=== PATIENT | male | born 1955 | race Caucasian/White ===

== ENCOUNTER → 2019-05-28 | Outpatient (CLI) | payer MEDICARE ==
[~2019-05-28] MED LIST: ALPR.5 PO; AMLO10 PO; ASPI325 PO; ATEN100 PO; ATEN25 PO; ATOR40TA PO; Aspirin EC81 MG PO; CARV25 PO; CLON.1 PO; CLOP75 PO; HYDCHL12.5 PO; LISI20 PO; LISI5 PO; LOVA40 PO; META800 PO; NICO21TP TOP; OLME20 PO; OXYC10ER PO; OXYC10TA19 PO; TRAM50 PO; Zofran4 MG PO
== END | disposition home or self-care (01) ==
LOC: LAB 08:30 → LAB SHORT 08:30 → LAB FUT 05-21 11:55
PROVIDERS: Internal Medicine
DX: Z00.01 Encounter for general adult medical examination with abnormal findings (principal)
CPT/HCPCS: 81050

== ENCOUNTER 2020-01-15 22:11 | Observation (INO) | payer MEDICARE ==
[2020-01-15 22:37] LABS: BASOPHILS ABSOLUTE AUTO 0.04 K/mm3 (0.00-0.23); BASOPHILS PERCENT AUTO 1 % (0-2); EOSINOPHILS PERCENT AUTO 3 % (0-6); Hematocrit 48.4 % (37.0-53.0); IMMATURE GRAN ABSOLUTE AUTO 0.03 K/mm3 (0.00-0.10); IMMATURE GRAN PERCENT AUTO 0 % (0-1); LYMPHOCYTES ABSOLUTE AUTO 2.58 K/mm3 (0.84-5.20); LYMPHOCYTES PERCENT AUTO 29 % (21-46); MONOCYTES ABSOLUTE AUTO 0.67 K/mm3 (0.16-1.47); MONOCYTES PERCENT AUTO 8 % (4-13); Mean Corpuscular HGB 32.1 pg (26.0-34.0); Mean Corpuscular HGB Conc 33.1 g/dL (31.5-36.5); Mean Corpuscular Volume 97 fL (80-100); Mean Platelet Volume 9.1 fL (9.1-12.4); NEUTROPHILS ABSOLUTE AUTO 5.21 K/mm3 (1.96-9.15); NEUTROPHILS PERCENT AUTO 59 % (41-73); Platelet Count 213 K/mm3 (150-400); RDW Coefficient Variation 12.3 % (11.7-14.2); Red Blood Cell Count 4.98 M/mm3 (4.30-5.90); White Blood Cell Count 8.83 K/mm3 (4.00-11.30)
[2020-01-15] MEDS ORDERED: ATEN100 PO (23:14)
[2020-01-15 23:19] LABS: Alanine Aminotransfer (ALT/SGP 32 U/L (12-78); Albumin, Blood 3.6 g/dL (3.4-5.0); Albumin/Globulin Ratio 0.9 (0.8-1.8); Alk Phos 52 U/L (50-136); Anion Gap 7 mmol/L (6-16); Aspartate Aminotrans (AST/SGOT 27 U/L (12-37); Bilirubin, Total 0.6 mg/dL (0.1-1.0); Blood Urea Nitrogen 22 mg/dL (8-24); Bun/Creatinine Ratio 12.7 (12.0-20.0); CO2, Blood 25 mmol/L (21-32); Calcium, Blood 9.4 mg/dL (8.5-10.1); Chloride, Blood 104 mmol/L (98-108); Creatinine, Blood 1.73 mg/dL (0.60-1.20); Globulin, Blood 3.8 g/dL (2.2-4.0); Glomerular Filtration Rate 42 (60-); Glucose, Blood 91 mg/dL (70-99); Potassium, Blood 3.8 mmol/L (3.5-5.5); Sodium, Blood 136 mmol/L (136-145); Total Protein, Blood 7.4 g/dL (6.4-8.2); Troponin I <0.015 ng/mL (0.000-0.040)
[2020-01-16 03:09] LABS: Source, Urine Clean Catch
[2020-01-16 03:11] LABS: Appearance, Urine Clear (Clear); Bilirubin, Urine Neg (Neg); Blood, Urine Neg (Neg); Color, Urine Amber (P-Yellow); Glucose Qualitative, Urine Neg (Neg); Ketones, Urine 1+ (Neg); Leukocyte Esterase, Urine Neg (Neg); Nitrite, Urine Neg (Neg); Protein, Urine 2+ (Neg); Urobilinogen, Urine NORM (Normal)
[2020-01-16 03:16] LABS: Red Blood Cells, Urine 0-2 /hpf (0-2); Squamous Epithelial Cells Not Seen /hpf (Few); White Blood Cells, Urine 0-2 /hpf (0-5)
[2020-01-16 03:17] LABS: Bacteria Mod /hpf
[2020-01-16 08:07] LABS: BASOPHILS ABSOLUTE AUTO 0.04 K/mm3 (0.00-0.23); BASOPHILS PERCENT AUTO 1 % (0-2); EOSINOPHILS ABSOLUTE AUTO 0.41 K/mm3 (0.00-0.68); EOSINOPHILS PERCENT AUTO 5 % (0-6); Hematocrit 48.1 % (37.0-53.0); Hemoglobin 16.1 g/dL (13.5-17.5); IMMATURE GRAN ABSOLUTE AUTO 0.03 K/mm3 (0.00-0.10); IMMATURE GRAN PERCENT AUTO 0 % (0-1); LYMPHOCYTES ABSOLUTE AUTO 2.91 K/mm3 (0.84-5.20); LYMPHOCYTES PERCENT AUTO 34 % (21-46); MONOCYTES ABSOLUTE AUTO 0.57 K/mm3 (0.16-1.47); MONOCYTES PERCENT AUTO 7 % (4-13); Mean Corpuscular HGB 32.3 pg (26.0-34.0); Mean Corpuscular HGB Conc 33.5 g/dL (31.5-36.5); Mean Corpuscular Volume 97 fL (80-100); Mean Platelet Volume 9.2 fL (9.1-12.4); NEUTROPHILS ABSOLUTE AUTO 4.49 K/mm3 (1.96-9.15); NEUTROPHILS PERCENT AUTO 53 % (41-73); Platelet Count 176 K/mm3 (150-400); RDW Coefficient Variation 12.2 % (11.7-14.2); RDW Standard Deviation 43.6 fL (35.1-46.3); Red Blood Cell Count 4.98 M/mm3 (4.30-5.90); White Blood Cell Count 8.45 K/mm3 (4.00-11.30)
[2020-01-16 08:22] LABS: Alanine Aminotransfer (ALT/SGP 31 U/L (12-78); Albumin, Blood 3.5 g/dL (3.4-5.0); Albumin/Globulin Ratio 0.9 (0.8-1.8); Alk Phos 53 U/L (50-136); Anion Gap 3 mmol/L (6-16); Aspartate Aminotrans (AST/SGOT 27 U/L (12-37); Bilirubin, Total 0.6 mg/dL (0.1-1.0); Blood Urea Nitrogen 20 mg/dL (8-24); Bun/Creatinine Ratio 17.4 (12.0-20.0); CO2, Blood 27 mmol/L (21-32); CPK Creatine Kinase 159 U/L (39-308); Calcium, Blood 9.2 mg/dL (8.5-10.1); Chloride, Blood 107 mmol/L (98-108); Creatinine, Blood 1.15 mg/dL (0.60-1.20); Globulin, Blood 3.7 g/dL (2.2-4.0); Glomerular Filtration Rate >60 (60-); Glucose, Blood 84 mg/dL (70-99); Potassium, Blood 4.1 mmol/L (3.5-5.5); Sodium, Blood 137 mmol/L (136-145); Total Protein, Blood 7.2 g/dL (6.4-8.2); Troponin I <0.015 ng/mL (0.000-0.040)
[2020-01-16] MEDS ORDERED: CLON.1 PO (11:23)
[2020-01-16] MEDS ORDERED: LOVA40 PO (11:24)
[2020-01-16] MEDS ORDERED: HYDRA25 PO (11:44)
[2020-01-16 14:43] LABS: U Amphetamine Screen DETECTED; U Barbituate Screen Not Detected; U Benzodiazapine Screen Not Detected; U Cannabinoids Screen Not Detected; U Cocaine Screen Not Detected; U Methadone Screen Not Detected; U Methamphetamine Screen DETECTED; U Opiates Screen Not Detected; U Phencyclidine Screen Not Detected
[2020-01-16 14:44] LABS: U Buprenorphine Screen Not Detected; U Oxycodone Screen Not Detected; U Propoxyphene Screen Not Detected
[2020-01-16 15:30] LABS: CPK Creatine Kinase 157 U/L (39-308); Troponin I <0.015 ng/mL (0.000-0.040)
--- NOTE | 2020-01-16 16:50 | NUR ---
Echocardiogram completed.
--- NOTE | 2020-01-16 17:18 | NUR ---
ALERT. ORIENTED. PLEASANT. UNLABORED RESPIRATIONS. DENIES C.PAIN/PRESSURE. HAD FIRST PART OF STRESS TEST AND IS SCHEDULED FOR SECOND PART TOMORROW AT 1430. NO ACUTE CHANGES. TELE ON AND SR. WCTM
--- NOTE | 2020-01-17 11:35 | NUR ---
pt c/o low back pain. no tylenol available in [facility]. called dr garrett she will order tylenol.
--- NOTE | 2020-01-17 19:38 | NUR ---
PT dc home after completing cardiac stress test. He had no complaints of chest pain on room air. Discussed encouraged smoking cessation to promote better cardiac health. 50 plus year hx of tobacco use. Declined call from [place] [facility] but encouraged to use resource to assist with smoking cessation. Ambulated to ER doors where he had ride waiting. Tolerated well.
--- NOTE | 2020-01-17 19:52 | NUR ---
DISCHARGE NOTE- PT WAS GIVEN VERBAL AND WRITTEN DISCHARGE INSTRUCTIONS AND ACKNOWLEDGED UNDERSTANDING OF THEM. CALLED DR GIL AND WAS OK TO TELL THE PT STRESS TEST RESULTS WERE NEGATIVE AND THAT SHE WILL CALL WITH THE RESULTS IN THE NEXT DAY OR TWO. IV AND TELE DC'D PRIOR TO PT DISCHARGE. PT IN THE ROOOM DRESSED AND READY TO GO, AWAITING HIS RIDE. NIGHT STAFF TO ESCORT HIM OUT.
== END 2020-01-17 19:11 | disposition home or self-care (01) ==
LOC: ER 22:11 → ICUW 22:12 → ERHOLD 22:13 → MEDS 01-16 11:21
PROVIDERS: Emergency Medicine; Family Medicine; ADMIT Internal Medicine
DX: R07.89 Other chest pain (principal); I10 Essential (primary) hypertension; J44.9 Chronic obstructive pulmonary disease, unspecified; I25.2 Old myocardial infarction; R55 Syncope and collapse; T46.3X5A Adverse effect of coronary vasodilators, initial encounter; N17.9 Acute kidney failure, unspecified; E78.5 Hyperlipidemia, unspecified; E86.0 Dehydration; F17.210 Nicotine dependence, cigarettes, uncomplicated; F15.90 Other stimulant use, unspecified, uncomplicated; Z86.19 Personal history of other infectious and parasitic diseases; Z71.6 Tobacco abuse counseling; Z82.49 Family history of ischemic heart disease and other diseases of the circulatory system; Z79.02 Long term (current) use of antithrombotics/antiplatelets; Z79.82 Long term (current) use of aspirin; Z79.899 Other long term (current) drug therapy
CPT/HCPCS: 36415; 71046; 78452; 80053; 81001; 82550; 83880; 84484; 85025; 87086; 93005; 93010; 93017; 93306; 96360; 96361; 96372; 99285-25; A9270; A9270-GY; A9500; G0378; J0706; J1650; J2785; J7030

== ENCOUNTER 2020-12-21 18:35 | Inpatient (IN) | payer MEDICARE ==
[~2020-12-21] VITALS: Ht 182.9 cm; Wt 89.9 kg
[~2020-12-21 18:35] MED LIST changes: +HYDRA25 PO
[2020-12-21 19:00] LABS: Chloride (POC) 100 mmol/L (98-108); Creatinine (POC) 1.7 mg/dL (0.8-1.3); Glucose (ISTAT POC) 114 mg/dL (70-99); Potassium (POC) 4.3 mmol/L (3.5-5.5); Sodium (POC) 139 mmol/L (135-148); Total CO2 (POC) 28 mmol/L (21-32)
[2020-12-21 19:16] LABS: BASOPHILS ABSOLUTE AUTO 0.03 K/mm3 (0.00-0.23); BASOPHILS PERCENT AUTO 0 % (0-2); EOSINOPHILS ABSOLUTE AUTO 0.25 K/mm3 (0.00-0.68); EOSINOPHILS PERCENT AUTO 2 % (0-6); Hematocrit 50.6 % (37.0-53.0); Hemoglobin 16.9 g/dL (13.5-17.5); IMMATURE GRAN ABSOLUTE AUTO 0.03 K/mm3 (0.00-0.10); IMMATURE GRAN PERCENT AUTO 0 % (0-1); LYMPHOCYTES ABSOLUTE AUTO 1.75 K/mm3 (0.84-5.20); LYMPHOCYTES PERCENT AUTO 16 % (21-46); MONOCYTES ABSOLUTE AUTO 0.53 K/mm3 (0.16-1.47); MONOCYTES PERCENT AUTO 5 % (4-13); Mean Corpuscular HGB 31.9 pg (26.0-34.0); Mean Corpuscular HGB Conc 33.4 g/dL (31.5-36.5); Mean Corpuscular Volume 96 fL (80-100); Mean Platelet Volume 9.6 fL (9.1-12.4); NEUTROPHILS ABSOLUTE AUTO 8.21 K/mm3 (1.96-9.15); NEUTROPHILS PERCENT AUTO 76 % (41-73); Platelet Count 215 K/mm3 (150-400); RDW Coefficient Variation 13.7 % (11.7-14.2); RDW Standard Deviation 48.2 fL (35.1-46.3)
[2020-12-21 19:36] LABS: Albumin, Blood 3.7 g/dL (3.4-5.0); Albumin/Globulin Ratio 0.9 (0.8-1.8); Bilirubin, Total 0.4 mg/dL (0.1-1.0); Bun/Creatinine Ratio 11.3 (12.0-20.0); Calcium, Blood 9.3 mg/dL (8.5-10.1); Creatinine, Blood 1.59 mg/dL (0.60-1.20); Globulin, Blood 4.3 g/dL (2.2-4.0); Potassium, Blood 4.3 mmol/L (3.5-5.5); Troponin I 0.201 ng/mL (0.000-0.040)
[2020-12-21] MEDS ORDERED: ASPI81CH PO (21:35)
--- NOTE | 2020-12-21 23:23 | NUR ---
ASSUMED PT CARE FROM ADULT BASIC EDUCATION MANAGER STAFF AT 2110 PT LYING IN BED ALERT AND ORIENTED AND ABLE TO COMMUNICATE NEEDS. PER REPORT TWO STENTS PLACED TO RCA; HOWEVER, PT WILL NEED OPEN HEART SURGERY IN 6 MONTHS SECONDARY TO OTHER CORONARY ARTERY BLOCKAGES. NO C/O CHEST PAIN OR TIGHTNESS. DENIED N/V. BEAD OF SWEAT NOTED TO FOREHEAD. PT NOTED TO BE NSR WITH HR 60-70'S; NO ST ELEVATION NOTED AT TIME CARE WAS ASSUMED. PT HYPERTENSIVE WITH SBP 160-200'S. MEDICATED WITH PRN HYDRALAZINE PER ORDERS. PT NOTED TO BECOME SOB WITH MINIMAL EXERTION. MINIMAL SWELLING TO ANKLES/FEET. PT EDUCATED REGARDING ECHO RESULTS FROM A YEAR AGO COMPARED TO BEDSIDE ECHO PERFORMED BY DR. VASQUEZ IN ER. PT ADMITTED TO USE OF AMPHETAMINES D/T BACK PAIN AND THE LACK OF DESIRE TO GET ANYTHING DONE AROUND THE HOME. PROVIDED EXTENSIVE ASSIST WITH DRUG ABUSE IN RELATION TO CARDIAC DISEASE; PT DEMONSTRATED VERBAL UNDERSTANDING. PT ALSO STATED HE DRINKS "SCREW DRIVERS", 1-2 DRINKS DAILY. INFORMED OF THE POSSIBILITY OF WITHDRAWALING FROM ALCOHOL DURING THIS ADMIT; PT STATED HE HAS BEEN THROUGH WITHDRAWALS IN THE PAST. AGGRASTAT WAS TURNED OFF AT 2200. EKG OBTAINED 1 HOUR POST PROCEDURE WITH NO ELEVATION OR DEPRESSION NOTED. OBTAINED ORDERS FROM DR. VASQUEZ FOR PRN NORCO SECONDARY TO PT'S CHRONIC BACK PAIN IN WHICH AT HOME HE UTILIZES MARIJUANA FOR. ALSO OBTAINED DIET ORDERS AND FENTANYL ORDERS FOR CHEST PAIN. INFORMED DR. VASQUEZ OF PT'S BP, WHICH WAS SBP 160'S DSP 111 WITH NEW ORDERS FOR NORVASC 5MG NOW AND DAILY. NS INFUSING AT 100MLS/HR VIA 18G TO LEFT AC. TR BAND TO RIGHT RADIAL SITE THAT HAS BEEN STABLE WITH NO OOZING OR HEMATOMA NOTED. STARTED RELEASING AIR AROUND 2320. CALL LIGHT IS WITHIN REACH AND PT IS ABLE TO MAKE NEEDS KNOWN. PT'S FAMILY WAS AT BEDSIDE RIGHT AFTER PROCEDURE, BUT HAVE LEFT FOR THE NIGHT.
--- NOTE | 2020-12-22 05:33 | NUR ---
END OF SHIFT SUMMARY NO SIGNIFICANT CHANGES SINCE LAST ENTRY. RIGHT RADIAL SITE REMAINS STABLE; NO OOZING OR HEMATOMA NOTED. PT'S BIGGEST COMPLAINT HAS BEEN HIS BACK PAIN, WHICH IS CHRONIC FOR HIM; PT REALISTIC ABOUT GOALS OF PAIN MANAGEMENT. STATES GOAL FOR HIM WOULD BE A 4/10 WITH PAIN MOST OF NIGHT BEING 8/10. DENIES CHEST PAIN. HE IS DIAPHORETIC WITH A BEAD OF SWEAT ACROSS FOREHEAD; PT DAILY DRINKER AT HOME; HIGH RISK OF WITHDRAWALING DURING THIS HOSPITAL STAY. VSS, SEE FLOWSHEET. PT REMAINED NSR WITH HR 60-70'S; HE DID HAVE A 3 BEAT RUN OF NON-SUSTAINED VTACH. AFEBRILE AT THIS TIME. UTILIZING URINAL TO VOID. WILL CONTINUE TO MONITOR UNTIL REPORT IS HANDED OFF TO ONCOMING RN.
[2020-12-22 06:06] LABS: BASOPHILS ABSOLUTE AUTO 0.03 K/mm3 (0.00-0.23); BASOPHILS PERCENT AUTO 0 % (0-2); EOSINOPHILS ABSOLUTE AUTO 0.34 K/mm3 (0.00-0.68); EOSINOPHILS PERCENT AUTO 4 % (0-6); Hematocrit 46.4 % (37.0-53.0); Hemoglobin 15.8 g/dL (13.5-17.5); IMMATURE GRAN ABSOLUTE AUTO 0.02 K/mm3 (0.00-0.10); IMMATURE GRAN PERCENT AUTO 0 % (0-1); LYMPHOCYTES PERCENT AUTO 28 % (21-46); MONOCYTES ABSOLUTE AUTO 0.51 K/mm3 (0.16-1.47); MONOCYTES PERCENT AUTO 6 % (4-13); Mean Corpuscular HGB 31.7 pg (26.0-34.0); Mean Corpuscular HGB Conc 34.1 g/dL (31.5-36.5); Mean Corpuscular Volume 93 fL (80-100); Mean Platelet Volume 9.6 fL (9.1-12.4); NEUTROPHILS ABSOLUTE AUTO 5.47 K/mm3 (1.96-9.15); NEUTROPHILS PERCENT AUTO 62 % (41-73); Platelet Count 107 K/mm3 (150-400); RDW Coefficient Variation 13.8 % (11.7-14.2); RDW Standard Deviation 47.1 fL (35.1-46.3); Red Blood Cell Count 4.99 M/mm3 (4.30-5.90); White Blood Cell Count 8.87 K/mm3 (4.00-11.30)
[2020-12-22 06:29] LABS: Alanine Aminotransfer (ALT/SGP 48 U/L (12-78); Albumin, Blood 3.2 g/dL (3.4-5.0); Albumin/Globulin Ratio 0.8 (0.8-1.8); Alk Phos 89 U/L (50-136); Anion Gap 6 mmol/L (6-16); Aspartate Aminotrans (AST/SGOT 192 U/L (12-37); Bilirubin, Direct 0.1 mg/dL (0.0-0.3); Bilirubin, Indirect 0.2 mg/dL (0.1-0.7); Bilirubin, Total 0.3 mg/dL (0.1-1.0); Blood Urea Nitrogen 18 mg/dL (8-24); Bun/Creatinine Ratio 14.8 (12.0-20.0); CHOL/HDL RATIO 2.7; CO2, Blood 24 mmol/L (21-32); Calcium, Blood 8.8 mg/dL (8.5-10.1); Chloride, Blood 108 mmol/L (98-108); Cholesterol 153 mg/dL (50-200); Creatinine, Blood 1.22 mg/dL (0.60-1.20); Globulin, Blood 3.9 g/dL (2.2-4.0); Glomerular Filtration Rate >60 (60-); Glucose, Blood 103 mg/dL (70-99); HDL Cholesterol 56 mg/dL (>39); LDL/HDL RATIO 0.9; Low Density Lipoprotein Chol 53 mg/dL (0-110); Potassium, Blood 3.8 mmol/L (3.5-5.5); Sodium, Blood 138 mmol/L (136-145); Total Protein, Blood 7.1 g/dL (6.4-8.2); Triglycerides 221 mg/dL (30-160); Very Low Density Lipoprot Chol 44 mg/dL (6-32)
--- NOTE | 2020-12-22 07:30 | NUR ---
Received report from Elsy AYALA. Patient sitting on side of bed leaning on bedside table. He ia alert and oriented and is able to communicate his needs. He is on 2L O2 via NC and sats 97%.He biggest complaint, unmanaged back pain. MAEW. VSS, but hypertensive, r/t back pain and possible withdrawls. Possible transfer for CABG. Patient calls appropriately.
--- NOTE | 2020-12-22 07:34 | NUR ---
TR band site WNL's and cover with clear op site, no oozing or hematoma.
--- NOTE | 2020-12-22 09:30 | NUR ---
Patient up to chair independent and SBA with lines and tubes, systolic 150's and other VSS. Tolerated breakfast well. Dr Whitney consulted and in room assessing patient. NS at 100 ended. Remains on 2L O2 via NC sats >90%. 18ga IV to LAC and 20 ga to RAC both WNL's.
--- NOTE | 2020-12-22 11:30 | NUR ---
No significant changes with patient, he has been resting and just started eating lunch. States changes to pain meds worked better. VSS See EMR.
--- NOTE | 2020-12-22 14:24 | NUR ---
No changes with patient, denies any chest pain . Will medicate for back pain. He is independent in room and call appropriately when needing something. Dr Yi was by earlier for consent for cath tomorrow.
--- NOTE | 2020-12-22 18:19 | NUR ---
Patient remains independent in room from chair to bed to cammode. He calls appropriately when needing to get up. He tolerates meals withourt assist. He remains on 2l o2 and sats >90%. VSS, See EMR. Back hurts and medicate per MAR and keeps pain tolerable 5/10. Anxious at times and gets better after rest. He is PCU status since 1100, no rooms available.
--- NOTE | 2020-12-22 20:10 | NUR ---
ASSESSMENT/ASSUMED CARE PT AWAKE SITTING UP IN BED USING PHONE AND WATCHING TV. C/O BACK PAIN STATES,"I ALWAYS HAVE BACK PAIN NO MATTER WHAT I DO". PT MED WITH FENTANYL 25 MCQ. PT RESTING QUIETLY AFTER PAIN MED. LUNGS CLEAR ON 2 LITER VIA NC. PT DENIES SOB OR COUGH. PT STATES,"I HAD SOB WHEN I FIRTS CAME INTO THE HOSPITAL BUT IT HAS RESOLVED NOW". HEART RATE REGULAR. DENIES CHEST PAIN OR PRESSURE. BP ELEVATED PT GIVEN HS MEDS WITH HYDRALAZONE AND LOPRESSOR. BT+ ABD SOFT AND NONTENDER, DENIES N/V. RIGHT WRIST TR SITE CLEAR WITH OPSITE DRSG INTACT. IV 20G TO RIGHT AC SALINE LOCKED. SITE CLEAR AND FLUSHED WITHOUT DIFFICULTY. IV 18G TO LEFT AC SALINE LOCKED. SITE CLEAR AND FLUSHED WITHOUT DIFFICULTY. PT MOVING AND TURNING SELF IN BED. REFUSED HS CARE AT THIS TIME. STATES,"I'M GOING GOOD RIGHT NOW JUST GOING TO TRY AND SLEEP". PT WITH CALL LIGHT IN HAND.
--- NOTE | 2020-12-22 22:57 | NUR ---
PAIN PT UP TO CHAIR AND BED LINEN FIXED. THAN PT BACK TO BED. C/O BACK PAIN 01/10, MED WITH NORCO.
--- NOTE | 2020-12-23 00:14 | NUR ---
REASESSMENT PT SLEEPING. CELL PHONE IN BED WITH PT. VSS. RIGHT WRIST STABLE. RESP EVEN AND NONLABORED. SNORING NOTED AT TIMES. O2 AT 2 LITERS VIA NC.PT MOVING SELF IN BED.
[2020-12-23 02:04] LABS: BASOPHILS ABSOLUTE AUTO 0.05 K/mm3 (0.00-0.23); BASOPHILS PERCENT AUTO 1 % (0-2); EOSINOPHILS ABSOLUTE AUTO 0.47 K/mm3 (0.00-0.68); EOSINOPHILS PERCENT AUTO 5 % (0-6); Hematocrit 44.2 % (37.0-53.0); Hemoglobin 14.9 g/dL (13.5-17.5); IMMATURE GRAN ABSOLUTE AUTO 0.03 K/mm3 (0.00-0.10); IMMATURE GRAN PERCENT AUTO 0 % (0-1); LYMPHOCYTES ABSOLUTE AUTO 2.54 K/mm3 (0.84-5.20); LYMPHOCYTES PERCENT AUTO 26 % (21-46); MONOCYTES ABSOLUTE AUTO 0.58 K/mm3 (0.16-1.47); MONOCYTES PERCENT AUTO 6 % (4-13); Mean Corpuscular HGB 31.7 pg (26.0-34.0); Mean Corpuscular HGB Conc 33.7 g/dL (31.5-36.5); Mean Corpuscular Volume 94 fL (80-100); Mean Platelet Volume 9.9 fL (9.1-12.4); NEUTROPHILS ABSOLUTE AUTO 5.98 K/mm3 (1.96-9.15); NEUTROPHILS PERCENT AUTO 62 % (41-73); Platelet Count 116 K/mm3 (150-400); RDW Standard Deviation 48.5 fL (35.1-46.3); White Blood Cell Count 9.65 K/mm3 (4.00-11.30)
[2020-12-23 02:28] LABS: Alanine Aminotransfer (ALT/SGP 40 U/L (12-78); Albumin, Blood 3.1 g/dL (3.4-5.0); Albumin/Globulin Ratio 0.9 (0.8-1.8); Alk Phos 66 U/L (50-136); Anion Gap 6 mmol/L (6-16); Aspartate Aminotrans (AST/SGOT 102 U/L (12-37); Bilirubin, Total 0.5 mg/dL (0.1-1.0); Blood Urea Nitrogen 20 mg/dL (8-24); Bun/Creatinine Ratio 18.2 (12.0-20.0); CO2, Blood 27 mmol/L (21-32); Calcium, Blood 8.8 mg/dL (8.5-10.1); Chloride, Blood 103 mmol/L (98-108); Globulin, Blood 3.3 g/dL (2.2-4.0); Glomerular Filtration Rate >60 (60-); Glucose, Blood 96 mg/dL (70-99); Sodium, Blood 136 mmol/L (136-145); Total Protein, Blood 6.4 g/dL (6.4-8.2)
--- NOTE | 2020-12-23 03:59 | NUR ---
PT SITTING ON EDGE OF THE BED USING HIS PHONE. ASKED PT IF HE WANTED THE RECLINER PT STATED,"NO IT FEELS GOOD TO JUST SIT HERE AND MOVE MY BACK AROUND". VSS
--- NOTE | 2020-12-23 04:21 | NUR ---
HTN PT BP 183/91 HEART RATE 63, MED WITH 10 MG HYDRALAZINE AND BP CAME DOWN TO 127/68 HEART RATE 60.
--- NOTE | 2020-12-23 06:12 | NUR ---
SHIFT SUMMARY PT SITTING UP IN BED TALKING ON THE PHONE. DAUGHTER CALLED AND UPDATE GIVEN. PT MED WITH FENTANYL 25 MCQ AND NORCO DURING THE NIGHT FOR C/O BACK PAIN WITH GOOD RESULTS. VSS. PT UP TO SIDE OF THE BED AD [place] TO VOID. MOVING AND TURNING SELF IN BED. TROPONIN LEVELS DECREASING. NO CHEST PAIN OR PRESSURE REPORTED. PT MED WITH PRN HYDRALAZINE TWICE DURING THE NIGHT FOR HTN. REPORT TO ON COMING NURSE
--- NOTE | 2020-12-23 07:15 | NUR ---
Patient resting when getting report and awakens easily when entering room and falls back to sleep. He remains on 2L O2 via NC and sats >90%. He is alert and oriented and is able to communicate his needs. He shows mild tremors and staes mild anxiousness when awake. He has 18ga LAC and 20ga RAC bothe Flushed and SL'd. He is independent in bed and in room and calls when getting out of bed for lines. MAEW. [place]upe TR Band site C/D/I and has clear op site over area and no signs of hematoma or oozing. He will be going vback to quality assurance lab technician today before noon.
--- NOTE | 2020-12-23 09:50 | NUR ---
patient was taken to [facility] for 2nd cath. Call daughter at 0845 and advised so she could come to see him as she requested at her visit resterday. He is NPO and all am meds given with sips of water and tolerated well, medicated for back pain as well prior to them getting him.
--- NOTE | 2020-12-23 11:04 | NUR ---
Patient arrived back from bottle label inspector on monitor and has right TR Band access with 13 ml of air. Very small hematoma proximal of TR band and will continue to monitor. First set of VS are stable and WNL's. Patient is awake and oriented and able to communicate his needs and tolerating liquids well. 400 ml urine out
--- NOTE | 2020-12-23 13:30 | NUR ---
Patient has been with family at bedside. No significant changes. Right TR band site WNL's. VSS, See EMR. NS at 100ml/hr.
--- NOTE | 2020-12-23 15:30 | NUR ---
Let 3 ml air from TR band and no bleeding or oozing. VSS, See EMR. Patient independent in bed. NS continues at 100 ml/hr. He has been finally sleeping post pain medication.
--- NOTE | 2020-12-23 18:00 | NUR ---
All air out of Tr Band and placed bandaid over site. Site C/D/I and WNL's. he remains independent in room. VSS See EMR. Stands at bedside to urinate/ NS continues at 100ml/hr until bag is done.
--- NOTE | 2020-12-23 23:59 | NUR ---
CHECKED IN ON PATIENT, PATIENT APPEARS TO BE SLEEPING.
--- NOTE | 2020-12-24 04:05 | NUR ---
PT HAS BEEN SLEEPING, HE CALLS OUT IN HIS SLEEP. AWAKENS TO VOICE AND LIGHT TOUCH, DENIES ANY NEEDS. CONTINUES TO USE URINAL AND POSITION SELF PRN.
--- NOTE | 2020-12-24 06:51 | NUR ---
PT AWAKENS AND STATES HE WOULD LIKE SOME PAIN MEDICATION FOR HIS BACK, IF IT IS TIME. HE DENIES ANY OTHER COMPLAINTS AT THIS TIME, ASKED IF WAS HOLLERING OUT IN HIS SLEEP AND HE APOLOGIZED. HE CONTINUES TO BE WITHOUT ANY NEEDS.
[2020-12-24 07:21] LABS: BASOPHILS ABSOLUTE AUTO 0.04 K/mm3 (0.00-0.23); BASOPHILS PERCENT AUTO 0 % (0-2); EOSINOPHILS ABSOLUTE AUTO 0.62 K/mm3 (0.00-0.68); EOSINOPHILS PERCENT AUTO 7 % (0-6); Hematocrit 45.8 % (37.0-53.0); Hemoglobin 15.3 g/dL (13.5-17.5); IMMATURE GRAN ABSOLUTE AUTO 0.03 K/mm3 (0.00-0.10); IMMATURE GRAN PERCENT AUTO 0 % (0-1); LYMPHOCYTES ABSOLUTE AUTO 2.36 K/mm3 (0.84-5.20); LYMPHOCYTES PERCENT AUTO 25 % (21-46); MONOCYTES ABSOLUTE AUTO 0.63 K/mm3 (0.16-1.47); MONOCYTES PERCENT AUTO 7 % (4-13); Mean Corpuscular HGB 31.2 pg (26.0-34.0); Mean Corpuscular HGB Conc 33.4 g/dL (31.5-36.5); Mean Corpuscular Volume 93 fL (80-100); Mean Platelet Volume 9.7 fL (9.1-12.4); NEUTROPHILS ABSOLUTE AUTO 5.87 K/mm3 (1.96-9.15); NEUTROPHILS PERCENT AUTO 62 % (41-73); Platelet Count 139 K/mm3 (150-400); RDW Coefficient Variation 13.9 % (11.7-14.2); RDW Standard Deviation 47.7 fL (35.1-46.3); Red Blood Cell Count 4.91 M/mm3 (4.30-5.90); White Blood Cell Count 9.55 K/mm3 (4.00-11.30)
[2020-12-24 07:36] LABS: Anion Gap 5 mmol/L (6-16); Blood Urea Nitrogen 15 mg/dL (8-24); Bun/Creatinine Ratio 15.1 (12.0-20.0); CO2, Blood 27 mmol/L (21-32); Calcium, Blood 9.3 mg/dL (8.5-10.1); Chloride, Blood 102 mmol/L (98-108); Glomerular Filtration Rate >60 (60-); Glucose, Blood 92 mg/dL (70-99); Potassium, Blood 3.9 mmol/L (3.5-5.5); Sodium, Blood 134 mmol/L (136-145)
[2020-12-24] MEDS ORDERED: ATOR80 PO (10:38)
[2020-12-24] MEDS ORDERED: METO25ER PO (10:38)
[2020-12-24] MEDS ORDERED: BRILINTA90 M1 PO (10:39)
[2020-12-24] MEDS ORDERED: FURO20 PO (10:39)
[2020-12-24] MEDS ORDERED: Isosorbide Mono30 MG PO (10:40)
[2020-12-24] MEDS ORDERED: NICO2 PO (10:41)
[2020-12-24] MEDS ORDERED: NICOTINE GUM2 M1 PO (10:42)
--- NOTE | 2020-12-24 13:05 | NUR ---
SHIFT SUMMARY PT A&Ox4; CALM AND COOPERATIVE WITH CARE. PT APPEARS TO BE SLEEPING INTERMITTENLY T/O SHIFT. PT RESTING IN BED, UP WITH 1 PERSON ASSIST TO BATHROOM. PT DENIES CHEST PAIN, NAUSEA, DIZZINESS AND NUMB/TING. PT REPORTS BACK PAIN, MEDICATED PER EMAR. RIGHT RADIAL SIDE C/D/I. VSS. NO OTHER ACUTE CHANGES NOTED DURING SHIFT. PT AND DAUGHTER EDUCATED ON DISCHARGE INSTRUCTIONS, FOLLOW UP APPOINTMENT AND MEDICATIONS. PRESCRIPTIONS FAXED TO [facility] IN [facility] PER PT REQUEST. ATTEMPTED TO CALL AND MAKE FOLLOW UP APPOINTMENT FOR DR JACKSON, OFFICE CALLED BACK STATING THEY WOULD NOT SEE PATIENT UNTIL AFTER CARDIOLOGY FOLLOW UP. NOTIFIED PTSYED PLANS TO CALL AND SPEAK TO OFFICE. PT LEFT ROOM VIA WHEELCHAIR AT 1252.
== END 2020-12-24 12:52 | disposition home or self-care (01) | DRG 247 ==
LOC: ER 18:35 → ICUW 19:20
PROVIDERS: Family Medicine; Internal Medicine; Physician Assistant; ADMIT Internal Medicine Cardiovascular Disease
PROC: 027035Z Dilation of Coronary Artery, One Artery with Two Drug-eluting Intraluminal Devices, Percutaneous Approach (ICD-10-PCS; principal; 2020-12-21)
PROC: 4A023N7 Measurement of Cardiac Sampling and Pressure, Left Heart, Percutaneous Approach (ICD-10-PCS; 2020-12-21)
PROC: B2111ZZ Fluoroscopy of Multiple Coronary Arteries using Low Osmolar Contrast (ICD-10-PCS; 2020-12-22)
PROC: 027034Z Dilation of Coronary Artery, One Artery with Drug-eluting Intraluminal Device, Percutaneous Approach (ICD-10-PCS; 2020-12-23)
PROC: 4A023N7 Measurement of Cardiac Sampling and Pressure, Left Heart, Percutaneous Approach (ICD-10-PCS; 2020-12-23)
PROC: B2111ZZ Fluoroscopy of Multiple Coronary Arteries using Low Osmolar Contrast (ICD-10-PCS; 2020-12-23)
DX: I21.19 ST elevation (STEMI) myocardial infarction involving other coronary artery of inferior wall (principal); N17.9 Acute kidney failure, unspecified; N18.30 Chronic kidney disease, stage 3 unspecified; F10.20 Alcohol dependence, uncomplicated; M54.9 Dorsalgia, unspecified; G89.29 Other chronic pain; J44.9 Chronic obstructive pulmonary disease, unspecified; I25.10 Atherosclerotic heart disease of native coronary artery without angina pectoris; E11.22 Type 2 diabetes mellitus with diabetic chronic kidney disease; E78.5 Hyperlipidemia, unspecified; I12.9 Hypertensive chronic kidney disease with stage 1 through stage 4 chronic kidney disease, or unspecified chronic kidney disease; F15.10 Other stimulant abuse, uncomplicated; F17.210 Nicotine dependence, cigarettes, uncomplicated; Z71.51 Drug abuse counseling and surveillance of drug abuser; Z71.6 Tobacco abuse counseling; I25.2 Old myocardial infarction; Z79.899 Other long term (current) drug therapy; Z79.82 Long term (current) use of aspirin; Z98.890 Other specified postprocedural states; Z71.41 Alcohol abuse counseling and surveillance of alcoholic
CPT/HCPCS: 36415; 76937; 80047; 80048; 80053; 80061; 80076; 83036; 83880; 84484; 85014; 85025; 85347; 93005; 93010; 93306; 93458; 94640; 96374-59; 96375-59; 99152; 99153; 99285-25; A9270; C1725; C1769; C1874; C1887; C1894; C9600; C9606; J0360; J0461; J1644; J2250; J2270; J2370; J3010; J3246; J7030; J7040; J7050; Q9967

== ENCOUNTER 2020-12-28 04:04 | Inpatient (IN) | payer MEDICARE ==
[~2020-12-28] VITALS: Ht 182.9 cm; Wt 91.2 kg
[~2020-12-28 04:04] MED LIST changes: +ASPI81CH PO; +ATOR80 PO; +BRILINTA90 M1 PO; +FURO20 PO; +Isosorbide Mono30 MG PO; +METO25ER PO; +NICO2 PO; +NICOTINE GUM2 M1 PO
[2020-12-28 04:20] LABS: Calcium, Ionized (POC) 1.17 mmol/L (1.10-1.46); Chloride (POC) 102 mmol/L (98-108); Creatinine (POC) 1.4 mg/dL (0.8-1.3); Glucose (ISTAT POC) 165 mg/dL (70-99); Potassium (POC) 3.8 mmol/L (3.5-5.5); Sodium (POC) 141 mmol/L (135-148); Total CO2 (POC) 24 mmol/L (21-32)
[2020-12-28 04:23] LABS: Hematocrit 46.6 % (37.0-53.0); Hemoglobin 15.7 g/dL (13.5-17.5); Mean Corpuscular HGB 32.2 pg (26.0-34.0); Mean Corpuscular HGB Conc 33.7 g/dL (31.5-36.5); Mean Corpuscular Volume 96 fL (80-100); Mean Platelet Volume 9.1 fL (9.1-12.4); Platelet Count 228 K/mm3 (150-400); RDW Standard Deviation 49.2 fL (35.1-46.3); Red Blood Cell Count 4.87 M/mm3 (4.30-5.90); White Blood Cell Count 12.95 K/mm3 (4.00-11.30)
[2020-12-28 04:55] LABS: Alanine Aminotransfer (ALT/SGP 50 U/L (12-78); Albumin, Blood 3.4 g/dL (3.4-5.0); Albumin/Globulin Ratio 0.8 (0.8-1.8); Alk Phos 110 U/L (50-136); Anion Gap 6 mmol/L (6-16); Aspartate Aminotrans (AST/SGOT 36 U/L (12-37); Bilirubin, Total 0.3 mg/dL (0.1-1.0); Blood Urea Nitrogen 20 mg/dL (8-24); Bun/Creatinine Ratio 16.1 (12.0-20.0); CO2, Blood 27 mmol/L (21-32); Calcium, Blood 9.1 mg/dL (8.5-10.1); Chloride, Blood 106 mmol/L (98-108); Creatinine, Blood 1.24 mg/dL (0.60-1.20); Glomerular Filtration Rate >60 (60-); Glucose, Blood 164 mg/dL (70-99); Magnesium, Blood 2.1 mg/dL (1.6-2.4); Potassium, Blood 3.7 mmol/L (3.5-5.5); Sodium, Blood 139 mmol/L (136-145); Total Protein, Blood 7.4 g/dL (6.4-8.2)
[2020-12-28 05:57] LABS: Troponin I 0.518 ng/mL (0.000-0.040)
[2020-12-28 06:56] LABS: BASOPHILS ABSOLUTE AUTO 0.04 K/mm3 (0.00-0.23); BASOPHILS PERCENT AUTO 0 % (0-2); EOSINOPHILS ABSOLUTE AUTO 0.18 K/mm3 (0.00-0.68); EOSINOPHILS PERCENT AUTO 2 % (0-6); Hematocrit 49.2 % (37.0-53.0); Hemoglobin 16.2 g/dL (13.5-17.5); IMMATURE GRAN PERCENT AUTO 1 % (0-1); LYMPHOCYTES ABSOLUTE AUTO 0.72 K/mm3 (0.84-5.20); LYMPHOCYTES PERCENT AUTO 7 % (21-46); MONOCYTES ABSOLUTE AUTO 0.12 K/mm3 (0.16-1.47); MONOCYTES PERCENT AUTO 1 % (4-13); Mean Corpuscular HGB 31.7 pg (26.0-34.0); Mean Corpuscular HGB Conc 32.9 g/dL (31.5-36.5); Mean Corpuscular Volume 96 fL (80-100); NEUTROPHILS ABSOLUTE AUTO 9.28 K/mm3 (1.96-9.15); NEUTROPHILS PERCENT AUTO 89 % (41-73); RDW Coefficient Variation 13.8 % (11.7-14.2); RDW Standard Deviation 49.1 fL (35.1-46.3); Red Blood Cell Count 5.11 M/mm3 (4.30-5.90); White Blood Cell Count 10.44 K/mm3 (4.00-11.30)
--- NOTE | 2020-12-28 07:11 | NUR ---
ASSUMPTION OF CARE RECEIVED REPORT FROM FER IN FILE KEEPER. PATIENT ARRIVED TO ROOM VIA BED AT 0606. A/O, STATING 7/10 BACK PAIN FROM LAYING FLAT. REPOSITIONED PATIENT WITH SLIGHT RELIEF. WATER PROVIDED. VITALS STABLE. DR. MOYER TO BEDSIDE AND REVIEWED AGGROSTAT INFUSING, GAVE EKG ORDERS, AND SPOKE WITH ROLLER LEVELER OPERATOR REGARDING PO MEDICATIONS TO ORDER. AGGROSTAT WILL CONTINUE AT CURRENT RATE UNTIL BAG IS COMPLETE. FAMILY ARRIVED TO UNIT AND ARE CURRENLTY SITTING AT BEDSIDE. REPORT WAS GIVEN TO ERIC AYALA.
--- NOTE | 2020-12-28 07:24 | NUR ---
Assumed care of this patient. He is A/o x 4 and resting in bed. His daughter and son are at the bedside and have been notified of regular visiting hours. Pt reports he has chronic back pain but currently has not been taking any pain meds at home. The TR band is in place to right wrist with no abnormal bruising or bleeding noted. Pt is able to make his needs known.
[2020-12-28 07:54] LABS: Platelet Count 34 K/mm3 (150-400)
--- NOTE | 2020-12-28 10:00 | NUR ---
AT 1000 2 ML REMOVED FROM TR BAND BALOON TO RIGHT WRIST WITH NO BLEEDING OBSERVED.
--- NOTE | 2020-12-28 10:00 | NUR ---
AT 0900 1 ML REMOVED FROM THE BALOON ON THE TR BAND TO RIGHT WRIST. NO BLEEDING OBSERVED.
--- NOTE | 2020-12-28 10:07 | NUR ---
lab reported critcal values on Trops and platelets this morning and they were called to the charge nurse and Dr Morales. Dr Morales gave orders to stop the Aggrastat, which was done and to hold this morning's dose of the Brilinta since he had it in the ER early this morning. Pt was able to take all other ordered PO meds with no issue. He does complain of chronic back pain and tylenol was given as ordered. Pt has a heat pad on and has been repositioned in bed. He is currently resting with his eyes closed. He has been using the urinal at the bedside and has been calling appropriately.
--- NOTE | 2020-12-28 10:34 | NUR ---
2 ml of air removed from TR band at 1030. No bleeding noted.
--- NOTE | 2020-12-28 10:48 | NUR ---
2 ml air removed from TR band at 1045 with no bleeding noted.
--- NOTE | 2020-12-28 11:17 | NUR ---
3 ml air out of the TR band at 11:15 with no bleeding observed.
--- NOTE | 2020-12-28 11:47 | NUR ---
3 ML OF AIR REMOVED FROM TR Band with no bleeding observed. Pt is sitting up in bed eating lunch.
--- NOTE | 2020-12-28 12:59 | NUR ---
TR band removed as ordered with no bleeding observed. Transparent dressing applied. Pt is resting in bed with eyes closed and has his call light in reach.
--- NOTE | 2020-12-28 16:53 | NUR ---
Shift Summary Pt has been a/o x 4 all day with no c/o chest pain or discomfort. He does report chronic back pain and tylenol has been given as ordered. He was offered to get out of bed and sit in the recliner but declined and has been using the heating pad on and off throughout the day. Dr Morales ordered a hospitlaist to assist with pain mangement and Dr Morrison has just seen the pt at the bedside. Pt remains on room air. Right wrist access site has a clear window dressing in place with no bleeding. Dr Morales rounded on the pt this afternoon. Pt son came back to visit this afternoon but left after a short stay since the pt was sleeping. The pt is able to make his needs known. And has his call light in reach.
[2020-12-29 04:18] LABS: BASOPHILS ABSOLUTE AUTO 0.04 K/mm3 (0.00-0.23); BASOPHILS PERCENT AUTO 0 % (0-2); EOSINOPHILS ABSOLUTE AUTO 0.44 K/mm3 (0.00-0.68); EOSINOPHILS PERCENT AUTO 4 % (0-6); Hematocrit 43.7 % (37.0-53.0); Hemoglobin 14.4 g/dL (13.5-17.5); IMMATURE GRAN ABSOLUTE AUTO 0.04 K/mm3 (0.00-0.10); IMMATURE GRAN PERCENT AUTO 0 % (0-1); LYMPHOCYTES ABSOLUTE AUTO 2.71 K/mm3 (0.84-5.20); LYMPHOCYTES PERCENT AUTO 27 % (21-46); MONOCYTES ABSOLUTE AUTO 0.81 K/mm3 (0.16-1.47); MONOCYTES PERCENT AUTO 8 % (4-13); Mean Corpuscular HGB 31.4 pg (26.0-34.0); Mean Corpuscular Volume 95 fL (80-100); Mean Platelet Volume 12.3 fL (9.1-12.4); NEUTROPHILS ABSOLUTE AUTO 5.93 K/mm3 (1.96-9.15); NEUTROPHILS PERCENT AUTO 60 % (41-73); RDW Coefficient Variation 13.9 % (11.7-14.2); RDW Standard Deviation 48.9 fL (35.1-46.3); Red Blood Cell Count 4.58 M/mm3 (4.30-5.90); White Blood Cell Count 9.97 K/mm3 (4.00-11.30)
[2020-12-29 04:21] LABS: Platelet Count 24 K/mm3 (150-400)
[2020-12-29 04:35] LABS: Anion Gap 3 mmol/L (6-16); Blood Urea Nitrogen 17 mg/dL (8-24); Bun/Creatinine Ratio 16.7 (12.0-20.0); CO2, Blood 28 mmol/L (21-32); Chloride, Blood 105 mmol/L (98-108); Creatinine, Blood 1.02 mg/dL (0.60-1.20); Glomerular Filtration Rate >60 (60-); Glucose, Blood 98 mg/dL (70-99); Potassium, Blood 3.9 mmol/L (3.5-5.5); Sodium, Blood 136 mmol/L (136-145)
--- NOTE | 2020-12-29 04:56 | NUR ---
PT UPDATE LAB CALLED WITH CRITICAL VALUE OF PLATELETS: 24. CALL PLACED TO MD GIL. MD GIL WITH NO ORDERS AT THIS TIME.
--- NOTE | 2020-12-29 04:59 | NUR ---
SHIFT SUMMARY PT A&OX4. SP02>90% ON RA. TELEMETRY READS SR, HR 60'S-70'S. PT HAS R RADIAL SITE, NO BLEEDING, BRUISING, HEMATOMA. PT DENIES CP. PT DID C/O OF BACK PAIN THIS SHIFT, NORCO GIVEN PER EMAR X1. PT USED URINAL TO VOID. PT SLEPT MOST OF SHIFT. WILL GIVE REPORT TO ONCOMING NURSE.
--- NOTE | 2020-12-29 05:20 | NUR ---
ASSUMED CARE RECEIVED BEDSIDE REPORT FROM DARNELL AYALA AND ASSUMED CARE. PT IS RESTING IN BED, RADIAL SITE WNL WITH NO COMPLICATIONS, DENIES CHEST PAIN, C/O CHRONIC BACK PAIN WHICH HAS BEEN STABLE AND MEDICATED PER EMAR. NO ACUTE CONCERNS, WILL REPORT OFF TO DAY SHIFT RN.
[2020-12-29 11:35] LABS: BASOPHILS ABSOLUTE AUTO 0.03 K/mm3 (0.00-0.23); BASOPHILS PERCENT AUTO 0 % (0-2); EOSINOPHILS PERCENT AUTO 5 % (0-6); IMMATURE GRAN ABSOLUTE AUTO 0.03 K/mm3 (0.00-0.10); IMMATURE GRAN PERCENT AUTO 0 % (0-1); LYMPHOCYTES PERCENT AUTO 23 % (21-46); MONOCYTES PERCENT AUTO 7 % (4-13); Mean Corpuscular HGB 31.8 pg (26.0-34.0); Mean Corpuscular HGB Conc 33.4 g/dL (31.5-36.5); Mean Corpuscular Volume 95 fL (80-100); Mean Platelet Volume 11.2 fL (9.1-12.4); NEUTROPHILS PERCENT AUTO 64 % (41-73); RDW Coefficient Variation 13.7 % (11.7-14.2); RDW Standard Deviation 48.3 fL (35.1-46.3)
[2020-12-29 12:43] LABS: Platelet Count 28 K/mm3 (150-400)
[2020-12-29 12:51] LABS: Red Blood Cell Count 4.77 M/mm3 (4.30-5.90)
[2020-12-29 12:52] LABS: MONOCYTES ABSOLUTE AUTO 0.69 K/mm3 (0.16-1.47); NEUTROPHILS ABSOLUTE AUTO 6.05 K/mm3 (1.96-9.15)
[2020-12-29 12:53] LABS: EOSINOPHILS ABSOLUTE AUTO 0.47 K/mm3 (0.00-0.68)
[2020-12-29 12:55] LABS: Hematocrit 45.3 % (37.0-53.0)
--- NOTE | 2020-12-29 15:22 | NUR ---
Echocardiogram completed.
--- NOTE | 2020-12-29 18:29 | NUR ---
SHIFT SUMMARY PT A&Ox4, CALM AND COOPERATIVE WITH CARE. PT RESTING IN BED DURING SHIFT. UP WITH 1 PERSON ASSIST. PT REPORTS BACK PAIN, MEDICATED PER EMAR. PT DENIES CHEST PAIN/PRESSURE, SOB, NAUSEA AND DIZZINESS T/O SHIFT. CALLED DR MOYER TO [facility] ORDERS FOR BRILINTA AND CURRENT PLATLET COUNT, CONTINUE WITH SCHEDULE MEDICATION AND ENSURE PT DOES NOT RECEIIVE HEPARIN OR LOVENOX. ELEVATED BP NOTED, MEDICATED PER EMAR. OTHER VSS. NO OTHER ACUTE CHANGES DURING SHIFT. REPORT GIVEN TO ONCOMING RN.
--- NOTE | 2020-12-30 03:33 | NUR ---
TELE EVENT CHERRY SORTER REPORTED SINUS KAIR FOLLOWED BY A 2.8 SECOND PAUSE, PT WAS SLEEPING AT THE TIME, THIS RN WAS IN THE ROOM, PT WOKE UP WITH NO PROBLEMS, DENIES ANY CHEST PAIN/PRESSURE OR SYMPTOMS, VSS, RESP UNLABORED, ON RA. WCTM, CALL LIGHT IN REACH. COMPUTER VIDEO GAME DESIGNER NOTIFIED.
[2020-12-30 04:21] LABS: BASOPHILS ABSOLUTE AUTO 0.04 K/mm3 (0.00-0.23); BASOPHILS PERCENT AUTO 0 % (0-2); EOSINOPHILS ABSOLUTE AUTO 0.51 K/mm3 (0.00-0.68); EOSINOPHILS PERCENT AUTO 5 % (0-6); Hemoglobin 14.8 g/dL (13.5-17.5); IMMATURE GRAN ABSOLUTE AUTO 0.07 K/mm3 (0.00-0.10); IMMATURE GRAN PERCENT AUTO 1 % (0-1); LYMPHOCYTES ABSOLUTE AUTO 2.77 K/mm3 (0.84-5.20); LYMPHOCYTES PERCENT AUTO 27 % (21-46); MONOCYTES ABSOLUTE AUTO 0.88 K/mm3 (0.16-1.47); MONOCYTES PERCENT AUTO 8 % (4-13); Mean Corpuscular HGB 31.5 pg (26.0-34.0); Mean Corpuscular HGB Conc 33.6 g/dL (31.5-36.5); Mean Corpuscular Volume 94 fL (80-100); Mean Platelet Volume 10.6 fL (9.1-12.4); NEUTROPHILS ABSOLUTE AUTO 6.18 K/mm3 (1.96-9.15); NEUTROPHILS PERCENT AUTO 59 % (41-73); Platelet Count 65 K/mm3 (150-400); RDW Coefficient Variation 13.3 % (11.7-14.2); RDW Standard Deviation 45.8 fL (35.1-46.3); White Blood Cell Count 10.45 K/mm3 (4.00-11.30)
[2020-12-30 04:33] LABS: Anion Gap 5 mmol/L (6-16); Blood Urea Nitrogen 18 mg/dL (8-24); Bun/Creatinine Ratio 16.4 (12.0-20.0); CO2, Blood 27 mmol/L (21-32); Calcium, Blood 8.9 mg/dL (8.5-10.1); Chloride, Blood 105 mmol/L (98-108); Glomerular Filtration Rate >60 (60-); Glucose, Blood 84 mg/dL (70-99); Potassium, Blood 3.9 mmol/L (3.5-5.5); Sodium, Blood 137 mmol/L (136-145)
[2020-12-30 05:01] LABS: TOTAL CELLS COUNTED 2
--- NOTE | 2020-12-30 06:25 | NUR ---
SUMMARY PT REMAINS A&O X4, VSS, ON RA. HE CONTINUES TO DENY CP/PRESSURE. RIGHT RADIAL SITE WNL. PO NORCO GIVEN FOR BACK PAIN, PT IS TOLERATING PO INTAKE, VOIDING WNL, PT HAD A 2.8 SECOND PAUSE REPORTED BY TELE THROUGH THE NIGHT, ASYMPTOMATIC, HOSPITALIST & ELEVATOR OPERATOR SERVICE NOTIFIED, NO NEW ORDERS.CALL LIGHT IN REACH
[2020-12-30] MEDS ORDERED: AMLO10 PO (15:02)
[2020-12-30] MEDS ORDERED: LISI20 PO (15:03)
[2020-12-30] MEDS ORDERED: FURO20 PO (15:03)
[2020-12-30] MEDS ORDERED: NITR.4SL SL (15:05)
[2020-12-30] MEDS ORDERED: Ventolin/Prove6.7 GM INH (15:09)
[2020-12-30] MEDS ORDERED: LOSA50 PO (16:08)
--- NOTE | 2020-12-30 16:44 | NUR ---
DISCHARGE SUMMARY PT A&Ox4; FORGETFUL AT TIMES. PT RESTING IN BED DUIRNG SHIFT. UP TO SHOWER WITH SBA. PT REPORTS CHRONIC BACK PAIN, MEDICATED PER EMAR. PT DENIES SOB, CHEST PAIN/PRESSURE, NAUSEA AND DIZZINESS. DR MOYER NOTIFIED HTIS AM OF 12.8 SECOND PAUSE DURING CURATOR HORTICULTURAL MUSEUM, DR TO PLACE NEW ORDERS. NO FURTHER EVENTS PER TELE. VS. NO OTHER ACUTE CHANGES NOTED DURING SHIFT. PT AND DAUGHTER EDUCATED ON DISCHARGE INSTRUCTIONS, FOLLOW UP APPOINTMENTS AND MEDICATIONS. PRESCRIPTIONS CALLED/FAXED TO [facility] PER PT REQUEST, PT RECIEVIED BRILLINTA SAMPLES FROM CARDIOLOGY OFFICE AND COUPON SENT HOME. PT LEFT ROOM VIA [employer] AT 1643.
[2020-12-31 12:10] LABS: HEPARIN INDUCED PLATELET AB 0.102 OD (0.000-0.400)
== END 2020-12-30 16:43 | disposition home or self-care (01) | DRG 250 ==
LOC: ER 04:04 → ICUW 04:23 → PCU 18:14
PROVIDERS: Student in an Organized Health Care Education/Training Program; ADMIT Internal Medicine Cardiovascular Disease
PROC: 02713ZZ Dilation of Coronary Artery, Two Arteries, Percutaneous Approach (ICD-10-PCS; principal; 2020-12-28)
PROC: B24BZZ3 Ultrasonography of Heart with Aorta, Intravascular (ICD-10-PCS; 2020-12-28)
DX: I97.190 Other postprocedural cardiac functional disturbances following cardiac surgery (principal); I21.A9 Other myocardial infarction type; T82.867A Thrombosis due to cardiac prosthetic devices, implants and grafts, initial encounter; I47.2 Ventricular tachycardia; B19.20 Unspecified viral hepatitis C without hepatic coma; E78.5 Hyperlipidemia, unspecified; G89.29 Other chronic pain; F17.210 Nicotine dependence, cigarettes, uncomplicated; F10.20 Alcohol dependence, uncomplicated; N18.30 Chronic kidney disease, stage 3 unspecified; I12.9 Hypertensive chronic kidney disease with stage 1 through stage 4 chronic kidney disease, or unspecified chronic kidney disease; F15.10 Other stimulant abuse, uncomplicated; I25.10 Atherosclerotic heart disease of native coronary artery without angina pectoris; J44.9 Chronic obstructive pulmonary disease, unspecified; D69.6 Thrombocytopenia, unspecified; Z95.5 Presence of coronary angioplasty implant and graft; Z79.02 Long term (current) use of antithrombotics/antiplatelets; Z79.82 Long term (current) use of aspirin; Z79.899 Other long term (current) drug therapy; Y83.1 Surgical operation with implant of artificial internal device as the cause of abnormal reaction of the patient, or of later complication, without mention of misadventure at the time of the procedure
CPT/HCPCS: 36415; 71045; 80047; 80048; 80053; 83735; 84484; 85014; 85025; 85027; 85347; 86022; 86850; 86900; 86901; 92920; 92921; 92941; 92978; 93005; 93010; 93308; 93321; 93454; 94640; 94760; 94762; 96374-59; 99152; 99153; 99285-25; A9270; C1725; C1753; C1769; C1887; C1894; J1644; J2250; J2370; J3010; J3246; J7030; J7040; J7050; Q9967

== ENCOUNTER 2021-01-02 00:08 | Inpatient (IN) | payer MEDICARE ==
[~2021-01-02] VITALS: Ht 182.9 cm; Wt 90.7 kg
[~2021-01-02 00:08] MED LIST changes: +LOSA50 PO; +NITR.4SL SL; +Ventolin/Prove6.7 GM INH
[2021-01-02 00:59] LABS: BASOPHILS ABSOLUTE AUTO 0.06 K/mm3 (0.00-0.23); BASOPHILS PERCENT AUTO 0 % (0-2); EOSINOPHILS ABSOLUTE AUTO 0.33 K/mm3 (0.00-0.68); EOSINOPHILS PERCENT AUTO 2 % (0-6); Hematocrit 44.7 % (37.0-53.0); Hemoglobin 14.8 g/dL (13.5-17.5); IMMATURE GRAN ABSOLUTE AUTO 0.08 K/mm3 (0.00-0.10); IMMATURE GRAN PERCENT AUTO 1 % (0-1); LYMPHOCYTES ABSOLUTE AUTO 2.92 K/mm3 (0.84-5.20); LYMPHOCYTES PERCENT AUTO 21 % (21-46); MONOCYTES PERCENT AUTO 5 % (4-13); Mean Corpuscular HGB 31.7 pg (26.0-34.0); Mean Corpuscular HGB Conc 33.1 g/dL (31.5-36.5); Mean Corpuscular Volume 96 fL (80-100); Mean Platelet Volume 9.5 fL (9.1-12.4); NEUTROPHILS ABSOLUTE AUTO 9.57 K/mm3 (1.96-9.15); NEUTROPHILS PERCENT AUTO 70 % (41-73); Platelet Count 206 K/mm3 (150-400); RDW Coefficient Variation 13.7 % (11.7-14.2); RDW Standard Deviation 48.3 fL (35.1-46.3); Red Blood Cell Count 4.67 M/mm3 (4.30-5.90); White Blood Cell Count 13.66 K/mm3 (4.00-11.30)
[2021-01-02 01:25] LABS: Alanine Aminotransfer (ALT/SGP 46 U/L (12-78); Albumin, Blood 3.4 g/dL (3.4-5.0); Albumin/Globulin Ratio 0.8 (0.8-1.8); Alk Phos 98 U/L (50-136); Anion Gap 5 mmol/L (6-16); Aspartate Aminotrans (AST/SGOT 39 U/L (12-37); Bilirubin, Total 0.5 mg/dL (0.1-1.0); Blood Urea Nitrogen 28 mg/dL (8-24); Bun/Creatinine Ratio 22.8 (12.0-20.0); CO2, Blood 27 mmol/L (21-32); Chloride, Blood 103 mmol/L (98-108); Creatinine, Blood 1.23 mg/dL (0.60-1.20); Globulin, Blood 4.2 g/dL (2.2-4.0); Glomerular Filtration Rate >60 (60-); Glucose, Blood 114 mg/dL (70-99); Potassium, Blood 4.5 mmol/L (3.5-5.5); Sodium, Blood 135 mmol/L (136-145); Total Protein, Blood 7.6 g/dL (6.4-8.2)
[2021-01-02 05:44] LABS: BASOPHILS ABSOLUTE AUTO 0.04 K/mm3 (0.00-0.23); BASOPHILS PERCENT AUTO 0 % (0-2); EOSINOPHILS ABSOLUTE AUTO 0.31 K/mm3 (0.00-0.68); EOSINOPHILS PERCENT AUTO 2 % (0-6); Hematocrit 42.2 % (37.0-53.0); Hemoglobin 14.2 g/dL (13.5-17.5); IMMATURE GRAN ABSOLUTE AUTO 0.08 K/mm3 (0.00-0.10); IMMATURE GRAN PERCENT AUTO 1 % (0-1); LYMPHOCYTES ABSOLUTE AUTO 2.62 K/mm3 (0.84-5.20); LYMPHOCYTES PERCENT AUTO 21 % (21-46); MONOCYTES ABSOLUTE AUTO 0.42 K/mm3 (0.16-1.47); MONOCYTES PERCENT AUTO 3 % (4-13); Mean Corpuscular HGB Conc 33.6 g/dL (31.5-36.5); Mean Corpuscular Volume 95 fL (80-100); Mean Platelet Volume 9.2 fL (9.1-12.4); NEUTROPHILS ABSOLUTE AUTO 9.27 K/mm3 (1.96-9.15); NEUTROPHILS PERCENT AUTO 73 % (41-73); Platelet Count 177 K/mm3 (150-400); RDW Coefficient Variation 13.5 % (11.7-14.2); RDW Standard Deviation 47.2 fL (35.1-46.3); Red Blood Cell Count 4.44 M/mm3 (4.30-5.90); White Blood Cell Count 12.74 K/mm3 (4.00-11.30)
--- NOTE | 2021-01-02 06:04 | NUR ---
SHIFT SUMMARY PT ADMITTED FROM DIESEL PLANT OPERATOR - TR BAND R RADIAL SITE. CAME WITH 9CC INFLATED, BEGAN DEFLATION AT 0530 01/02/21. MINIMAL SWELLING, BUT STILL SOFT. VSS. ALERT AND ORIENTED, COOPERATIVE WITH PLAN OF CARE. ABLE TO MAKE NEEDS KNOWN. SATS >90% ON ROOM AIR. TELE NSR. NO C/O CHEST PAIN, BUT DOES C/O CHRONIC BACK PAIN - SEE EMAR. VOIDING TO URINAL, ADEQUATE UOP. NO BM. BEDREST FOR NOW. CALL LIGHT WITHIN REACH, BED IN LOWEST POSITION. WILL CONTINUE TO MONITOR.
[2021-01-02 06:23] LABS: CHOL/HDL RATIO 1.9; Cholesterol 89 mg/dL (50-200); HDL Cholesterol 46 mg/dL (>39); LDL/HDL RATIO 0.7; Low Density Lipoprotein Chol 32 mg/dL (0-110); Triglycerides 56 mg/dL (30-160); Very Low Density Lipoprot Chol 11 mg/dL (6-32)
--- NOTE | 2021-01-02 09:42 | NUR ---
PATIENT ALERT AND ORIENTED X4. ON ROOM AIR SATING MID 90'S. TELE SHOWING SINUS WITH HR 70'S. ONE EPISODE OF CHEST "PRESSURE" THIS AM. PT STATES IT IS NOT PAINFUL BUT UNCOMFORTABLE. MORNING MEDS GIVEN AND MEDICATED PER EMAR AND PRESSURE/PAIN DECREASING. PT STATES HE THINKS THE PAIN IS MORE FROM INDEGESTION. DR. MOYER AWARE AND NEW ORDERS FOR PRILOSEC. TR BAND IN PLACE THIS AM, WITH 5ML OF AIR LEFT. AIR DEFLEATED NOW AND TR BAND REMAINS IN PLACE. WILL REMOVE ONE HOUR POST AIR DEFLATION. GOLF BALL SIZED BRUISING PROXIMAL TO TR BAND. SOFT AND NON TENDER. SCANT AMOUNT OF DRAINAGE REMAINS UNCHANGED. RADIAL PULSES STRONG. ARM BOARD IN PLACE AND POST OP EDUCATION REVIEWED. BRUISING SCATTERED THROUGHOUT. BOWEL TONES HEARD. PT EATING BREAKFAST AND DRINKING FLUIDS. CALL LIGHT IN REACH. WILL CONTINUE TO MONITOR.
--- NOTE | 2021-01-02 10:08 | NUR ---
TR BAND REMOVED. NO DRAINAGE. ARM BOARD IN PLACE. WILL CONTINUE TO MONITOR SITE.
[2021-01-02 10:31] LABS: SARS-Cov-2 (COVID-19) PCR, MMC NEGATIVE (NEGATIVE)
--- NOTE | 2021-01-02 11:09 | NUR ---
Echocardiogram completed.
--- NOTE | 2021-01-02 12:02 | NUR ---
PLAN FOR DISCHARGE LATER THIS AFTERNOON. PT AGREEABLE. DR. MOYER IN TO DISCUSS FUTURE OPTIONS WITH PATIENT AND TREATMENT PLANS. CALL PLACED TO DAUGHTER FOR UPDATE. PT EATING LUNCH. COMPLAINS OF SOME PRESSURE IN CHEST RELATED TO PERICARDITIS. NO CHANGES IN TELE. DR. MOYER AWARE AND TORDAL GIVEN. WILL CONTINUE TO MONITOR.
[2021-01-02] MEDS ORDERED: Nicoderm Cq1 EAC1 TOP (14:48)
[2021-01-02] MEDS ORDERED: COLCRYS0.6 M1 PO (14:50)
[2021-01-02] MEDS ORDERED: IBUP600 PO (14:53)
[2021-01-02] MEDS ORDERED: OMEP20ER PO (14:54)
--- NOTE | 2021-01-02 15:39 | NUR ---
DISCHARGE: NO ACUTE CHANGES, NO NEW EPISODES OF CHEST PAIN. VITAL SIGNS STABLE. PT COMPLAINS OF BACK PAIN, MEDICATED PER EMAR. IV'S TAKEN OUT PER PROTOCOL. DISCHARGE INSTRUCTIONS REVIEWED AND QUESTIONS ANSWERED. DAUGHTER IN TO PICK PATIENT UP. RIGHT RADIAL SIGHT WNL, NO SIGNS OF BLEEDING. REMAINS SOFT AND NON TENDER. NO DRAINAGE UNDER TEGADERM, ARM BOARD IN PLACE. POST RADIAL SIGHT INSTRUCTIONS REVIEWED. PT LEFT UNIT VIA WHEELCHAIR WITH ALL PERSONAL BELONGINGS.
== END 2021-01-02 15:38 | disposition home or self-care (01) | DRG 282 ==
LOC: ER 00:08 → ICUW 01:26
PROVIDERS: Emergency Medicine; ADMIT Internal Medicine Cardiovascular Disease
PROC: 4A023N7 Measurement of Cardiac Sampling and Pressure, Left Heart, Percutaneous Approach (ICD-10-PCS; principal; 2021-01-02)
PROC: B2111ZZ Fluoroscopy of Multiple Coronary Arteries using Low Osmolar Contrast (ICD-10-PCS; 2021-01-02)
PROC: B2151ZZ Fluoroscopy of Left Heart using Low Osmolar Contrast (ICD-10-PCS; 2021-01-02)
DX: I24.1 Dressler's syndrome (principal); I21.19 ST elevation (STEMI) myocardial infarction involving other coronary artery of inferior wall; I95.9 Hypotension, unspecified; Z20.822 Contact with and (suspected) exposure to COVID-19; I25.10 Atherosclerotic heart disease of native coronary artery without angina pectoris; I12.9 Hypertensive chronic kidney disease with stage 1 through stage 4 chronic kidney disease, or unspecified chronic kidney disease; E78.5 Hyperlipidemia, unspecified; N18.30 Chronic kidney disease, stage 3 unspecified; F15.10 Other stimulant abuse, uncomplicated; F10.20 Alcohol dependence, uncomplicated; J44.9 Chronic obstructive pulmonary disease, unspecified; F17.210 Nicotine dependence, cigarettes, uncomplicated; Z71.51 Drug abuse counseling and surveillance of drug abuser; Z71.6 Tobacco abuse counseling; Z79.82 Long term (current) use of aspirin; Z79.899 Other long term (current) drug therapy; Z98.890 Other specified postprocedural states; Z95.5 Presence of coronary angioplasty implant and graft
CPT/HCPCS: 36415; 71045; 76937; 80053; 80061; 83880; 84484; 85025; 85347; 93005; 93010; 93308; 93321; 93458; 93571; 93572; 96374; 96375; 99152; 99153; 99285-25; A9270; C1769; C1887; C1894; J1644; J1885; J2250; J2405; J3010; J7030; J7050; Q9967; U0004

== ENCOUNTER 2021-02-10 00:43 | Emergency (ER) | payer MEDICARE ==
[~2021-02-10] VITALS: Ht 180.3 cm; Wt 97.5 kg
[~2021-02-10 00:43] MED LIST changes: +COLCRYS0.6 M1 PO; +IBUP600 PO; +Nicoderm Cq1 EAC1 TOP; +OMEP20ER PO
[2021-02-10 01:06] LABS: BASOPHILS ABSOLUTE AUTO 0.04 K/mm3 (0.00-0.23); BASOPHILS PERCENT AUTO 0 % (0-2); EOSINOPHILS ABSOLUTE AUTO 0.19 K/mm3 (0.00-0.68); EOSINOPHILS PERCENT AUTO 2 % (0-6); Hematocrit 45.2 % (37.0-53.0); Hemoglobin 15.3 g/dL (13.5-17.5); IMMATURE GRAN ABSOLUTE AUTO 0.03 K/mm3 (0.00-0.10); IMMATURE GRAN PERCENT AUTO 0 % (0-1); LYMPHOCYTES ABSOLUTE AUTO 2.78 K/mm3 (0.84-5.20); LYMPHOCYTES PERCENT AUTO 24 % (21-46); MONOCYTES ABSOLUTE AUTO 0.68 K/mm3 (0.16-1.47); MONOCYTES PERCENT AUTO 6 % (4-13); Mean Corpuscular HGB 32.6 pg (26.0-34.0); Mean Corpuscular HGB Conc 33.8 g/dL (31.5-36.5); Mean Corpuscular Volume 96 fL (80-100); Mean Platelet Volume 8.6 fL (9.1-12.4); NEUTROPHILS ABSOLUTE AUTO 7.88 K/mm3 (1.96-9.15); NEUTROPHILS PERCENT AUTO 68 % (41-73); Platelet Count 212 K/mm3 (150-400); RDW Standard Deviation 50.3 fL (35.1-46.3); Red Blood Cell Count 4.69 M/mm3 (4.30-5.90)
[2021-02-10 01:27] LABS: Albumin, Blood 3.9 g/dL (3.4-5.0); Bilirubin, Total 0.6 mg/dL (0.1-1.0); Bun/Creatinine Ratio 16.9 (12.0-20.0); Creatinine, Blood 1.24 mg/dL (0.60-1.20); Globulin, Blood 3.8 g/dL (2.2-4.0); Total Protein, Blood 7.7 g/dL (6.4-8.2); Troponin I 0.024 ng/mL (0.000-0.040)
== END 2021-02-10 04:55 | disposition home or self-care (01) ==
LOC: ER 00:43
PROVIDERS: Emergency Medicine
DX: R07.89 Other chest pain (principal); R06.02 Shortness of breath; I10 Essential (primary) hypertension; F17.210 Nicotine dependence, cigarettes, uncomplicated; I25.2 Old myocardial infarction; Z79.02 Long term (current) use of antithrombotics/antiplatelets; Z79.899 Other long term (current) drug therapy
CPT/HCPCS: 71045; 80053; 83880; 84484; 85025; 93005; 93010; 99285-25

== ENCOUNTER 2021-10-26 23:20 | Inpatient (IN) | payer MEDICARE ==
[~2021-10-26] VITALS: Ht 180.3 cm; Wt 89.1 kg
[2021-10-27 00:10] LABS: BASOPHILS ABSOLUTE AUTO 0.06 K/mm3 (0.00-0.23); BASOPHILS PERCENT AUTO 1 % (0-2); EOSINOPHILS ABSOLUTE AUTO 0.13 K/mm3 (0.00-0.68); EOSINOPHILS PERCENT AUTO 2 % (0-6); Hematocrit 41.3 % (37.0-53.0); Hemoglobin 14.3 g/dL (13.5-17.5); IMMATURE GRAN ABSOLUTE AUTO 0.02 K/mm3 (0.00-0.10); IMMATURE GRAN PERCENT AUTO 0 % (0-1); LYMPHOCYTES ABSOLUTE AUTO 0.97 K/mm3 (0.84-5.20); LYMPHOCYTES PERCENT AUTO 13 % (21-46); MONOCYTES ABSOLUTE AUTO 0.56 K/mm3 (0.16-1.47); MONOCYTES PERCENT AUTO 7 % (4-13); Mean Corpuscular HGB 33.1 pg (26.0-34.0); Mean Corpuscular HGB Conc 34.6 g/dL (31.5-36.5); Mean Corpuscular Volume 96 fL (80-100); Mean Platelet Volume 9.1 fL (9.1-12.4); NEUTROPHILS ABSOLUTE AUTO 5.82 K/mm3 (1.96-9.15); NEUTROPHILS PERCENT AUTO 77 % (41-73); Platelet Count 133 K/mm3 (150-400); RDW Coefficient Variation 14.3 % (11.7-14.2); Red Blood Cell Count 4.32 M/mm3 (4.30-5.90); White Blood Cell Count 7.56 K/mm3 (4.00-11.30)
[2021-10-27 00:24] LABS: Alanine Aminotransfer (ALT/SGP 181 U/L (12-78); Albumin/Globulin Ratio 1.1 (0.8-1.8); Alk Phos 83 U/L (50-136); Anion Gap 11 mmol/L (6-16); Aspartate Aminotrans (AST/SGOT 189 U/L (12-37); Bilirubin, Total 0.5 mg/dL (0.1-1.0); Blood Urea Nitrogen 21 mg/dL (8-24); Bun/Creatinine Ratio 19.1 (12.0-20.0); CO2, Blood 26 mmol/L (21-32); Calcium, Blood 9.1 mg/dL (8.5-10.1); Chloride, Blood 96 mmol/L (98-108); Globulin, Blood 3.8 g/dL (2.2-4.0); Glomerular Filtration Rate >60 (60-); Glucose, Blood 103 mg/dL (70-99); Potassium, Blood 3.3 mmol/L (3.5-5.5); Sodium, Blood 133 mmol/L (136-145); Total Protein, Blood 7.8 g/dL (6.4-8.2)
[2021-10-27] MEDS ORDERED: ATEN25 (02:25)
[2021-10-27] MEDS ORDERED: Clotrimazole-Be15 GM (02:25)
[2021-10-27] MEDS ORDERED: FUROSEMIDE20 MG PO (02:25)
[2021-10-27] MEDS ORDERED: POTASSIUM CITR10 ME2 PO (02:25)
[2021-10-27] MEDS ORDERED: ISOSORBIDE MONO30 MG PO (02:25)
[2021-10-27] MEDS ORDERED: BRILINTA90 M7 PO (02:25)
[2021-10-27] MEDS ORDERED: OMEP20ER PO ×2 (02:25→05:05)
[2021-10-27] MEDS ORDERED: ASPI81CH PO (05:04)
[2021-10-27] MEDS ORDERED: FURO20 PO (05:04)
[2021-10-27] MEDS ORDERED: POTA10T PO (05:04)
[2021-10-27] MEDS ORDERED: TICA90TA PO (05:04)
[2021-10-27] MEDS ORDERED: Isosorbide Mono30 MG PO (05:05)
[2021-10-27] MEDS ORDERED: ATEN50 PO (05:05)
--- NOTE | 2021-10-27 11:57 | NUR ---
CARE ASSUMPTION/ARRIVAL TO PCU PATIENT ARRIVED TO PCU FROM THE ED VIA GURNEY. PATIENT TRANSFERED TO PCU BED VIA SLIDER SHEET. PATIENT IS LETHARGIC AND ALERT TO SELF UPON ARRIVAL. PERSARY. PATIENT DID NOT KNOW THE YEAR, OR WHY HE WAS HERE AT THE HOSPITAL. THIS RN PROVIDED EDUCATION TO THE PATIENT. VSS. TELE SR. PATIENT LUNG SOUNDS EXPIRATORY WHEEZE UPPER AND LOWER LOBES. SPO2 >90% ON 2L NC. PATIENT ABD SOFT NONTENDER. PATIENT HAS BRUSING ON THE LEFT SIDE BOTTOM, AND LEFT ABD PHOTO IN THE CHART. PATIENT HAS REDDNESS TO BOTTOM, PICTURES IN CHART. REPOSITIONING EVERY TWO HOURS TO PREVENT SKIN BREAKDOWN. SEE SHIFT ASSESSMENT FOR FULL DETAILS. PATIENT CIWA SCORE WAS 8 UPON ARRIVAL. MOST RECENT CIWA SCORE WAS 9. PATIENT REPORTED OF BACK PAIN AND RECEIVED PAIN MED PER EMAR. COMPLETED ADMIT INFO WITH PATIENTS DAUGHTER SINCE PATIENT UNABLE TO PRPVIDE RESPONSES. PATIENT HAS A NICOTINE PATCH PLACED TO RIGHT SHOULDER. BED ALARM ON AND BED IN LOWEST POSITION. WILL CONTINUE TO MONITOR AND PROVIDE CARE.
--- NOTE | 2021-10-27 17:42 | NUR ---
SHIFT SUMMARY PATIENT IS LETHARGIC TO ALERT AT TIMES. AND ORIENTED TO SELF, PLACE, AND SURROUDINGS. PATIENT HAS MOMENTS OF CONFUSION AND FORGETFULNESS AMD WILL TRY TO GET OUT OF BED. BED ALARM IS ON. PATIENT HAS URGENCY WITH URINATION AND THAT IS WHEN PATIENT WILL TRY TO GET OUT OF BED. THIS RN PROVIDED EDUCATION TO THE PATIENT SHIFT SUPERINTENDENT LIGHT AND NOT GETTING OUT OF BED WITHOUT ASSISTANCE. PATIENT CIWA SCORES RANGE FROM 8-11. PATIENT IS TREMULOUS. PATIENT HAS GOOD FAMILY SUPPORT SYSTEM, SPOKE WITH BOTH DAUGHTER AND SON. PATIENT HAS FAMILY AT BEDSIDE CURRENTLY. NO ACUTE CHANGES. CALL LIGHT WITHIN REACH AND BED IN LOWEST POSITION WITH BED ALARM ON. WILL CONTINUE TO MONITOR AND PROVIDE CARE UTNIL HAND OFF WITH NEXT SHIFT.
--- NOTE | 2021-10-27 21:17 | NUR ---
CARE ASSUMPTION: PATIENT IN BED RECEIVING BREATHING TREATMENT. AUDIBLE WHEEZING NOTED. PATIENT ORIENTED TO SELF AND PLACE. VISIBLE TREMORS AND MILD SWEATING. CIWA 11. BED LOW AND ALARM ON.
--- NOTE | 2021-10-27 22:25 | NUR ---
UPDATE: PATIENT'S TREMORS AND CONFUSION INCREASED. MEDICATED PER EMAR. PATIENT'S DAUGHTER CALLED AT 2210 AND WAS UPDATED ON CURRENT STATUS AND TREATMENT PLAN.
[2021-10-28 05:27] LABS: BASOPHILS ABSOLUTE AUTO 0.03 K/mm3 (0.00-0.23); BASOPHILS PERCENT AUTO 1 % (0-2); EOSINOPHILS ABSOLUTE AUTO 0.18 K/mm3 (0.00-0.68); EOSINOPHILS PERCENT AUTO 4 % (0-6); Hematocrit 40.7 % (37.0-53.0); Hemoglobin 13.7 g/dL (13.5-17.5); IMMATURE GRAN ABSOLUTE AUTO 0.01 K/mm3 (0.00-0.10); IMMATURE GRAN PERCENT AUTO 0 % (0-1); LYMPHOCYTES ABSOLUTE AUTO 1.21 K/mm3 (0.84-5.20); LYMPHOCYTES PERCENT AUTO 25 % (21-46); MONOCYTES ABSOLUTE AUTO 0.38 K/mm3 (0.16-1.47); MONOCYTES PERCENT AUTO 8 % (4-13); Mean Corpuscular HGB 33.4 pg (26.0-34.0); Mean Corpuscular HGB Conc 33.7 g/dL (31.5-36.5); Mean Corpuscular Volume 99 fL (80-100); NEUTROPHILS ABSOLUTE AUTO 3.08 K/mm3 (1.96-9.15); NEUTROPHILS PERCENT AUTO 63 % (41-73); Platelet Count 95 K/mm3 (150-400); RDW Coefficient Variation 14.8 % (11.7-14.2); RDW Standard Deviation 53.8 fL (35.1-46.3); White Blood Cell Count 4.89 K/mm3 (4.00-11.30)
--- NOTE | 2021-10-28 05:50 | NUR ---
SHIFT SUMMARY: PATIENT'S CIWAS HAVE BEEN 11-16. MEDICATED PER EMAR. PATIENT A&O X2 (SELF AND PLACE). PATIENT VERY PAINFUL FROM CHRONIC BACK PAIN - MEDICATED PER EMAR. ATIVAN HAS HELPED PATIENT REST. PATIENT WAS IN RECLINER FOR A COUPLE HOURS WHICH ALIEVED SOME BACK PAIN. HE WAS A 1 PERSON ASSIST WITH GAIT BELT TO RECLINER, BUT REQUIRED TWO PEOPLE WITH GAIT BELT TO RETURN TO BED HIS TREMORS INCREASED. PATIENT ON CAMERA HE DOES TRY TO GET OOB - BED ALARM IS ALSO SET. PATIENT KEEPS LOOKING FOR/ASKING ABOUT HIS PHONE. PER DAUGHTER HIS PHONE IS WITH HIS COUSIN AND THE FAMILY WILL BRING IT IN TODAY. WILL CONTINUE TO MONITOR AND REPORT TO ONCOMING RN.
[2021-10-28 05:59] LABS: Alanine Aminotransfer (ALT/SGP 122 U/L (12-78); Albumin, Blood 3.4 g/dL (3.4-5.0); Albumin/Globulin Ratio 0.9 (0.8-1.8); Alk Phos 56 U/L (50-136); Anion Gap 7 mmol/L (6-16); Aspartate Aminotrans (AST/SGOT 104 U/L (12-37); Bilirubin, Total 0.7 mg/dL (0.1-1.0); Blood Urea Nitrogen 14 mg/dL (8-24); Bun/Creatinine Ratio 17.1 (12.0-20.0); CO2, Blood 28 mmol/L (21-32); Chloride, Blood 102 mmol/L (98-108); Creatinine, Blood 0.82 mg/dL (0.60-1.20); Globulin, Blood 3.6 g/dL (2.2-4.0); Glomerular Filtration Rate >60 (60-); Glucose, Blood 88 mg/dL (70-99); Potassium, Blood 3.5 mmol/L (3.5-5.5); Sodium, Blood 137 mmol/L (136-145)
--- NOTE | 2021-10-28 17:55 | NUR ---
ASSUMED CARE OF PT AT 0700 TODAY. PT CONFUSED AND AGITATED T/O THE SHIFT TODAY WITH CIWA SCORE OF 20 ON ASSESSMENT. MEDICATED PER EMAR, DR MARIE MADE AWARE OF PT'S CIWA SCORE AND USE OF ATIVAN/LIBRIUM PER MD ORDERS. PT PLACED IN GLO VEST FOR SAFETY D/T TO PT ATTEMPTING TO CLIMB OUT OF BED, PULLING OFF LINES AND TUBES. SEE DOCUMENTED CIWA SCORES AND RESTRAINT REASSESSMENT DOCUMENTATION. PT'S SON AND DTR CAME TO BEDSIDE TO VISIT THIS AFTERNOON. BY THE END OF THE SHIFT, PT HAS MAXED OUT ON ATIVAN AND IS NEARLY MAXED OUT ON LIBRIUM. MD NOTIFIED, ICU CHARGE NURSE NOTIFIED OF LIKELY NEED FOR TRANSFER.
--- NOTE | 2021-10-28 20:06 | NUR ---
TRANSFER TO ICU 15 1899 RECEIVED REPORT FROM MARCELA AYALA. ORDERS TO TRANSFER TO ICU ON PRECEDEX GTT FOR INCREASED ETOH W/DRAWAL AND ATIVAN MAXIMUM DOSING. NO BED AVAILABLE IN ICU AT THAT TIME. THIS RN, STARTED PRECEDEX GTT AY 0.3MCG DUE TO PATIENTS INCREASINGLY UNSAFE STATE WITH AGITATION AND IMPULSIVENESS DESPITE BEING IN GLO VEST AND ON CAMERA. HR 110'S, UNCHANGED. PT HYPERTENSIVE, LOWERED TO NORMOTENSIVE READINGS POST PRECEDEX INITIATION. PT MUCH LESS AGITATED NOW. RESTING QUIETELY IN BED. 2008 REPORT GIVEN TO [facility] FORESTRY EXTENSION SPECIALIST. PT TRANSFERRING TO ICU 15. VSS. PRECEDEX INFUSING STILL AT 0.3MCG. CALM AND QUIET CURRENTLY.
--- NOTE | 2021-10-28 20:15 | NUR ---
PT REPORT RECEIVED. PT MOVED TO ICU BED. ASSUMED PT CARE. PT IS VERY DROWSY, IS AROUSABLE TO VOICE AND IS DISSORIENTED X4. PT MOVES ALL EXTREMETIES AND IS IMPULSIVE.
--- NOTE | 2021-10-29 06:33 | NUR ---
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 PT HAS RECEIVED TOTAL OF 10 MG IV ATIVAN. PT NOT ABLE TO CONSISTANTLY TAKE PO MEDICATIONS BUT SEEMS TO TOLLERATED WELL WHEN VERY AWAKE. PO THIAMINE AND FOLIC ACID WERE CHANGED TO IV. PT REMAINS IN THE GLO WAIST RESTRAINT DUE TO HIS CONTINUED IMPULSIVE BEHAVIOUR. PT WAS ABLE TO TAKE 50 MG OF LIBRIUM AND IS TOLLERATING 0.5 MCG/KG/HR.
--- NOTE | 2021-10-29 08:45 | NUR ---
PT IS RESTLESS/AGITATED. MUMBLES. UNABLE TO STATE YEAR OR MONTH. UNABLE TO STATE NAME. CONSTANTLY TRYING TO GET OOB AND NOT ABLE TO REDIRECT. ATIVAN GIVEN. SEE CIWA. PT IS ON PRECEDEX GTT SEE FLOWSHEET.
--- NOTE | 2021-10-29 17:53 | NUR ---
SUMMARY PT RESTING IN BED. SEDATED WITH PRECEDEX. ATIVAN GIVEN PER CIWA T/O THE DAY. PT MUMBLES WHEN ASKED QUESTIONS. NO CLEAR CONVERSATION. WILL WAKE TREMULOUS AND AGITATED. PT IS NOT REDIRECTABLE AND IS CLIMBING OVER THE BED RAIL. STARTED ON TPN TODAY DUE TO INABILITY TO TAKE PO. INCONT IN ATTENDS, UNABLE TO GET PT TO USE URINAL. NO OTHER CHANGES.
--- NOTE | 2021-10-29 19:13 | NUR ---
1900- PT ATTEMPTING TO EXIT BED AND IS ONLY ORIENTED TO SELF. CIWA 23 WITH PRECEDEX RUNNING AT 0.5. ATIVAN 4 MG GIVEN. SAFETY CHECK COMPLETED, ASSUMED PT CARE.
[2021-10-30 03:24] LABS: BASOPHILS ABSOLUTE AUTO 0.03 K/mm3 (0.00-0.23); BASOPHILS PERCENT AUTO 1 % (0-2); EOSINOPHILS ABSOLUTE AUTO 0.14 K/mm3 (0.00-0.68); EOSINOPHILS PERCENT AUTO 3 % (0-6); Hematocrit 41.1 % (37.0-53.0); IMMATURE GRAN ABSOLUTE AUTO 0.02 K/mm3 (0.00-0.10); IMMATURE GRAN PERCENT AUTO 0 % (0-1); LYMPHOCYTES ABSOLUTE AUTO 0.75 K/mm3 (0.84-5.20); LYMPHOCYTES PERCENT AUTO 14 % (21-46); MONOCYTES ABSOLUTE AUTO 0.32 K/mm3 (0.16-1.47); MONOCYTES PERCENT AUTO 6 % (4-13); Mean Corpuscular HGB 33.7 pg (26.0-34.0); Mean Corpuscular HGB Conc 34.1 g/dL (31.5-36.5); Mean Corpuscular Volume 99 fL (80-100); Mean Platelet Volume 9.3 fL (9.1-12.4); NEUTROPHILS PERCENT AUTO 76 % (41-73); Platelet Count 87 K/mm3 (150-400); RDW Coefficient Variation 14.1 % (11.7-14.2); RDW Standard Deviation 51.8 fL (35.1-46.3); Red Blood Cell Count 4.16 M/mm3 (4.30-5.90); White Blood Cell Count 5.36 K/mm3 (4.00-11.30)
[2021-10-30 03:39] LABS: Albumin, Blood 3.1 g/dL (3.4-5.0); Anion Gap 7 mmol/L (6-16); Blood Urea Nitrogen 12 mg/dL (8-24); Bun/Creatinine Ratio 18.3 (12.0-20.0); CO2, Blood 28 mmol/L (21-32); Calcium, Blood 9.5 mg/dL (8.5-10.1); Chloride, Blood 103 mmol/L (98-108); Creatinine, Blood 0.66 mg/dL (0.60-1.20); Glomerular Filtration Rate >60 (60-); Glucose, Blood 151 mg/dL (70-99); Magnesium, Blood 1.8 mg/dL (1.6-2.4); Phosphorus, Blood 2.2 mg/dL (2.5-4.9); Potassium, Blood 3.6 mmol/L (3.5-5.5); Sodium, Blood 138 mmol/L (136-145); Triglycerides 148 mg/dL (30-160)
--- NOTE | 2021-10-30 05:40 | NUR ---
PT INITIALLY ORIENTED TO SELF ONLY THEN BECAME MORE AGITATED AND CONFUSED. PT GIVEN ATIVAN 4 MG X3 FOR CIWA'S OF 18-25, THEN THE HOSPITALIST WAS CONSULTED FOR FURTHUUR DIRECTION. OK RECEIVED FROM DR. FLORES TO TITRATE PRECEDEX TO 1.4 AND TO GIVE PHENOBARBATOL 130 MG IF NOT EFFECTIVE. PT DID REQUIRE MAX DOSE OF PRECEDEX AND WAS STILL AGITATED AND REP[EATEDLY TRYING TO EXIT THE BED SO PHENOBARBATOL 130MG WAS GIVEN. PT BCAME MUCH MORE CALM AFTER THIS AND THE PRECEDEX WAS TITRATED DOWN TO 0.8 MCG/KG/HR. PT IS COMPLETELY DISSORIENTED AT THIS TIME BUT IS MUCH MORE CALM. A CONDOM CATH WAS PLACED AT THE START OF SHIFT AND THE PT VOIDED MORE THAN 18OO ML.
--- NOTE | 2021-10-30 08:15 | NUR ---
Dr Morrison in to see patient. Discussed pt's ativan and precedex requirements, including that pt got 24 mg ativan during overnight caregiver. Discussed that pt got one dose of phenobarbital last night. Discussed pt's BP trend. Provider plans to write for additional phenobarbital if needed.
--- NOTE | 2021-10-30 08:18 | NUR ---
Escalated restraints to vest and SWB because patient removing breathing tx and pulling at IV lines repeatedly despite education and redirection.
--- NOTE | 2021-10-30 08:25 | NUR ---
AM NOTE: ASSUMED CARE OF PT AT 0700. PT ASLEEP AMD RESTING IN BED WHEN I ENTERED THE FLOOR. RT AT BEDSIDE AT 0730 TO ADMINISTER A BREATHING TREATMENT; AT THIS TIME PT BECAME AGGITATED AND ATTEMPTED TO PULL AT MASK, LINES AND TUBES. SWR WERE APPLIED TO PREVENT LINES OR TUBES FROM BEING PULLED. VITAL SIGNS ARE STABLE WITH HR 86, SBP 130-140, TEMP AT 99.3 AND SLIGHTLY TACHYPNENIC WITH RR AT 22. PT REMAINS CONFUSED WITH SLURRED SPEECH; PT WAS ABLE TO OPEN EYES WHEN ASKED; EYES PERRLA. PT RESPONDS TO VERBAL AND PAIN STIMULI DURING PT CARE. BED BATH CONDUCTED THIS AM DUE TO CONDOM CATHETER BECOMING DE-ATTACHED; FULL BED CHANGED COMPLETED. WARM BLANKETS WERE APPLIED AND CALL LIGHT IN REACH. CIWA SCORES REEVALUATED THIS AM AND PT IS SCORING AT 7. WILL CONTINUE TO MONITOR THROUGHOUT THE DAY.
--- NOTE | 2021-10-30 09:55 | NUR ---
18 GA IV removed from L forearm due to leaking. 18 GA IV inserted to L antecubital. Dressed with tegaderm. 20 GA IV inserted to R hand. Dressed with tegaderm. Existing 20 GA IV to R forearm assessment WNL, infusing thiamine at this time.
--- NOTE | 2021-10-30 10:11 | NUR ---
Patient has been calm and has not required any IV push medications. Precedex paused to assess neuro status. Pt became more agitated, but was not able to answer questions or follow commands. Precedex restarted. Currently at 0.8 mcg/kg/hr.
--- NOTE | 2021-10-30 12:25 | NUR ---
Pt's daughter, Mckenna, called unit for update. Pt's son Jack in to see patient. Inquired about pt's alcohol intake with both family members and they both stated that pt drinks 1/2 gallon of vodka per day. Jack details "he was starting to cut back on his drinking, he didn't even quit cold turkey, and here we are".
--- NOTE | 2021-10-30 15:38 | NUR ---
AFTERNOON UPDATE: PT HAS BEEN MOSTLY COMFORTABLE THIS AFTERNOON. PTS AGGITATION WORSENED FROM THIS MORNING, SO PRECEDEX WAS TITRATED UP TO 1.4 MCG/KG/HR WITH ADJUCT DOSES OF ATIVAN ADMINISTERED PER EMAR. PT HAS TOLERATED REPOSITIONING AND PT CARE THIS SHIFT. PT HR HAS BEEN IN THE 80'S, O2 94< ON RA, AND RR AT 22; IN THE 1500 HOUR, SBP REACHED THE 180'S AND PT MEDICATED PER EMAR. PT IS NOW RECIEVING A BREATHING TREATMENT BY RT AND IS TOLERATING IT WELL COMPARED TO THIS AM WHEN HE FOUGHT AGAINST IT. AT THE 1400 HOUR, PT WAS ABLE TO TELL ME HIS NAME BUT WAS NOT ABLE TO GIVE ANY OTHER CREDIBLE INFORMATION. WILL CONTINUE TO MONITOR.
--- NOTE | 2021-10-30 18:00 | NUR ---
SHIFT SUMMARY: PT CONTINUES TO BE CONFUSED AND DISORIENTED THROUGHOUT THE SHIFT. PT HAD AN INSTANCE WHERE HE WAS ABLE TO FOLLOW COMMANDS AND RELAY HIS NAME TO THIS RN BUT WAS NOT ABLE TO RECALL OTHER CREDIBLE INFORMATION. PT BECAME INCREASINGLY AGGITATED THE MORNING PROGRESSED AND PRECEDEX TITRATED UP TO 1.4 MCG/KG/HR TO KEEP PT COMFORTABLE. PRN ATIVAN 2 MG ADMINISTERED TO PT TWO TIMES THIS SHIFT. LACTATED RINGERS DISCONTINUED THIS SHIFT. NEW BAG OF PPN HUNG AT 1734. CURRENTLY THERE IS A CONDOM CATHETER IN PLACE THAT IS PATENT AND DRAINING TO GRAVITY; 1775 URINE OUTPUT THIS SHIFT. PT TEMPERATURES FLUCTUATING FROM 98-99. CIWA SCORES REMAINED BETWEEN 7-10 DEPENDING ON OCCURANCE OF REPOSITIONING OR PT CARE; THESE ACTIONS SEEMED TO INCREASE THE AGGITATION LEVEL OF THE PT. PT'S SON VISITED EARLIER IN THE AFTERNOON IN THE 1100 HOUR AND WAS UPDATED; DAUGHTER CALLED THIS SHIFT AND UPDATED WELL. VITALS SIGNS STABLE AT THIS TIME WITH HR IN THE 80'S, 02 94<, SBP 130'S AND TEMP AT 98.3. WILL CONTINUE TO MONITOR UNTIL SHIFT REPORT GIVEN TO ONCOMING PEWTER CASTER RN.
--- NOTE | 2021-10-30 20:00 | NUR ---
ASSUMED CARE OF PT AT 1915. REPORT RECEIVED. PT PRESENTS IN BED. SOFT WRIST RESTRAINTS AND GLO VEST IN PLACE. PT DOES MUMBLE WHICH IS NON-UNDERSTANDABLE. PT CONTINUES ON ROOM AIR WITH SATURATIONS 90-92. OCCASSIONAL COUGH. EXPIRATORY WHEEZES AUDIBLE. PRECEDEX DRIP AT 1.4 MCG'S. PT DOES RESPOND TO HIS NAME BEING SAID, THOUGH IS NOT ABLE TO ANSWER ANY QUESTIONS OR FOLLOW DIRECTIONS. WILL REVIEW CHART AND PLAN OF CARE FOR THIS PT.
--- NOTE | 2021-10-31 02:26 | NUR ---
HAVE MEDICATED PT WITH 2 MG ATIVAN SEVERAL TIMES FOR INCREASING AGITATION AND RESTLESSNESS. NOT ABLE TO FOLLOW COMMANDS. AGAIN ONLY MUMBLES AND GRUNTS. HIS LEGS HAVE BEEN VERY ACTIVE IN BED. HAVE PLACED PILLOWS IN POSITION TO PROTECT HIS LEGS FROM HITTING AGAINST RAILINGS. PRECEDEX REMAINS AT 1.4 MCG'S HAVE NOT BEEN ABLE TO REDUCE RATE AT THIS TIME. WILL CONTINUE TO MONITOR PT.
--- NOTE | 2021-10-31 08:41 | NUR ---
DR MARIE ROUNDED, RESTRAINT ORDER IN, POTASSIUM INFUSING, FOR SEDATION AND TO TITRATE OFF THE PRECEDEX, DR MARIE WANTS TO TRY THE PHENOBARBATOL, PATIENT REPNDS TO VOICE, DOES NOT FOLLOW DIRECTION, MOAN AND GARBLED SPEECH, RESTLESS MOVEMENTS AT TIMES, RESTING CALMLY NOW, WCTM
--- NOTE | 2021-10-31 12:05 | NUR ---
second pg placed on left upper arm, patient tolerated with ease, repositioned and oral care
--- NOTE | 2021-10-31 15:48 | NUR ---
DR MARIE ROUNDED, REPORTED PRECEDEX GTT AT 06 MCG, MEDICATED WITH PHENOBARBITAL AND USING ATIVAN MORE TO TITRATE PATIENT OFF THE PRECEDEX GTT
--- NOTE | 2021-10-31 18:07 | NUR ---
PATIENT UNABLE TO MAKE NEEDS KNOWN, MUMMBLES INCOHERENTLY, RAISES EYES TO VOICE, NOT ANSWERING YES OR NO QUESTION, TITRATING PRECEDEX OFF NOW AT 0.2 MCG, PER DR MARIE USE THE ATIVAN AND PHENOBARBITAL. NOT IMPULSIVE, NOT PULLING AGAINST RESTRAINTS. SATS 95% ON RA, INCREASED COUGH, LOOSENING, PULLS AWAY FROM ORAL CARE. LS DIMISHED WHEEZES ON THE LEFT LOBE, RIGHT LOBE DIMINISHED. HEART RATE 80-100, SR OR ST. NPO, PPN INFUSING, BAG AND TUBING CHANGED TODAY. CONDOM CATH IN PLACE, OUT PUT 900+ CLEAR YELLOW URINE. BED BATH AND SHEETS CHANGED TODAY, LEFT HIP BRUISE PURPLE, BACK AND COCCYX SKIN INTACT. POOR PULSES ON LEFT FOOT, EXTREMITIES ELEVATED ON PILLOW, DAUGHTER AND SON CHECKED IN ON PATIENT TODAY, WILL RELAY TO PM RN, ISAIAS
--- NOTE | 2021-10-31 20:00 | NUR ---
ASSUMED CARE OF PT AT 1915. REPORT RECEIVED AT BEDSIDE. PT PRESENTS IN BED. DOES OPEN EYES TO HIS NAME BEING SAID, AND WITH TACTILE STIMULI. PT MUMBLES INCORHERENT SPEECH. PT IN NO APPARENT DISTRESS AT THIS TIME. PRECEDEX DRIP CONTINUES AT 0.2 MCG'S. WILL REVIEW CHART AND PLAN OF CARE FOR THIS PT.
--- NOTE | 2021-10-31 22:45 | NUR ---
CONDOM CATHETER COMES OFF. NEW MEDIUM CONDOM CATHETER PLACED. PENILE SKIN REMAINS INTACT WITHOUT ISSUES. PT VOIDS YELLOW URINE, Q.S. PT MEDICATED WITH PHENOBARBITOL FOR INCREASING S/S WITHDRAWLS. WILL CONTINUE TO MONITOR.
--- NOTE | 2021-11-01 01:45 | NUR ---
HAVE MEDICATED PT WITH ATIVAN PRN FOR WITHDRAWALS. GOOD RESULTS NOTED. HAVE TURNED PT EXCEPT FOR WHEN HE HAS REPOSITIONED HIMSELF. WILL ASSIST NEEDED. NO S/S DISTRESS NOTED. HAS HAD SOMEWHAT ELEVATED HEART RATE IN 120'S WITH THE PRECEDEX BEING LOWER. HAS MOIST NONPRODUCTIVE COUGH. HAVE DONE GOOD ORAL CARE FOR PT. DOES AVOID ORAL CARE WHEN BEING DONE WITH MOVING HEAD ABOUT. WILL CONTINUE TO MONITOR PT. SOFT WRIST RESTRAINTS REMAIN IN USE WELL GLO VEST FOR PT'S SAFETY.
[2021-11-01 04:12] LABS: Hematocrit 42.3 % (37.0-53.0); Mean Corpuscular HGB 33.1 pg (26.0-34.0); Mean Corpuscular HGB Conc 33.1 g/dL (31.5-36.5); Mean Corpuscular Volume 100 fL (80-100); Mean Platelet Volume 9.5 fL (9.1-12.4); Platelet Count 149 K/mm3 (150-400); RDW Coefficient Variation 14.6 % (11.7-14.2); Red Blood Cell Count 4.23 M/mm3 (4.30-5.90); White Blood Cell Count 6.97 K/mm3 (4.00-11.30)
[2021-11-01 04:26] LABS: Anion Gap 7 mmol/L (6-16); Blood Urea Nitrogen 19 mg/dL (8-24); Bun/Creatinine Ratio 24.6 (12.0-20.0); CO2, Blood 26 mmol/L (21-32); Calcium, Blood 9.5 mg/dL (8.5-10.1); Chloride, Blood 104 mmol/L (98-108); Creatinine, Blood 0.77 mg/dL (0.60-1.20); Glomerular Filtration Rate >60 (60-); Glucose, Blood 109 mg/dL (70-99); Phosphorus, Blood 2.9 mg/dL (2.5-4.9); Potassium, Blood 3.8 mmol/L (3.5-5.5); Sodium, Blood 137 mmol/L (136-145)
--- NOTE | 2021-11-01 06:30 | NUR ---
PT HAS BEEN INCONTINENT TO STOOL THIS NIGHT. HAVE BEEN ABLE TO PLACE PRECEDEX TO STANDBY. HAVE REMOVED GLO VEST AT THIS TIME. PT CONTINUES TO MUMBLE THOUGH HAS BEEN ABLE TO STATE IT WAS OCTOBER, AND THAT HE WAS AT [facility]. HAVE MEDICATED PT WITH LORAZEPAM FOR INCREASE CIWA SCORING. WILL CONTINUE TO MONITOR PT, AND WILL REPORT TO ONCOMING RN.
--- NOTE | 2021-11-01 07:05 | NUR ---
ASSUMPTION OF CARE RECEIVED REPORT FROM KASH AYALA. ASSUMED CARE OF PATIENT. PATIENT IN BED, RESPONDED TO VERBAL STIMULI. GARBLED SPEECH BUT ATTEMPTING TO ANSWER QUESTIONS. WEAKLY SHIFTING SELF IN BED, CALM AT THIS TIME. PPN INFUSING. CONDOM CATH IN PLACE. WILL REVIEW ORDERS AND TREAT PRESCRIBED.
--- NOTE | 2021-11-01 08:07 | NUR ---
PHYSICIAN COMMUNICATION DR. MARIE ROUNDED. COMMUNICATED PATIENTS HEART RATE, BLOOD PRESSURE, LUNG SOUNDS, PRODUCTIVE COUGH AND TEMPERATURE. RT TO ROOM GIVING BREATHING TREATMENT. WILL AWAIT FURTHER ORDERS AND TREATMENTS.
--- NOTE | 2021-11-01 12:29 | NUR ---
HEART RATE REPORTED HEART RATE 130-140'S TO DR. MARIE. RECEIVED NEW ORDERS, WILL TREAT PRESCRIBED.
--- NOTE | 2021-11-01 18:44 | NUR ---
SHIFT SUMMARY PATIENT ALERT, ORIENTED TO PLACE WITH INTERMITTENT CONFUSION. RESTRAINTS REMOVED CHARTED. PRECEDEX OFF THROUGH SHIFT. TACHYCARDIA AND HYPERTENSION NOTED. MEDICATIONS CHANGED AND ADMINISTERED. ATIVAN GIVEN FOR CIWA SCORES. IV TO LEFT FA REMOVED AFTER REDDNESS NOTED. POWER GLIDE PLACED TO RUE AFTER PIV IN LFA REMOVED. PPN CONTINUES. PRECEDEX RESTARTED AT 1845 AT 0.2MCG/KG. WILL REPORT TO ONCOMING RN.
--- NOTE | 2021-11-01 20:00 | NUR ---
AASSUMED CARE RECEIVED REPORT FROM LUCY DUBON AT 1900. PT RESPONDS TO VOICE AND STATES HE IS IN THE [place]OSP[place], DOES NOT FOLLOW COMMANDS TO HELP WITH TURNS, BUT WILL ATTEMPT TO OPEN EYES WHEN ASKED. CIWA DONE WITH SCORE OF 14, MEDICATED WITH PRN ATIVAN. PRECEDEX INCREASED TO 0.4 MCG/KG/HR TO HELP WITH AGITATION. TEMP OF 99.2. 2L NC PLACED TO IMPROVE SPO2 FROM 92 TO 96%, LUNGS ARE COARSE IN UPPER LOBES WITH EXPIRATORY WHEEZE THROUGHOUT, RR IN 20'S. RT ADMINISTERED NEB TREATMENT. HR IS ST WITH RATE IN 100'S, BP HYPERTENSIVE DESPITE ADMIN OF CLONIDINE, LABETALOL, AND HYDRALAZINE, SBP IN 140'S. UNABLE TO GIVE PO MEDS DUE TO INABILITY TO STAY ALERT AND FOLLOW DIRECTIONS. ATTENDS CHANGED FOR INCONTINENT URINE, PARTIAL BED BATH GIVEN. PG TO RIGHT AND LEFT UPPER ARMS, PPN INFUSING AT 105ML/HR. HE HAS EXTENSIVE BRUISING, MAINLY ON LEFT SIDE OF BODY, FROM FALL AT HOME. ORDERS REVIEWED, WILL TREAT PRESCRIBED.
[2021-11-02 03:53] LABS: Hemoglobin 14.3 g/dL (13.5-17.5); Mean Corpuscular HGB 33.3 pg (26.0-34.0); Mean Corpuscular HGB Conc 33.3 g/dL (31.5-36.5); Mean Corpuscular Volume 100 fL (80-100); Mean Platelet Volume 9.1 fL (9.1-12.4); Platelet Count 174 K/mm3 (150-400); RDW Coefficient Variation 14.2 % (11.7-14.2); RDW Standard Deviation 51.8 fL (35.1-46.3); White Blood Cell Count 6.96 K/mm3 (4.00-11.30)
[2021-11-02 04:13] LABS: Anion Gap 2 mmol/L (6-16); Blood Urea Nitrogen 22 mg/dL (8-24); Bun/Creatinine Ratio 30.8 (12.0-20.0); CO2, Blood 29 mmol/L (21-32); Calcium, Blood 9.5 mg/dL (8.5-10.1); Chloride, Blood 102 mmol/L (98-108); Creatinine, Blood 0.71 mg/dL (0.60-1.20); Glomerular Filtration Rate >60 (60-); Glucose, Blood 161 mg/dL (70-99); Magnesium, Blood 2.4 mg/dL (1.6-2.4); Phosphorus, Blood 3.5 mg/dL (2.5-4.9); Potassium, Blood 4.8 mmol/L (3.5-5.5); Sodium, Blood 133 mmol/L (136-145)
--- NOTE | 2021-11-02 06:10 | NUR ---
PT REMAINED ABLE TO RESPOND TO VERBAL STIMULI THROUGHOUT SHIFT. DOES NOT FOLLOW COMMANDS WELL, SPEECH STILL DIFFICULT TO UNDERSTAND. PRECEDEX AT 0.6MCG/KG/HR HE WAS ATTEMPTING TO GET UP OUT OF BED AND BECOMING MORE AGITATED. CIWA'S REMAIN 14-15, ATIVAN GIVEN X2, PHENOBARBITOL GIVEN X1 PER EMAR. AFEBRILE CURRENTLY, TMAX OF 99.2. HR IS SR TO ST, RATE 90-100'S, BP WITH SBP IN 130-140'S. 2L O2 REMAINS ON, AUDIBLE EXPIRATORY WHEEZE CONTINUES, SPO2 >95%. CONDOM CATH REMAINS INTACT WITH [employer], 250ML OUT SINCE PLACEMENT. PPN INFUSING AT 105ML/HR. WILL REPORT TO ONCOMING SHIFT WHEN AVAILABLE.
--- NOTE | 2021-11-02 09:00 | NUR ---
Call placed to Dr Kang to ask for pain medications because patient is tense and crying. According to family, pt struggles with back pain and they think that is a motivation for his alcohol consumption.
--- NOTE | 2021-11-02 09:33 | NUR ---
Assumed care of pt at 0700. Report received from Kia AYALA. Precedex at 0.6 mcg/kg/hr. SpO2 90% or greater with 2 LPM NC. SR per monitor.
--- NOTE | 2021-11-02 17:00 | NUR ---
Call placed to Dr Kang to notify that pt passed bedside swallow eval and has been off precedex for several hours. Provider states that pt may be PCU status and may have full liquid diet.
--- NOTE | 2021-11-02 18:33 | NUR ---
SUMMARY Pt is now PCU status. Neuro: A&O x 2. Answers questions, slow to respond. Speech is often garbled and difficult to understand, however is becoming more clear and coherent as time goes on. Follows commands. Verbalizes needs. Pt passed bedside swallow eval. Strong cough and strong gag. Precedex has been off for several hours. Received 4 mg ativan today. This evening, able to take librium with capsules opened and mixed with pudding. Medicated for pain when he displayed grimace, rigid extremities, and crying. Responded well to 25-50 mg of fentanyl. Musculoskeletal: Moves all extremities with equal strength and range of motion. Sat up in recliner for 4 hours today. Mobilized with lift. Pt is profoundly weak and struggles to lift cup to his mouth to drink. Respriatory: Strong cough, productive but pt swallows the sputum. Does not correlate with PO intake. Occasional expiratory wheeze noted but lungs overall more clear as shift progressed. Currently 2 LPM NC for SpO2 90% or greater. Cardiac: SR per monitor. Has not received any BP meds. Clonidine patch remains in place to L shoulder. GI: Tolerating PO intake well. Smear BM this shift. : Condom catheter reapplied for management of urine incontinence. Skin: This RN shaved pt's face and left his mustache. Shaving revealed rash to right face. Pt received bed bath today and chair combed. No additonal changes since shift assessment. Psychosocial: Often tearful, but cooperative with care. Visited with his son and daughter today.
[2021-11-03 03:52] LABS: Magnesium, Blood 2.4 mg/dL (1.6-2.4); Phosphorus, Blood 2.8 mg/dL (2.5-4.9); Potassium, Blood 4.8 mmol/L (3.5-5.5)
--- NOTE | 2021-11-03 05:53 | NUR ---
SHIFT SUMMARY: NEURO - PT WAS AO TO PERSON AND PLACE, FORGETFUL OF SITUATION AND TIME. CAN ANSWER QUESTIONS BUT STILL VERY CONFUSED, MUMBLING WORDS AND SLURRING. PT WAS MEDICATED PER CIWA PROTOCOL. DID NOT SLEEP OVERNIGHT, AND TRYING TO GET OUT OF BED. STILL VERY WEAK ON ALL EXT. BED ALARM ON. RESP - ON ROOM AIR, TOLERATING. PRODUCTIVE MODERATE COUGH, NO SECRETIONS SUCTIONED. WHEEZING STARTED THIS MORNING, GETTING BREATHING TX TO HELP. CARDIAC - HYPERTENSIVE OVERNIGHT. GAVE LABETOLOL AND HYDRALIZINE PRN. AFEBRILE. HR REMAINED IN LOW 100's TO 110's. GI/ - CONDOM CATH REMAINS PATENT AND DRAINING GRAVITIY. NO BM. UO ADEQUATE. NPO WITH SOME SIPS OF WATER WITH MEDICATIONS. INTEG - BRUISING IS GETTING BETTER, OTHERWISE SKIN IS INTACT. Q2H TURNS WITH CEILING LIFT.
--- NOTE | 2021-11-03 07:41 | NUR ---
PT AWAKE. ORIENTED TO SELF, STATES DATE February, STATES HE IS AT [email or web address] [facility] AT [facility]. OTHER SPEECH IS RANDOM CONVERSATION THAT DOES NOT MAKE SENSE. SPEECH IS SLIGHTLY SLURRED. FOLLOWS COMMANDS TO COMIC ARTIST HANDS, HOLD ARMS OUT STRAIGHT, AND HOLD LEGS UP OFF BED. PT IS PROFOUNDLY WEAK AND NEEDS HELP GETTING EXTREMITIES OFF OF BED BUT CAN HOLD THEM THERE FOR A FEW SECONDS. NOT STRONG ENOUGH TO BRUSH OWN TEETH OR WASH FACE YET.
--- NOTE | 2021-11-03 18:18 | NUR ---
SUMMARY PT IS ORIENTED PER SELF, FAMILY, AND FOLLOWS COMMANDS. WAS UP IN RECLINER CHAIR MOST OF THE DAY. HE IS TIRED TONIGHT. ABLE TO VISIT WITH FAMILY TONIGHT AND WAS ABLE TO TELL THEM SOMEONE GAVE HIM MILK THAT WAS NOT WHOLE MILK FOR LUNCH, WHICH IS ACCURATE. BACK TO BED USING LIFT. PT IS PROFOUNDLY WEAK T/O. PHYSICAL THERAPY AND OT ADDED TODAY AND PT WAS ABLE TO PARTICIPATE BUT LIMITED DUE TO WEAKNESS. PT ONLY GOT ONE DOSE OF LIBRIUM THIS AM AND HAS NOT SHOWN SIGNS OF SIGNIFICANT WITHDRAWL SINCE. ABLE TO TAKE PILLS WITH APPLESAUCE WITHOUT DIFFICULTY. STILL DOES NOT HAVE MUCH OF AN APPETITE BUT WILL HAVE A FEW BITES OF FOOD AT MEAL TIME. PT HAD TAKEN CONDOM CATH OFF THIS AM BUT REQUESTED IT BE PUT BACK ON BEFORE HE GOT TO RECLINER BECAUSE IT IS HARD FOR HIM TO USE URINAL AND HE DOES NOT WANT TO URINATE ON HIMSELF.
--- NOTE | 2021-11-03 20:51 | NUR ---
ASSUMED CARE OF PT, AGREE WITH PREVIOUS NOC SHIFT ASSESSMENT.
--- NOTE | 2021-11-04 04:11 | NUR ---
AGITATION PT CONTINUES TO ATTEMPT TO GET UP OOB IND, WITH ASSIST HE WAS UNABLE TO MAINTAIN SITTING POSITION ON EDGE OF BED. PT INSISTS THAT HE IS ABLE TO STAND AND WANTS TO GET UP OOB. DISCUSSED PREVIOUS ATTEMPT TO ASSIST PT UP OOB AT 0200 AND PT CONTINUES TO STATE THAT HE CAN STAND AT THIS TIME. HE IS NOTED TO PUT LEGS OVER BEDRAILS AND PULL HIMSELF TO EDGE OF BED, HE STATES "YOU BETTER PUT A PILLOW DOWN THERE BECAUSE I'M GOING TO ROLL OUT ON MY KNEES AND CRAWL OVER TO THERE" POINTS TO FLOOR AND EDGE OF ROOM. MEDS ADMIN FOR INCREASED CIWA SCORE WELL COMPLAINTS OF PAIN TO BACK. HE ALSO INSTRUCTS THIS RN THAT "IF YOU TAKE THE VACUUM POWER PRESS SUPERVISOR APART, YOU WILL FIND 2 PILLS IN IT" AND REQUESTS THOSE PILLS BE ADMINISTERED. VEST RESTRAINT APPLIED FOR RISK OF FALL FROM BED.
--- NOTE | 2021-11-04 06:31 | NUR ---
PT SLEPT THIS SHIFT UNTIL NEAR 0200 THIS AM AT WHICH TIME HE STATED THAT HE WANTED TO GET UP OOB FOR BOWEL MOVEMENT. PT WAS ASSISTED TO SITTING ON EDGE OF BED WITH 2 RN ASSIST, HE WAS UNABLE TO MAINTAIN SITTING POSITION AND WOULD HEAVILY LEAN OVER TO ALL SIDES. THE DECISION WAS MADE THAT IT WOULD BE UNSAFE TO TRANSFER PT TO [facility] [place], ASSISTED BACK TO BED AND BEDPAN PROVIDED. PT STATED THAT HE WAS NOT GOING TO USE BEDPAN "YOU'RE NOT GOING TO WIPE MY ASS" PT WAS ALLOWED TO REMAIN ON BEDPAN X 5 MINUTES DURING WHICH TIME HE CONTINUED TO ATTEMPT TO SCOOT DOWN BED STATING THAT HE COULD STAND IF HE COULD SLIDE OUT THE END OF THE BED. ATIVAN 2 MG IV WAS ADMINISTERED X 2 WELL FENTANYL 50 MCG IV X 1 WITHOUT SIGNIFICANT REDUCTION IN AGITATION OR REPORTS OF BACK PAIN. PT WAS ALSO NOTED TO ATTEMPT TO ROLL UP OVER BED RAILS AND STATED THAT HE PLANNED TO FALL ON THE FLOOR AND CRAWL. GLO VEST RESTRAINT WAS INITIATED FOR CONCERN OF FALL. HE CONTINUES ABLE TO STATE THAT HE IS IN THE HOSPITAL BUT ALSO STATES THAT HE WAS ADMITTED FOR A STROKE.
--- NOTE | 2021-11-04 07:55 | NUR ---
patient awake, understandble words, oriented to self and place, lungs sounds tight expiratory wheeze, notified rt, patient having a treatment now, breakfast tray at bedside, will assist with feeding, rani vest on
[2021-11-04 10:40] LABS: Anion Gap 5 mmol/L (6-16); Blood Urea Nitrogen 33 mg/dL (8-24); Bun/Creatinine Ratio 42.6 (12.0-20.0); CO2, Blood 28 mmol/L (21-32); Calcium, Blood 9.7 mg/dL (8.5-10.1); Chloride, Blood 102 mmol/L (98-108); Creatinine, Blood 0.77 mg/dL (0.60-1.20); Glomerular Filtration Rate >60 (60-); Glucose, Blood 86 mg/dL (70-99); Magnesium, Blood 2.2 mg/dL (1.6-2.4); Phosphorus, Blood 3.4 mg/dL (2.5-4.9); Potassium, Blood 3.6 mmol/L (3.5-5.5); Sodium, Blood 135 mmol/L (136-145)
--- NOTE | 2021-11-04 12:04 | NUR ---
SON BLANCA AT BEDSIDE VISTING PATIENT, CHAIR ALARM ON, PATIENT CONTINUES TO TRY TO GET OOB AND OUT OF CHAIR, FORGETFUL OF HIS OWN STRENGTH, PT TO COME AND WORK WITH PATIENT, WCJOSE
--- NOTE | 2021-11-04 14:26 | NUR ---
patient has had visitors today, not oriented to self strength, rani vest on, medicated for pain, wctm
--- NOTE | 2021-11-04 15:56 | NUR ---
TRANSFER OF CARE TO PCU, REPORT GIVEN TO MARIELOS ISRAEL, TRANSPORTED VIA BED, CONDOM CATH CAME OFF, ATTENDS CHANGED BEFORE TRANSFER. TRANSFERRED TO PCU 9
--- NOTE | 2021-11-04 16:51 | NUR ---
PT ARRIVES FROM ICU, DROWSY, MOANS TO ANY STIMULI DOES NOT SPEAK. CONDOM CATH REPLACED, LINENS AND ATTENDS CHANGED. FMAILY ARRIVES IMMEDIATELY AFTER PT ARRIVES TO PCU, ATTEMPTS ARE MADE TO ANSWER QUESTIONS AND HELP WITH THEIR UNDERSTANDING OF PT'S CONDITION. PT PLACED ON 2L O2 VIA NC UPON ARRIVAL SPO2 WAS NOTED IN TO BE LOW 80s, SPO2 NOW 91% WITH O2 IN PLACE. PT AWAKENS TO PAINFUL STIMULI, OPENS EYES AND GROANS. OTHERWISE VSS. EVEN CHEST RISE AND FALL NOTED. SKIN WARM TO TOUCH, BUT AFEBRILE. PT REMAINS IN GLO VEST.
--- NOTE | 2021-11-05 02:02 | NUR ---
PATIENT AWOKE AT 0120 AND WAS CONCERNED HE WAS GOING TO WET THE BED. RE-ORIENTED, CHANGED ATTENDS, EMPTIED CATHETER BAG PER PATIENT REQUEST, AND PROVIDED THERAPEUTIC LISTENING. PATIENT IS VERY WEEPY AND INCOHERENT IN SPEECH. CIWA=8 AND MEDICATED PER EMAR.
--- NOTE | 2021-11-05 06:39 | NUR ---
SHIFT SUMMARY: PATIENT WOKE UP AND BEGAN INTERACTING WITH STAFF SHORTLY AFTER 0100. A&O TO SELF AND PLACE. PATIENT IS TEARFUL, COOPERATIVE WITH CARE, AND ATTEMPTED TO EAT HIS DINNER. MEDICATED PER EMAR. CIWA <=8. CONDOM CATH DRAINING TO GRAVITY. GLO VEST IN PLACE TO KEEP PATIENT FROM FALLING OUT OF BED - HE LEANS TO THE LEFT. PATIENT HAS CHRONIC BACK PAIN AND STATES MORPHINE NAD FENTANYL DON'T WORK. NO ADVERSE EVENTS THIS SHIFT. WILL REPORT TO ONCOMING RN.
[2021-11-05 09:42] LABS: Anion Gap 5 mmol/L (6-16); Blood Urea Nitrogen 34 mg/dL (8-24); Bun/Creatinine Ratio 46.6 (12.0-20.0); CO2, Blood 30 mmol/L (21-32); Calcium, Blood 9.7 mg/dL (8.5-10.1); Chloride, Blood 99 mmol/L (98-108); Creatinine, Blood 0.73 mg/dL (0.60-1.20); Glomerular Filtration Rate >60 (60-); Glucose, Blood 151 mg/dL (70-99); Magnesium, Blood 2.5 mg/dL (1.6-2.4); Phosphorus, Blood 2.8 mg/dL (2.5-4.9); Potassium, Blood 4.3 mmol/L (3.5-5.5); Sodium, Blood 134 mmol/L (136-145)
--- NOTE | 2021-11-05 17:20 | NUR ---
SHIFT SUMMARY: PT. ALERT BUT NOT ORIENTED (ONLY TO SELF, AND FOLLOWING DIRECTIONS). THE GOAL WAS TO GET THE PT. OUT OF THE GLO VEST TODAY, BUT HE CONTINOUSLY WAS PULLING ON LINES, AND TUBING. PT WAS WORKED UP AT TIMES AND UNDID HIS GLO RESTRAINTS TWICE. PT. HAS BEEN HYPERTENSTION AND HAS BEEN RUNNING SYST IN THE 170'SM MEDICATED W/ HYDRALAZINE, AND BP WAS UNTOUCHED. RESTARTED TWO HOME MEDS FOR HYPERTENSION (ATENOLOL AND IMDUR). PT. HAD SPEECH THERAPY AND GOT ADVANCED TO A [facility] SOFT DIET, AND PPN WAS D/C'D. PT. HAD ONE EPISODE OF ANGINA IN AM AND IT WENT AWAY WITHIN 10 MINS OF START. NO REOCCURING CHEST PAIN FOR THE REST OF THE SHIFT. ORDERED EKG, AND TROP LABS. THIS AFTER NOON HE WAS STATUS CHANGED TO MED NO TELE. PT. WAS TRANSFERED TO RECLINER W/ 2-3 P ASSIST W/ FWW AND GAIT BELT. CIWA SCORES OF 12 OR LESS. PT WAS MEDICATED ONCE W/ LIBRIUM.
[2021-11-06 04:34] LABS: Triglycerides 67 mg/dL (30-160)
[2021-11-06 04:38] LABS: Anion Gap 5 mmol/L (6-16); Blood Urea Nitrogen 38 mg/dL (8-24); Bun/Creatinine Ratio 41.4 (12.0-20.0); CO2, Blood 29 mmol/L (21-32); Calcium, Blood 9.6 mg/dL (8.5-10.1); Chloride, Blood 102 mmol/L (98-108); Creatinine, Blood 0.92 mg/dL (0.60-1.20); Glomerular Filtration Rate >60 (60-); Glucose, Blood 124 mg/dL (70-99); Magnesium, Blood 2.4 mg/dL (1.6-2.4); Potassium, Blood 4.4 mmol/L (3.5-5.5); Sodium, Blood 136 mmol/L (136-145)
--- NOTE | 2021-11-06 06:45 | NUR ---
PT CONTINUES TO REQUIRED GLO VEST RESTRAINT WHILE IN BED AND UP TO CHAIR TO REDUCE THE RISK OF PATIENT FALLING DUE TO IMPULSIVITY AND FAILURE TO RECOGNIZE HIS LIMITATIONS DUE TO WEAKNESS, DECONDITIONING AND AN UNSTEADY GAIT. PT MADE REPEATED ATTEMPTS THROUGHOUT THE NIGHT TO GET OUT OF BED, ATTEMPTING TO REMOVE THE GLO VEST, PUTTING HIS LEGS OVER THE SIDE OF THE BED, AND THEN BEING UNABLE TO RETURN TO AN APPROPIATE AND SAFER POSITION IN THE BED. PT WAS TEARFUL AND ANXIOUS DURING THE FIRST HALF OF THE SHIFT AND WAS DIFFICULT TO REDIRECT AT TIMES. ORIENTATION TO HIS SURROUNDINGS WAXED AND WANED. CIWA PROTOCOL IN PLACE. PATIENT DID RECEIVE ONE DOSE OF LIBRIUM, BUT THEN EXPERIENCED NAUSEA WITHIN THE HOUR FOLLOWING TAKING THE MEDICATION. IV ATIVAN ADMINISTERED PER CIMD PROTOCOL FOLLOWING A DOSE OF ONDANSETRON. PATIENT CONTINUED TO MAKE REPEATED ATTEMPTS TO EXIT HIS BED UNTIL APPROXIMATELY 03:00, WHEN HE WAS OBSERVED TO BE RESTING COMFORTABLY IN BED WITH HIS EYES CLOSED. INITIALLY, DOCUMENTATION OF RESTRAINT MONITORING WAS COMPLETED BY ME EVERY TWO HOURS NOTING THE EXACT TIME THAT I ENTERED THE PATIENT'S ROOM. NEAR THE END OF MY SHIFT I WAS ADVISED THAT THE HOSPITAL PREFERENCE IS FOR RESTRAINT DOCUMENTATON TO BE COMPLETED ON THE HOUR EVERY TWO HOURS ON THE EVEN HOUR, THEREBY PROVIDING MORE CONSISTENCY IN TIMING OF SAID CHARTING FORM SHIFT TO SHIFT.
--- NOTE | 2021-11-06 13:01 | NUR ---
PT SEEN BY PHYSICAL THERAPY. PT SAT AT EDGE OF BED WITH MAX ASSIST OF GETTING HIM THERE. PT EMOTIONS WERE VERY LABILE AT TIME OF THERAPY. AFTER PHYSICAL THERAPY WAS FINISHED, PT WANTED HIS BREAKFAST TRAY. PT WAS ABLE TO TAKE 0900 PO MEDS WITH APPLE SAUCE AT THIS TIME, TOLERATED WELL.
--- NOTE | 2021-11-06 16:26 | NUR ---
UPDATE PT PULLED OFF CONDOM CATH. COLLECTION BAG EMPTIED AND NEW CONDOM CATH APPLIED.
--- NOTE | 2021-11-06 18:25 | NUR ---
SHIFT SUMMARY PT LETHARGIC FOR MOST OF SHIFT, HAD BRIEF PEROID AT LUNCH TIME WHERE PT WAS AWAKE AND ABLE TO ANSWER QUESTIONS AFTER PHYSICAL THERAPY SAT HIM UP AT EDGE OF BED. PT WAS ABLE TO GIVE NAME, , WHAT HOSPITAL, TOWN, AND THE REASON HE WAS ADMITTED. PT SPEECH WAS SLOW AND HARD TO HEAR AT TIMES. PT HAD DIFFICULTIES FEEDING SELF, FEEDER IN ROOM FOR ASSISTANCE. PT BP ELEVATED IN MORNING, BP STABLE AFTER RECIEVING MORNING MEDS. OTHER VSS THROUGHOUT SHIFT. PT REMAINED IN GLO VEST PER ORDERS DUE RANDOM IMPULSES OF TRYING TO CLIMB OUT OF BED. PT PULLED OFF CONDOM CATH, CONDOM CATH REPLACED AND PATENT.
--- NOTE | 2021-11-07 12:29 | NUR ---
UPDATE AT ROUGHLY 1200, PT REPORTED CHEST PAIN THAT RADIATED TO LEFT ARM AND THEN TO JAW 02/10. EKG DONE AND IN CHART, DR NOTIFIED. NITRO TAB GIVEN Q5 MIN FOR A TOTAL OF 2 TABS. PT REPORTED THAT CHEST PAIN WAS SUBSIDING 11/10. Q5 MIN VSS, SBP DOWN TO 90'S THEN RETURNED TO 110'S AFTER 20 MINUTES. PT CURRENTLY IN BED, CALL LIGHT WITHIN REACH.
--- NOTE | 2021-11-07 17:42 | NUR ---
SHIFT SUMMARY PT A/O X4 AND COOPERATIVE OF CARE. PT REPORTED CHEST PAIN AROUND NOON, SEE PREVIOUS NOTES. SBP'S DIPPED DOWN TO 90'S AFTER RECIEVING NITRO TABS DURING CHEST PAIN EVENT, BP STABLIZED. NO REPORT OF SOB THROUGHOUT SHIFT. PT MENETATION IMROVED FROM YESTERDAY, FINE MOTOR SKILLS IMPROVED WELL. NO REPORT OF SOB/DYSPNEA, SATS OCCASSIONALLY DOWN TO HIGH 80'S WHILE ON 2L NC. O2 INCREASED TO 4L NC, SATS IN THE 90'S. OTHER VSS THROUGHOUT SHIFT. BED ALARM IN PLACE. PT MOVED TO PCU STATUS AFTER CHEST PAIN EVENT. TELEMTRY ORDERED AND IN PLACE. PT ABLE TO LET NEEDS KNOWN, CONTINUOUSLY ASKING WHEN HE CAN RECIEVE HIS PAIN MEDS.
[2021-11-08] MEDS ORDERED: OXYC10TA19 PO (00:42)
--- NOTE | 2021-11-08 00:46 | NUR ---
CALL TO HOSPITALIST - DR. RAMIRES PATIENT COMPLAINING OF 9/10 PAIN AND IS IN TEARS BECAUSE THE PAIN IS SO BAD. HE STATES THAT OUTPATIENT HE WAS TAKING 10 MG OXYCODONE EVERY 6 HOURS PRN UP UNTIL A COUPLE WEEKS BEFORE HE CAME INTO THE HOSPITAL. HE STATES THAT PAIN IS THE REASON THAT HE CAME TO THE HOSPITAL. HE SAID THAT HIS PAIN HAD BECOME SO SEVERE THAT HE WAS QUESTIONING IF HE COULD CONTINUE TO LIVE WITH THAT DEGREE OF PAIN. THIS IS MY THIRD NIGHT MR. FLEMING'S NURSE, AND EACH NIGHT HE HAS COMPLAINED OF HIS CHRONIC LOWER BACK PAIN. PER MY DISCUSSION WITH HIS DAUGHTER ABRAHAN ON THE EVENING OF November, SHE CONFIRMED THAT MR. FLEMING HAS SEVERE CHRONIC BACK PAIN AND HAS BEEN TAKING OXYCODONE FOR YEARS. SHE WASN'T CERTAIN OF THE DOSE AT THE TIME. MR. FLEMING'S MENTATION HAS IMPROVED SIGNIFICANTLY IN THE PAST THREE NIGHTS. HE IS LESS IMPULSIVE AND NO LONGER REQUIRING A GLO VEST FOR SAFETY. HE IS ALERT & ORIENTED EXCEPT TO THE SPECIFIC DATE, BUT KNOWS THAT IT IS 2021. DR. RAMIRES HAS BEEN ADVISED OF THE ABOVE. NEW ORDER RECEIVED.
[2021-11-08 03:18] LABS: Hematocrit 37.2 % (37.0-53.0); Hemoglobin 12.3 g/dL (13.5-17.5); Mean Corpuscular HGB 33.7 pg (26.0-34.0); Mean Corpuscular HGB Conc 33.1 g/dL (31.5-36.5); Mean Corpuscular Volume 102 fL (80-100); Mean Platelet Volume 9.4 fL (9.1-12.4); Platelet Count 246 K/mm3 (150-400); RDW Coefficient Variation 13.7 % (11.7-14.2); Red Blood Cell Count 3.65 M/mm3 (4.30-5.90)
[2021-11-08 03:37] LABS: Bun/Creatinine Ratio 37.3 (12.0-20.0); Calcium, Blood 8.7 mg/dL (8.5-10.1); Creatinine, Blood 1.26 mg/dL (0.60-1.20); Magnesium, Blood 2.1 mg/dL (1.6-2.4); Phosphorus, Blood 4.1 mg/dL (2.5-4.9); Potassium, Blood 4.2 mmol/L (3.5-5.5)
--- NOTE | 2021-11-08 08:41 | NUR ---
AM NOTE: PATIENT VERY SLEEPY AND LETHARGIC THIS AM. ALERT AND ORIENTED X3. MENTATION SEEMS TO BE IMPROVING PER CAR CHECKER REPORT. OVERALL VERY WEAK. HARD TO UNDERSTAND SPEECH AT TIMES. PERRLA. BEDREST AT THIS TIME. BED ALARM IN PLACE. TELE THIS AM SHOWING SINUS RHYTHM WITH HR 60-70'S. BP STABLE. MEDICAL STATUS WITH NO TELE. DENIES CHEST PAIN/PRESSURE. ON 4L NASAL CANNULA SATING MID 90'S. WILL TITRATE ABLE. BREATHING TREATMENTS PER RESP. EXPIRATORY WHEEZE HEARD THIS AM. OCCASIOANL HARSH/HACKING COUGH. SPEECH THERAPY ORDERS IN PLACE. TOLERATING PO DIET/NECTAR THICK LIQUID. CONDOM CATH IN PLACE DRAINING CLEAR/MARIELOS URINE. PATIENT COMPLAINS OF CHRONIC LOWER BACK PAIN, SEE EMAR FOR PAIN MEDS. OVERALL SKIN FRAGILE AND ECCHYMOTIC. EXTENSIVE BRUISING TO LEFT FLANK/SIDE. ASSISTING PATIENT WITH MEALS. CALL LIGHT IN REACH. WILL CONTINUE TO MONITOR.
--- NOTE | 2021-11-08 17:46 | NUR ---
SHIFT SUMMARY: NO CHANGES IN NEURO. PATIENT REMAINS LETHERGIC AND SLEEPY THROUGHOUT SHIFT. TITRATED DOWN TO 1L NASAL CANNULA SATING MID 90'S. OCCASIONAL COUGH. NO TELE. BP REMAINS STABLE. DENIES CHEST PAIN/PRESSURE. SPEECH THERAPY ORDERS IN PLACE. ASSISTING PATIENT WITH MEALS. NECTAR THICK LIQUIDS. PATIENT FINE MOTOR SKILLS IMPROVING AND FEEDING SELF. FAMILY IN TO VISIT. VITAL SIGNS REMAINS STABLE. EATING DINNER AT THIS TIME WITH THIS RN SUPERVISION. MEDICATED THROUGHOUT SHIFT FOR PAIN, SEE EMAR. CALL LIGHT IN REACH. DENIES NEEDS AT THIS TIME. WILL CONTINUE TO MONITOR AND REPORT OFF TO ONCOMING RN.
--- NOTE | 2021-11-08 21:52 | NUR ---
WHILE REPOSITIONING PT IN BED PT DROPPED 2 PILLS. PT STATED THAT THEY WERE TYLENOL AND HIS NIECE GAVE THEM TO HIM. HE STATES THAT HE WAS GOING TO TAKE THEM TO "TAKE OFF THE EDGE." PILL WERE IDENTIFIED HYDROCODONE ([id number]). WHEN PILLS WERE TAKEN AND PT WAS EDUCATED ON TAKING ADDITIONAL MEDICATION. PT THEN ATTEMPTED TO GET OUT OF BED AND SAID "IT'S TIME TO GET OUT OF HERE." PT VERY UPSET THROWING THINGS. HE WAS TALKED BACK INTO BED AND GIVEN MEDICATION FOR AGITATION. CALL LIGHT IS WITHIN REACH. BED ALARM IS ACTIVE.
--- NOTE | 2021-11-08 22:15 | NUR ---
CALLED DR FLORES REGARDING PT WANTING ADDITIONAL PAIN MEDICATION. NO NEW ORDERS GIVEN.
[2021-11-09 04:27] LABS: Anion Gap 3 mmol/L (6-16); Blood Urea Nitrogen 31 mg/dL (8-24); Bun/Creatinine Ratio 28.7 (12.0-20.0); CO2, Blood 32 mmol/L (21-32); Calcium, Blood 9.2 mg/dL (8.5-10.1); Chloride, Blood 104 mmol/L (98-108); Creatinine, Blood 1.08 mg/dL (0.60-1.20); Glomerular Filtration Rate >60 (60-); Glucose, Blood 97 mg/dL (70-99); Sodium, Blood 139 mmol/L (136-145)
--- NOTE | 2021-11-09 06:10 | NUR ---
SHIFT SUMMARY PT IS ALERT AND ORIENTED. VITALS HAVE BEEN STABLE AND IS ON 1L NC WITH SATS ABOVE 90%. PT DENIES CHEST PAIN OR SOB. PT HAS BEEN AWAKE ALL NIGHT WATING SNACKS. LAST NIGHT TWO PILLS WERE DROPPED OUT OF PT'S HAND WHEN REPOSITIONING. PT STATED THEY WERE TYLENOL THAT WERE GIVEN BY MICHELLE. WHEN IDENTIFIED THEY WERE NORCO. PHARM WAS CONTACTED AND PILLS WERE TAKEN TO PHARM. PT WAS VERY ANGRY AND WAS ATTEMPTING TO GET OUT OF BED AND LEAVE. CALL LIGHT IS WITHIN REACH AND BED ALARM IS ACTIVE.
--- NOTE | 2021-11-09 16:40 | NUR ---
SHIFT SUMMARY PT REMAINS ALERT AND ORIENTED. VS STABLE. O2 SATS REMAIN ABOVE 90% ON 2L NC. PT COMPLAINS OF PAIN IN HIS BACK THROUGHOUT SHIFT AND MEDICATED PER EMAR. PT TOLERATING PO INTAKE AND WAS ADVANCED PER SPEECH THERAPY. PT REPOSITIONING HIMSELF IN BED AND ASSISTED Q2H. CONDOM CATH IN PLACE WITH CLEAR YELLOW URINE. WILL CONTINUE TO MONITOR AND REPORT TO ONCOMING RN
--- NOTE | 2021-11-10 06:12 | NUR ---
SHIFT SUMMARY PT IS ALERT AND ORIENTED. PT HAS BEEN IRRITABLE AT TIMES BECAUSE HE WANT PAIN MEDS EARLY AND WILL STATE THE HE IS GOING TO LEAVE AND GET MEDS ON THE STREET. PT ALSO STATED THAT HE WANTS TO GO OUTSIDE AND SMOKE AND ATTEMPTED TO GET OUT OF BED SEVERAL TIMES. VITALS HAVE BEEN STABLE AND IS ON ROOM AIR TO 2L NC WITH SATS ABOVE 90%. PT DENIES CHEST PAIN OR SOB. CONDOM CATH FLOWING, PT HAS HAD A BIG APPETITE T/O THE NIGHT AND HAS HAD LITTLE SLEEP. CALL LIGHT IS WITHIN REACH.
--- NOTE | 2021-11-10 15:51 | NUR ---
UPDATE PT REMAINS ALERT AND ORIENTED. VS STABLE. O2 SATS REMAIN ABOVE 90% ON RA MOST OF SHIFT, BUT DESATS TO HIGH 80'S WHILE SLEEPING. BP STABLE. PT COMPLAINS OF CHRONIC BACK PAIN AT TIMES AND MEDICATED PER EMAR. PT ABLE TO STAND AND TRANSFER WITH 2 ASSIST AND GB WALKER SHORT DISTANCES. REPORT GIVEN TO MEDICAL FLOOR RN. PT TAKEN UP BY JUSTINO
--- NOTE | 2021-11-10 17:58 | NUR ---
AOX4 CAN MAKE NEEDS KNOWN. CURRENTLY COOPERATING WITH CARE. CURRENTLY STATING TOLERABLE PAIN LEVEL. NO ACUTE CHANGES. CALL LIGHT IN REACH.
--- NOTE | 2021-11-11 04:46 | NUR ---
SHIFT SUMMARY A/O2-3, FORGETFUL AT TIMES. C/O MODERATE LOWER BACK PAIN, MEDICATED PER EMAR. DENIES SOB/CP. CONT/INCONT, ATTENDS IN PLACE. VSS, NO ACUTE CHANGES AT THIS TIME. BED IN LOWEST POSITION WITH CALL LIGHT IN PLACE. WILL CONTINUE TO MONITOR AND REPORT TO ONCOMING RN.
--- NOTE | 2021-11-11 14:37 | NUR ---
Spoke with Primary RN Lara prior to Pt visit and discussed case. Pt for the most part is A&O but does experience intermittent confusion. Pt sitting on edge of bed upon arrival. Pt on 2 LO2 via NC. Pt reports at baseline he does not use oxygen. Pt is A&OX4 at time of visit. Engaged in therapeutic listening as Pt reports having children and grandchildren. He reports having a good relationship with them. Listened as Pt discusses his passing away 10 years ago. They were for 40 years. Reviewed plan of care including D/C plan for SNF. Pt does express concerns that facilities are not accepting hime due to his alcohol use. Continued therapeutic listening. Discussed considering completing an advanced directive and the importance of appointing a healthcare petroleum products sales representative. Pt agreeable for this RN to leave AD at his bedside but is requesting visit at a later time due to needing to use the restroom. Assisted Pt to bathroom and ended visit. Reported to Primary RN of Pt using bathroom. Palliative Care will F/U for education on AD.
--- NOTE | 2021-11-11 17:00 | NUR ---
AOX4. CAN MAKE NEEDS KNOWN. COOPERATING WITH CARE. STATES PAIN LEVEL OF 8/10, PRN PAIN MEDS GIVEN. NO ACUTE CHANGES. CALL LIGHT IN REACH.
--- NOTE | 2021-11-12 00:15 | NUR ---
DR. GIL HOSPITALIST WAS NOTIFIED OF PT FALL IN ROOM. PT DENEIS DISCOMFORT OR INJURY.
--- NOTE | 2021-11-12 08:20 | NUR ---
SHIFT SUMMARY PT ADMITTED FOR ALCOHOL WITHDRAWAL, APPEARS NO WITHDRAWAL SX T/O SHIFT. PT FELL LAST NIGHT. CHARGE NURSE NOTIFIED DR. GIL. PT DENIES HEAD INJURY, DENIES LOC, DENIES PAIN, DENIES DIZZINESS AND H/A. BED ALARM IN PLACED FOR SAFETY. PT CAN MOVE INDEPENDENTLY BUT NEED ASSISTANCE AT TIMES BECAUSE HE WALKS UNSTEADY. HX FREQUENT FALLS, HAS L LATERAL THIGH/HIP AND BACK BRUISING FROM PREVIOUS FALL PRIOR TO ADMISSION. PT REPORTS CHRONIC BACK PAIN WITH OXYCODONE, Q6. BUCK PO INTAKE. DENIES N/V. VOIDS ADEQUATELY. CALL LIGHT WITHIN REACH. REPORT GIVEN TO DAY NURSE.
--- NOTE | 2021-11-12 18:34 | NUR ---
SHIFT SUMMARY: PATIENT ALERT AND ORIENTED X4. PATIENT FELL DURING THE SHIFT. NO INJURIES WERE SUSTAINED. CHARGE NURSE AND DOCTOR AWARE. PATIENT HAS BEEN IN CONSTANT PAIN ALL DAY. HE WAS MEDICATED WITH BOTH OXYCODONE AND TYLENOL DURING THE DAY. PAIN IN HIS BACK DOES NOT SEEM TO BE GETTIG BETTER. PATIENT IS CONTINENT AND FREQUENTLY USES A URINAL. BED ALARM IS ON AND BED IN THE LOWEST POSITION. CALL LIGHT IN REACH. WILL CONTINUE TO MONITOR.
--- NOTE | 2021-11-13 04:23 | NUR ---
PT REQUESTING PAIN MEDICATION THROUGHOUT SHIFT. PT RESTLESS, UP IN WHEELCHAIR AROUND DEPARTMENT WITH STAFF. PT AGGITATED REGARDING BEDALARM AND LACK OF AUTONOMY. PT GIVEN PRN OLANZAPINE TO HELP WITH AGGITATION. PT REPORTS SLEEPING FOR AN HOUR THROUGHOUT THE NIGHT. PT UNABLE TO HAVE BM, GIVEN PRUNE JUICE AND EDUCATION.
[2021-11-13 08:28] LABS: Source, Urine Clean Catch
[2021-11-13 08:48] LABS: Appearance, Urine Clear (Clear); Bilirubin, Urine Neg (Neg); Blood, Urine Neg (Neg); Color, Urine Yellow (P-Yellow); Glucose Qualitative, Urine Neg (Neg); Ketones, Urine Neg (Neg); Leukocyte Esterase, Urine Neg (Neg); Nitrite, Urine Neg (Neg); Protein, Urine Neg (Neg); Specific Gravity, Urine 1.015 (1.003-1.022); Urobilinogen, Urine NORM (Normal)
[2021-11-13 08:50] LABS: Hematocrit 36.9 % (37.0-53.0); Hemoglobin 11.9 g/dL (13.5-17.5); Mean Corpuscular HGB 33.5 pg (26.0-34.0); Mean Corpuscular HGB Conc 32.2 g/dL (31.5-36.5); Mean Corpuscular Volume 104 fL (80-100); Mean Platelet Volume 9.3 fL (9.1-12.4); Platelet Count 265 K/mm3 (150-400); RDW Coefficient Variation 14.3 % (11.7-14.2); RDW Standard Deviation 55.2 fL (35.1-46.3); Red Blood Cell Count 3.55 M/mm3 (4.30-5.90); White Blood Cell Count 16.21 K/mm3 (4.00-11.30)
[2021-11-13 09:07] LABS: Albumin/Globulin Ratio 0.9 (0.8-1.8); Bilirubin, Total 0.3 mg/dL (0.1-1.0); Bun/Creatinine Ratio 24.3 (12.0-20.0); Calcium, Blood 9.4 mg/dL (8.5-10.1); Creatinine, Blood 0.99 mg/dL (0.60-1.20); Globulin, Blood 3.3 g/dL (2.2-4.0); Potassium, Blood 4.3 mmol/L (3.5-5.5); Total Protein, Blood 6.3 g/dL (6.4-8.2)
--- NOTE | 2021-11-13 16:19 | NUR ---
SHIFT SUMMARY- PT A/OX2, PERSON AND PLACE. PT DROWSY AT TIMES BUT AWAKES TO VERBAL STIMULI BUT QUICKLY FALLS BACK TO SLEEP. PT REPORTS HE HASNT BEEN SLEEPING WELL. PT NOTED TO HAVE FEVER THIS AM, TYLENOL GIVEN. FEVER RESOLVED BY THIS AFTERNOON. STARTED ON IV ABX. CHEST XRAY AND MRI OF BACK COMPLETED. PT REPORTS CHRONIC LOWER BACK PAIN, STARTED ON OXYCONTIN TODAY. PT UP WITH 1-2 ASSIST. LS WITH INSP/EXP WHEEZES THIS AM, BREATHING TX GIVEN AND PLACED BACK ON 2L N/C. 2+ BLE EDEMA. PT DIURESING WELL TODAY. USES URINAL INDEP WITH MILD INCONT AT TIMES. NO OTHER ACUTE CHANGES THIS SHIFT.
[2021-11-14 08:23] LABS: Hematocrit 36.6 % (37.0-53.0); Hemoglobin 11.7 g/dL (13.5-17.5); Mean Corpuscular HGB 33.1 pg (26.0-34.0); Mean Corpuscular Volume 104 fL (80-100); Mean Platelet Volume 9.2 fL (9.1-12.4); Platelet Count 252 K/mm3 (150-400); RDW Coefficient Variation 14.4 % (11.7-14.2); RDW Standard Deviation 55.5 fL (35.1-46.3); Red Blood Cell Count 3.53 M/mm3 (4.30-5.90)
[2021-11-14 08:53] LABS: Albumin, Blood 2.7 g/dL (3.4-5.0); Albumin/Globulin Ratio 0.8 (0.8-1.8); Bilirubin, Total 0.3 mg/dL (0.1-1.0); Calcium, Blood 9.4 mg/dL (8.5-10.1); Creatinine, Blood 0.92 mg/dL (0.60-1.20); Globulin, Blood 3.2 g/dL (2.2-4.0); Potassium, Blood 4.2 mmol/L (3.5-5.5); Total Protein, Blood 5.9 g/dL (6.4-8.2)
--- NOTE | 2021-11-14 13:19 | NUR ---
AOX4, WITH FORGETFUL MOMENTS; CAN MAKE HIS NEEDS KNOWN. COOPERATING WITH CARE. STATES PAIN LEVEL OF 8/10 FOR CHRONIC BACK PAIN; SCHEDULED AND PRN PAIN MEDS GIVEN. NO ACUTE CHANGES. CALL LIGHT IN REACH.
--- NOTE | 2021-11-15 06:07 | NUR ---
PONCHO WAS AWAKE ALL NIGHT. FORGETING TO CALL FOR ASSIST OOB TO STAND AND USE URINAL MULTIPLE TIMES OVERNIGHT. OXYCONTIN WELL BREAKTHROUGH OXYCODONE GIVEN WITH MINIMAL PERIODS OF COMFORT FOR HIS BACK. PATIENT OOB TO CHAIR WITH SEAT ALARM IN PLACE. TWO PERSON ASSIST WHEN ALARM WOULD GO OFF. FREQUENT PROMPTING REQUIRED EACH TIME. 5 MG ORAL ZYPREXA GIVEN AROUND 0400 WITH ABOUT AN HOURS SOLID SLEEP. PATIENT IS NOT ARGUMENTATIVE, HE IS JUST UNAWARE OF HIS WEAKNESS AND EXTREMELY FORGETFUL.
--- NOTE | 2021-11-15 14:09 | NUR ---
AOX4, WITH FORGETFUL MOMENTS; CAN MAKE NEEDS KNOWN. STATES A PAIN LEVEL OF 8/10 FOR CHRONIC BACK PAIN, MORE SO TODAY; GIVEN SCHEDULED AND PRN PAIN MEDS. COOPERATING WITH CARE. NO ACUTE CHANGES. CALL LIGHT IN REACH.
--- NOTE | 2021-11-16 04:27 | NUR ---
SHIFT SUMMARY: NO SIGNIFICANT EVENTS ON NOC. PATIENT REMAINS ON 2L NC TO MAINTIAN SATS > 94%. WHEEZES NOTED T/O. 1PA WITH FWW TO BATHROOM. CAN BE IMPULSIVE AT TIMES. CHRONIC PAIN TREATED PER EMAR.
[2021-11-16 04:47] LABS: BASOPHILS ABSOLUTE AUTO 0.03 K/mm3 (0.00-0.23); BASOPHILS PERCENT AUTO 0 % (0-2); EOSINOPHILS ABSOLUTE AUTO 0.25 K/mm3 (0.00-0.68); EOSINOPHILS PERCENT AUTO 3 % (0-6); Hematocrit 36.5 % (37.0-53.0); Hemoglobin 11.8 g/dL (13.5-17.5); IMMATURE GRAN PERCENT AUTO 1 % (0-1); LYMPHOCYTES ABSOLUTE AUTO 1.51 K/mm3 (0.84-5.20); LYMPHOCYTES PERCENT AUTO 15 % (21-46); MONOCYTES ABSOLUTE AUTO 0.44 K/mm3 (0.16-1.47); MONOCYTES PERCENT AUTO 4 % (4-13); Mean Corpuscular HGB 33.6 pg (26.0-34.0); Mean Corpuscular HGB Conc 32.3 g/dL (31.5-36.5); Mean Corpuscular Volume 104 fL (80-100); Mean Platelet Volume 8.9 fL (9.1-12.4); NEUTROPHILS ABSOLUTE AUTO 7.74 K/mm3 (1.96-9.15); NEUTROPHILS PERCENT AUTO 77 % (41-73); Platelet Count 234 K/mm3 (150-400); RDW Coefficient Variation 14.5 % (11.7-14.2); RDW Standard Deviation 55.6 fL (35.1-46.3); Red Blood Cell Count 3.51 M/mm3 (4.30-5.90); White Blood Cell Count 10.07 K/mm3 (4.00-11.30)
[2021-11-16 05:07] LABS: Bun/Creatinine Ratio 31.3 (12.0-20.0); Creatinine, Blood 0.83 mg/dL (0.60-1.20); Potassium, Blood 4.3 mmol/L (3.5-5.5)
--- NOTE | 2021-11-16 10:56 | NUR ---
PATIENT WAS TAKEN OFF O2 AND DOING WELL ROOM AIR. PT AMBULATED SERVERAL FEET WITH FWW RA; STATS 91-95% WHILE WALKING. STATED NO SOB OR DIZZINESS.
--- NOTE | 2021-11-16 11:00 | NUR ---
AOX4 WITH FORGETFUL MOMENTS, SLIGHTLY [place]. CAN MAKE NEEDS KNOWN. PATIENT IS CURRENTLY ROOM AIR, TOLERATING WELL WITH AVERAGE STATS 94%. HAS CHORONIC PAIN, STATES LEVEL OF 8/10, SCHEDULED AND PRN PAIN MEDS GIVEN. COOPERATING WITH MEDICATION AND CARE. REMOVED FROM BED AND CHAIR ALARM, INSTRUCTED TO CALL FOR ASSISTANCE. NO ACUTE CHANGES. CALL LIGHT IN REACH.
[2021-11-16] MEDS ORDERED: Acetaminophen325 M1 PO (13:11)
[2021-11-16] MEDS ORDERED: ALBU2.5V5 INH (13:12)
[2021-11-16] MEDS ORDERED: BUDE.25 INH (13:12)
[2021-11-16] MEDS ORDERED: AMOCLA875 PO (13:13)
[2021-11-16] MEDS ORDERED: IPRAT-ALBUT 0.5-3 ML INH (13:15)
[2021-11-16] MEDS ORDERED: LIDO700A20 TOP (13:15)
[2021-11-16] MEDS ORDERED: LOSA50 PO (13:15)
[2021-11-16] MEDS ORDERED: PRED20 PO (13:16)
[2021-11-16] MEDS ORDERED: Nicoderm Cq1 EAC1 TOP (13:16)
[2021-11-16] MEDS ORDERED: MULVITA PO (13:16)
[2021-11-16] MEDS ORDERED: B-1100 M1 PO (13:17)
[2021-11-16] MEDS ORDERED: Vitamin D1000 UNI1 PO (13:17)
[2021-11-16] MEDS ORDERED: Seroquel Xr50 MG PO (13:17)
== END 2021-11-16 15:58 | disposition home health service (06) | DRG 896 ==
LOC: ER 23:20 → ERHOLD 10-27 05:16 → PCU 10-27 08:20 → ICUW 10-28 20:15 → ICUE 11-02 08:55 → PCU 11-04 15:55 → MEDS 11-10 16:16
PROVIDERS: Emergency Medicine; Family Medicine; Internal Medicine; Student in an Organized Health Care Education/Training Program; ADMIT Internal Medicine
PROC: HZ2ZZZZ Detoxification Services for Substance Abuse Treatment (ICD-10-PCS; principal; 2021-10-27)
DX: F10.231 Alcohol dependence with withdrawal delirium (principal); J96.01 Acute respiratory failure with hypoxia; J69.0 Pneumonitis due to inhalation of food and vomit; E87.1 Hypo-osmolality and hyponatremia; J44.1 Chronic obstructive pulmonary disease with (acute) exacerbation; B19.20 Unspecified viral hepatitis C without hepatic coma; I10 Essential (primary) hypertension; E83.39 Other disorders of phosphorus metabolism; F17.210 Nicotine dependence, cigarettes, uncomplicated; F03.90 Unspecified dementia, unspecified severity, without behavioral disturbance, psychotic disturbance, mood disturbance, and anxiety; R07.89 Other chest pain; G89.29 Other chronic pain; I25.10 Atherosclerotic heart disease of native coronary artery without angina pectoris; M54.50 Low back pain, unspecified; E87.6 Hypokalemia; Z71.6 Tobacco abuse counseling; I25.2 Old myocardial infarction; Z98.890 Other specified postprocedural states; Z79.82 Long term (current) use of aspirin; Z79.899 Other long term (current) drug therapy; Y90.2 Blood alcohol level of 40-59 mg/100 ml; W18.39XA Other fall on same level, initial encounter
CPT/HCPCS: 36415; 36430; 71045; 71046; 71275; 72148; 80048; 80053; 80069; 81003; 82947; 83735; 84100; 84132; 84145; 84295; 84478; 84484; 85025; 85027; 92526; 92610; 93005; 93010; 94640; 94664; 94760; 94761; 94762; 96374; 96375; 96376; 97110; 97116; 97162; 97166; 97530; 97535; 99285-25; A9270; C1751; G0480; J0360; J0696; J1650; J2060; J2405; J2560; J2930; J3010; J3411; J3475; J7030; J7040; J7042; J7060; J7120; J7512; Q9967

== ENCOUNTER 2022-02-19 18:50 | Inpatient (IN) | payer MEDICARE ==
[~2022-02-19] VITALS: Ht 177.8 cm; Wt 90.6 kg
[~2022-02-19 18:50] MED LIST changes: +ALBU2.5V5 INH; +AMOCLA875 PO; +ATEN25; +ATEN50 PO; +Acetaminophen325 M1 PO; +B-1100 M1 PO; +BRILINTA90 M7 PO; +BUDE.25 INH; +Clotrimazole-Be15 GM; +FUROSEMIDE20 MG PO; +IPRAT-ALBUT 0.5-3 ML INH; +ISOSORBIDE MONO30 MG PO; +LIDO700A20 TOP; +MULVITA PO; +POTA10T PO; +POTASSIUM CITR10 ME2 PO; +PRED20 PO; +Seroquel Xr50 MG PO; +TICA90TA PO; +Vitamin D1000 UNI1 PO
[2022-02-19 19:44] LABS: BASOPHILS ABSOLUTE AUTO 0.03 K/mm3 (0.00-0.23); BASOPHILS PERCENT AUTO 0 % (0-2); EOSINOPHILS ABSOLUTE AUTO 0.09 K/mm3 (0.00-0.68); EOSINOPHILS PERCENT AUTO 1 % (0-6); Hematocrit 47.6 % (37.0-53.0); Hemoglobin 15.5 g/dL (13.5-17.5); IMMATURE GRAN ABSOLUTE AUTO 0.05 K/mm3 (0.00-0.10); IMMATURE GRAN PERCENT AUTO 0 % (0-1); LYMPHOCYTES ABSOLUTE AUTO 3.26 K/mm3 (0.84-5.20); LYMPHOCYTES PERCENT AUTO 23 % (21-46); MONOCYTES ABSOLUTE AUTO 0.72 K/mm3 (0.16-1.47); MONOCYTES PERCENT AUTO 5 % (4-13); Mean Corpuscular HGB 31.4 pg (26.0-34.0); Mean Corpuscular HGB Conc 32.6 g/dL (31.5-36.5); Mean Corpuscular Volume 97 fL (80-100); Mean Platelet Volume 9.1 fL (9.1-12.4); NEUTROPHILS ABSOLUTE AUTO 10.26 K/mm3 (1.96-9.15); NEUTROPHILS PERCENT AUTO 71 % (41-73); Platelet Count 198 K/mm3 (150-400); RDW Coefficient Variation 14.3 % (11.7-14.2); RDW Standard Deviation 50.7 fL (35.1-46.3); Red Blood Cell Count 4.93 M/mm3 (4.30-5.90); White Blood Cell Count 14.41 K/mm3 (4.00-11.30)
[2022-02-19 20:07] LABS: Albumin, Blood 3.8 g/dL (3.4-5.0); Albumin/Globulin Ratio 0.9 (0.8-1.8); Bilirubin, Total 0.4 mg/dL (0.1-1.0); Bun/Creatinine Ratio 8.9 (12.0-20.0); Creatinine, Blood 1.79 mg/dL (0.60-1.20); Globulin, Blood 4.1 g/dL (2.2-4.0); Potassium, Blood 4.6 mmol/L (3.5-5.5); Total Protein, Blood 7.9 g/dL (6.4-8.2)
[2022-02-19 20:16] LABS: PCO2 Arterial 58.6 mmHg (35-45); PO2 Arterial 143 mmHg (80-100)
[2022-02-19 23:45] LABS: Influenza A, PCR NEGATIVE (NEGATIVE); Influenza B, PCR NEGATIVE (NEGATIVE); Resp Syncytial Virus, PCR NEGATIVE (NEGATIVE); SARS-Cov-2 (COVID-19) PCR, MMC NEGATIVE (NEGATIVE)
--- NOTE | 2022-02-19 23:58 | NUR ---
PT ADMITTED TO ICU BED 13 FROM THE ED. PT WAS TRANSFERRED INTO BED FROM THE STRETCHER VIA SLIDE SHEET. PT INTUBATED AND ON PROPOFOL FOR SEDATION. PT AGITATED AND RESTLESS. PROPOFOL TITRATED ACCORDINGLY. PT VENT SETTINGS ARE AC 16 TV 450 PEEP 5/40% FIO2 SAT 98%. 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 PT PRESENTS WITH A LEFT CHEST TUBE TO -20 SUCTION. SMALL AMOUNT OF SEROSANGUINOUS DRAINAGE NOTED. MARIELOS URINE NOTED IN VELASQUEZ CATHETHER. LABS INDICATE VIV, LR INFUSING PER PIV. PT RESTRAINED WITH SOFT UPPER EXTREMITY RESTRAINTS TO PREVENT PT FROM SELF EXTUBATION. WILL CONTINUE TO MONITOR.
[2022-02-20 00:42] LABS: U Amphetamine Screen Not Detected; U Barbituate Screen Not Detected; U Benzodiazapine Screen Not Detected; U Buprenorphine Screen Not Detected; U Cannabinoids Screen Not Detected; U Cocaine Screen Not Detected; U Methadone Screen Not Detected; U Methamphetamine Screen Not Detected; U Opiates Screen DETECTED; U Oxycodone Screen DETECTED; U Phencyclidine Screen Not Detected; U Propoxyphene Screen Not Detected
[2022-02-20 00:54] LABS: PCO2 Arterial 48.2 mmHg (35-45); PO2 Arterial 72.7 mmHg (80-100); pH Blood Arterial 7.36 (7.35-7.45)
[2022-02-20 07:00] LABS: Hematocrit 43.4 % (37.0-53.0); Hemoglobin 14.6 g/dL (13.5-17.5); Mean Corpuscular HGB 32.2 pg (26.0-34.0); Mean Corpuscular HGB Conc 33.6 g/dL (31.5-36.5); Mean Corpuscular Volume 96 fL (80-100); Mean Platelet Volume 9.2 fL (9.1-12.4); Platelet Count 124 K/mm3 (150-400); RDW Standard Deviation 49.2 fL (35.1-46.3); Red Blood Cell Count 4.54 M/mm3 (4.30-5.90)
[2022-02-20 07:18] LABS: Bun/Creatinine Ratio 13.1 (12.0-20.0); Calcium, Blood 8.3 mg/dL (8.5-10.1); Creatinine, Blood 1.37 mg/dL (0.60-1.20); Potassium, Blood 4.3 mmol/L (3.5-5.5)
--- NOTE | 2022-02-20 07:26 | NUR ---
PT REMAINED SEDATED ON VENT USING PROP AND FENT. PT TOLERATING THESE WELL AT THIS TIME. PT IS NOTED TO HAVE SIGNIFICANT SUBQ EMPHYSEMA TROUGHOUT THE CHEST AND NECK EXTENDING DOWN TO HIP AREA AND ARMS. CHEST TUBE TO -20CM SUCTION, NO NEW DRAINAGE NOTED. REPORT GIVEN TO ONCOMING NURSE.
--- NOTE | 2022-02-20 08:56 | NUR ---
ASSUMED CARE OF PT, REPORT RCV'D FROM LUCY BURRIS. PT INTUBATED AND SEDATED. VENT SETTINGS AC 14/450/5/40% WITH SATS>90%. WHEEZE BILATERAL UPPER/LOWER LOBES HEARD. CHEST TUBE TO LEFT CHEST, -20 SUCTION. PROPOFOL @ 55 MCG/KG/MIN, FENTANYL GTT @ 50 MCG/HR. PT GRIMACES WITH ANY MOVEMENT OR STIMULATION. PT UNABLE TO OPEN EYES DUE TO EXCESSIVE PERIORBITAL SWELLING. CREPITUS ACROSS PATIENTS FACE, ACROSS NECK AND CHEST AND MID ABDOMEN, DOWN LEFT ARM TO FINGERTIPS. VSS AT THIS TIME. SEE FULL SHIFT ASSESSMENT.
--- NOTE | 2022-02-20 18:07 | NUR ---
PT REMAINS INTUBATED AND SEDATED, VENT SETTING UNCHANGED. PROPOFOL @ 65 MCG/KG/MIN, FENTANYL GTT @ 50 MCG/HR. STARTED SCHEDULED LIBRIUM PER TUBE FOR ALCOHOL WITHDRAWLS. PT EASILY AGITATED WITH MINIMAL STIMULATION. CREPITUS CONTINUES ACROSS FACE, WORSENED AROUND NECK, SAME ON UPPER CHEST AND DOWN LEFT ARM. LEFT LATERAL CHEST TUBE REMAINS INTACT AND TO -20 SUCTION. VERY MINIMAL BLOOD FROM CHEST TUBE. VITAL HIGH TUBE FEEDING STARTED @ 25 ML/HR, GOAL RATE 35 ML/HR. ARTERIAL DUPLEX COMPLETED, AWAITING RESULTS. PATIENT HAS MOTTLING UP TO KNEES BILATERALLY. BLE COOL TO THE TOUCH, BILATERAL FEET DUSKY AND COLD. BILATERAL TIBIA PULSES WITH DOPPLER, BILATERAL PEDAL PULSES ABSENT. PHYSICIAN AWARE. 500 ML MARIELOS URINARY OUTPUT. SPUTUM SAMPLE SENT. PT'S SON AND DAUGHTER AT BEDSIDE TODAY, BOTH UPDATED WITH PT STATUS AND PLAN OF CARE. VSS T/O SHIFT. WILL REPORT TO ONCOMING NURSE.
--- NOTE | 2022-02-20 19:49 | NUR ---
REPORT RECEIVED AT BEDSIDE WITH THE DAYSHIFT NURSE. PT PRESENTS IN BED AND IS REMOVING TELEMTRY WIRES, CLOTHING AND OTHER MONITORING DEVICES. REORIENTED PATIENT TO SITUATION AND REAPPLIED THESE. PT IS DIAPHORETIC AND APPEARS SHORT OF BREATH. OXYGEN TITRATED TO 4LNC WHICH 3-4L NC IS HIS HOME BASELINE REQUIREMENT. PT VSS AND NO FEVER NOTED. PT IS DIAPHORETIC AND STATES HE IS HOT PT RECEIVING PPN AT THIS TIME AND CBGS ARE BEING MONITORED Q6H. WILL CONTINUE TO MONITOR.
--- NOTE | 2022-02-21 | NUR ---
FOLLOW UP ASSESSMENT COMPLETED ON THIS PATIENT AT MIDNIGHT. PT APPEARS COMFORTABLY SEDATED ON THE VENT WITH PROPOFOL AND FENTANYL DRIP INFUSING. NO CHANGES IN PATIENTS PHYSICAL ASSESSMENT OTHER THAN HIS CREPITUS HAS REDUCED IN HIS HEAD AND CHEST BUT STILL REMAINS PRESENT. PERIORBITAL SWELLING ALSO APPEARS TO BE DECREASING. VSS. WILL CONTINUE TO MONITOR.
[2022-02-21 03:58] LABS: BASOPHILS ABSOLUTE AUTO 0.01 K/mm3 (0.00-0.23); BASOPHILS PERCENT AUTO 0 % (0-2); EOSINOPHILS ABSOLUTE AUTO 0.24 K/mm3 (0.00-0.68); EOSINOPHILS PERCENT AUTO 3 % (0-6); Hematocrit 39.7 % (37.0-53.0); Hemoglobin 13.2 g/dL (13.5-17.5); IMMATURE GRAN ABSOLUTE AUTO 0.01 K/mm3 (0.00-0.10); IMMATURE GRAN PERCENT AUTO 0 % (0-1); LYMPHOCYTES ABSOLUTE AUTO 1.64 K/mm3 (0.84-5.20); LYMPHOCYTES PERCENT AUTO 24 % (21-46); MONOCYTES ABSOLUTE AUTO 0.26 K/mm3 (0.16-1.47); MONOCYTES PERCENT AUTO 4 % (4-13); Mean Corpuscular HGB Conc 33.2 g/dL (31.5-36.5); Mean Corpuscular Volume 96 fL (80-100); Mean Platelet Volume 9.6 fL (9.1-12.4); NEUTROPHILS ABSOLUTE AUTO 4.81 K/mm3 (1.96-9.15); NEUTROPHILS PERCENT AUTO 69 % (41-73); Platelet Count 97 K/mm3 (150-400); RDW Coefficient Variation 13.6 % (11.7-14.2); RDW Standard Deviation 48.8 fL (35.1-46.3); Red Blood Cell Count 4.12 M/mm3 (4.30-5.90); White Blood Cell Count 6.97 K/mm3 (4.00-11.30)
[2022-02-21 04:14] LABS: C-REACTIVE PROTEIN, EXT RANGE 9.65 mg/dL (0.000-0.300); Magnesium, Blood 1.9 mg/dL (1.6-2.4)
--- NOTE | 2022-02-21 04:19 | NUR ---
REPEAT PHYSICAL ASSESSMENT COMPLETED AT 0400. PATIENT REMAINS SEDATED ON VENT. PT REPOSITIONED IN BED AND ORAL CARE COMPLETED. PROPOFOL TITRATED DOWN TO 65. NO CHANGES IN PT ASSESSMENT AT THIS TIME. SMALL AMOUNT OF SEROSANGUINOUS DRAINAGE NOTED IN CHEST TUBE. URINE OUTPUT ADEQUATE WITH LR INFUSING. REPEAT LACTATE DRAWN WITH MORNING LABS. WILL CONTINUE TO MONITOR.
[2022-02-21 04:22] LABS: Albumin, Blood 2.6 g/dL (3.4-5.0); Albumin/Globulin Ratio 0.8 (0.8-1.8); Bilirubin, Total 0.3 mg/dL (0.1-1.0); Bun/Creatinine Ratio 18.5 (12.0-20.0); Calcium, Blood 8.1 mg/dL (8.5-10.1); Creatinine, Blood 0.92 mg/dL (0.60-1.20); Globulin, Blood 3.1 g/dL (2.2-4.0); Phosphorus, Blood 2.8 mg/dL (2.5-4.9); Potassium, Blood 3.8 mmol/L (3.5-5.5)
[2022-02-21 05:03] LABS: Total Protein, Blood 5.7 g/dL (6.4-8.2)
--- NOTE | 2022-02-21 07:30 | NUR ---
ASSUMED CARE: PT INTUBATED WITH VENT SETTINGS 16/450/5/40%. PROPOFOL GTT AT 60MCG/KG. FENTANYL GTT AT 50MCG/HR. SWELLING NOTED TO LEFT EYE LID, NIGHT RN STATES IMPROVEMENT. CHEST TUBE WITH NO LEAK NOTED. VELASQUEZ CATH IN PLACE WITH YELLOW URINE. NO ACUTE NEEDS AT THIS TIME.
--- NOTE | 2022-02-21 14:21 | NUR ---
DR TANG MENTIONED THIS AM THE POSSIBILITY OF PUTTING CT TO WATER SEAL. CALL TO CONFIRM IF HE ACTUALLY WANTED THIS DONE AND DR DECLINED AT THIS TIME.
--- NOTE | 2022-02-21 18:09 | NUR ---
SHIFT SUMMARY: PT REMAINS INTUBATED AND SEDATED. VENT SETTINGS UNCHANGED ALL SHIFT. PT SEDATED WITH PROPOFOL AT 60MCG/KG AND FENTANYL GTT. CREPITUS REMAINS TO EYEBROWS, LEFT CHEEK, CHEST, AND LEFT ARM. FAMILY VISITING T/O SHIFT. NO ACUTE NEEDS OR CONCERNS AT THIS TIME.
--- NOTE | 2022-02-21 19:00 | NUR ---
"ASSUMED CARE OF PATIENT AT THIS TIME PATIENT RESTING ON VENTILATOR. VSS, AC/VC MODE 16|450|5|35% FENTANYL INFUSING AT 50MCG/HOUR, PROPOFOL INFUSING AT 60MCG/KG/MIN SR ON MONITOR, RESTRAINTS IN PLACE"
[2022-02-22 05:12] LABS: BASOPHILS ABSOLUTE AUTO 0.01 K/mm3 (0.00-0.23); BASOPHILS PERCENT AUTO 0 % (0-2); EOSINOPHILS PERCENT AUTO 3 % (0-6); IMMATURE GRAN ABSOLUTE AUTO 0.02 K/mm3 (0.00-0.10); IMMATURE GRAN PERCENT AUTO 0 % (0-1); LYMPHOCYTES ABSOLUTE AUTO 1.47 K/mm3 (0.84-5.20); LYMPHOCYTES PERCENT AUTO 21 % (21-46); MONOCYTES PERCENT AUTO 4 % (4-13); Mean Corpuscular HGB 32.7 pg (26.0-34.0); Mean Corpuscular HGB Conc 34.2 g/dL (31.5-36.5); Mean Corpuscular Volume 96 fL (80-100); Mean Platelet Volume 10.2 fL (9.1-12.4); NEUTROPHILS ABSOLUTE AUTO 5.07 K/mm3 (1.96-9.15); NEUTROPHILS PERCENT AUTO 72 % (41-73); Platelet Count 111 K/mm3 (150-400); RDW Coefficient Variation 13.5 % (11.7-14.2); RDW Standard Deviation 48.8 fL (35.1-46.3); Red Blood Cell Count 3.97 M/mm3 (4.30-5.90); White Blood Cell Count 7.07 K/mm3 (4.00-11.30)
[2022-02-22 05:34] LABS: Bun/Creatinine Ratio 18.6 (12.0-20.0); Calcium, Blood 8.2 mg/dL (8.5-10.1); Creatinine, Blood 0.75 mg/dL (0.60-1.20); Magnesium, Blood 1.6 mg/dL (1.6-2.4); Phosphorus, Blood 3.8 mg/dL (2.5-4.9); Potassium, Blood 3.5 mmol/L (3.5-5.5)
--- NOTE | 2022-02-22 06:27 | NUR ---
SHIFT SUMMARY PATIENT SEDATED ON VENTILATOR. GRIMACES TO STIMULATION, DOES NOT FOLLOW COMMANDS, PERRLA. SR ON MONITOR IN 80'S. BP ELEVATED AT START OF SHIFT, BUT STABILIZED. DEPENDENT EDEMA. BLE DUSKY AND NEED DOPPLER TO FEEL PULSES. VENTILATOR SETTINGS UNCHANGD THROUGH SHIFT. CREPITUS NOTABLY IMPROVED. CHEST TUBE IN PLACE WITH 130 SANGUINOUS OUTPUT OVERNIGHT. DIMINISHED LUNG SOUNDS. DISTENDED ABDOMEN WITH HYPOACTIVE BOWEL SOUNDS. NO BM THIS SHIFT.
--- NOTE | 2022-02-22 08:58 | NUR ---
ASSUMED CARE REPORT FROM LUTHER AYALA AT 0700. PT INTUBATED AND SEDATED. VENT SETTINGS AC/VC 16/450/5/35%. LUNGS COARSE. CHEST TUBE TO LEFT LATERAL WALL, SECURED c FOAM TAPE. -20 CM SUCTION. NO FLUCTUATION. CREPITUS TO CHEST WALL, NECK, LEFT ARM. SANGINOUS DRAINAGE OUT. PROPOFOL AND FENTANYL GTT FOR PAIN AND SEDATION. COUGH/GAG REFLEX. WITHDRAWS FROM PAIN, GRIMACES c CARE. SR ON MONITOR, RATE 80'S. BP STABLE. ABD ROUND, SOFT, NON TENDER. BT X 4. OGT IN PLACE, VHP AT GOAL, 35 ML/HR c 30 ML FLUSHES q4 HR. NO RESIDUALS THIS AM. VELASQUEZ PATENT, DRAINING CLEAR YELLOW URINE TO GRAVITY. BLE DUSKY, PULSES BY DOPPLER. PICC TO [facility], DRESSING C/D/I. WILL CONTINUE TO MONITOR.
--- NOTE | 2022-02-22 17:44 | NUR ---
SHIFT SUMMARY PT REMAINS INTUBATED AND SEDATED. VENT SETTINGS UNCHANGED, AC/VC 16/450/5/35%. LUNGS CLEAR. MODERATE THICK PINK SECRETIONS FROM ETT. CHEST TUBE TO LEFT LATERAL WALL, WATER SEAL, NO FLUCTUATION. 50 ML SEROSANGINOUS FLUID OUT. CONTINUES TO HAVE CREPITUS TO FACE, CHEST AND LEFT ARM. PROPOFOL AND FENTANYL GTT FOR PAIN AND SEDATION. BOTH TITRATED DOWN THIS SHIFT, PT DID NOT FOLLOW COMMANDS, BEGAN COUGHING, SHAKING HEAD, GRIMACING. INCREASED SEDATION. TUBE FEEDS INCREASED TO 55ML/HR, NO RESIDUALS. VELASQUEZ PATENT, DRAINED 600 MARIELOS URINE OUT. WILL CONTINUE TO MONITOR UNTIL REPORT TO ONCOMING NURSE.
[2022-02-23 04:16] LABS: BASOPHILS ABSOLUTE AUTO 0.02 K/mm3 (0.00-0.23); BASOPHILS PERCENT AUTO 0 % (0-2); EOSINOPHILS ABSOLUTE AUTO 0.12 K/mm3 (0.00-0.68); EOSINOPHILS PERCENT AUTO 2 % (0-6); Hematocrit 35.8 % (37.0-53.0); Hemoglobin 12.1 g/dL (13.5-17.5); IMMATURE GRAN ABSOLUTE AUTO 0.04 K/mm3 (0.00-0.10); IMMATURE GRAN PERCENT AUTO 1 % (0-1); LYMPHOCYTES PERCENT AUTO 20 % (21-46); MONOCYTES ABSOLUTE AUTO 0.39 K/mm3 (0.16-1.47); MONOCYTES PERCENT AUTO 5 % (4-13); Mean Corpuscular HGB 32.1 pg (26.0-34.0); Mean Corpuscular HGB Conc 33.8 g/dL (31.5-36.5); Mean Corpuscular Volume 95 fL (80-100); Mean Platelet Volume 9.8 fL (9.1-12.4); NEUTROPHILS ABSOLUTE AUTO 5.44 K/mm3 (1.96-9.15); NEUTROPHILS PERCENT AUTO 72 % (41-73); Platelet Count 123 K/mm3 (150-400); RDW Coefficient Variation 13.7 % (11.7-14.2); RDW Standard Deviation 48.1 fL (35.1-46.3); Red Blood Cell Count 3.77 M/mm3 (4.30-5.90); White Blood Cell Count 7.51 K/mm3 (4.00-11.30)
[2022-02-23 04:36] LABS: Albumin, Blood 2.1 g/dL (3.4-5.0); Albumin/Globulin Ratio 0.6 (0.8-1.8); Bilirubin, Total 0.5 mg/dL (0.1-1.0); Bun/Creatinine Ratio 24.9 (12.0-20.0); Calcium, Blood 7.8 mg/dL (8.5-10.1); Creatinine, Blood 0.72 mg/dL (0.60-1.20); Globulin, Blood 3.5 g/dL (2.2-4.0); Magnesium, Blood 1.8 mg/dL (1.6-2.4); Potassium, Blood 3.7 mmol/L (3.5-5.5); Total Protein, Blood 5.6 g/dL (6.4-8.2)
--- NOTE | 2022-02-23 06:15 | NUR ---
"SHIFT SUMMARY PATIENT SEDATED ON VENTILATOR. DOES NOT FOLLOW COMMANDS BUT NODS PERCEPTIBLY. GRIMACES WITH STIMULATION. PERRLA. ETT IN PLACE ACVC 16|450|5|45%. LEFT CHEST TUBE IN PLACE TO WATER SEAL WITH 60 SANGUINOUS OUTPUT OVERNIGHT. BP STABLE SINUS RHYTHM IN THE 90'S OVERNIGHT. AFEBRILE. DUSKY BLE, PULSES PALPABLE. 7-BEAT RUN OF VTACH AT 0645. NO ABNORMAL LABS. 2 BOWEL MOVEMENTS OVERNIGHT. VELASQUEZ IN PLACE DRAINING TO GRAVITY. UOP LOW. FENTANYL RUNNING AT 25MCG/HOUR. PROPOFOL RUNNING AT 45MCG/KG/HOUR."
--- NOTE | 2022-02-23 10:54 | NUR ---
ASSUMED CARE OF PT AT 0700 PT INTUBATED AND SEDATED WITH PROPOFOL RUNNING AT 7 MCG/KG/MIN. FENTANYL AT 25 MCG. TKO NS RUNNING AT 15 MLS/HR. NO VISITORS IN ROOM THIS AM. CHEST TUBE INTACT WITH NO APPARENT ISSUES. VELASQUEZ CATH DRAINING TO GRAVITY. VITALS STABLE. SEE ASSESSMENT FOR OTHER INFORMATION.
--- NOTE | 2022-02-23 17:43 | NUR ---
END OF SHIFT SUMMARY PT UNABLE TO FOLLOW DIRECTIONS. HAS STOPPED NODDING HEAD TO YES/NO QUESTIONS. PROPOFOL TITRATED DOWN TO 15 MCG/KG/MIN. PRESEDEX RUNNING AT 0.3. NS TKO RUNNAING AT 15 MLS/HR. VITALS WNL. PEDAL PULSES ONLY FOUND WITH DOPPLER. NORMAL SINUS RHYTHM WITH OCCASIONAL PVC'S. VENT SETTINGS AT 16/450/5/35%. WATER SEAL CHEST TUBE DRAINING SCANT AMOUNT OF FLUIDS. CREPITUS FELT THROUGHOUT PT NECK, LEFT ARM, AND CHEST. DAUGHTER AND SON IN TO SEE PATIENT AT SEPERATE TIMES. VELASQUEZ CATH DRAINING TO GRAVITY WITH 650 DARK YELLOW FOUL SMELLING URINE. VITAL HP RUNNING AT GOAL RATE OF 55 MLS/HR.
--- NOTE | 2022-02-23 19:00 | NUR ---
ASSUMED CARE OF PATIENT AT THIS TIME. PATIENT IS SEDATED OB VENTILATOR. PRECEDEX 0.3/HR FENTANYL 25MCG/HR PROPOFOL 15/MCG/KG/HR. NO OBVIOUS SIGNS OF DISTRESS
[2022-02-24 04:49] LABS: BASOPHILS ABSOLUTE AUTO 0.02 K/mm3 (0.00-0.23); BASOPHILS PERCENT AUTO 0 % (0-2); EOSINOPHILS ABSOLUTE AUTO 0.28 K/mm3 (0.00-0.68); EOSINOPHILS PERCENT AUTO 4 % (0-6); Hematocrit 36.8 % (37.0-53.0); Hemoglobin 12.5 g/dL (13.5-17.5); IMMATURE GRAN ABSOLUTE AUTO 0.05 K/mm3 (0.00-0.10); IMMATURE GRAN PERCENT AUTO 1 % (0-1); LYMPHOCYTES ABSOLUTE AUTO 1.29 K/mm3 (0.84-5.20); LYMPHOCYTES PERCENT AUTO 18 % (21-46); MONOCYTES ABSOLUTE AUTO 0.41 K/mm3 (0.16-1.47); MONOCYTES PERCENT AUTO 6 % (4-13); Mean Corpuscular HGB 32.6 pg (26.0-34.0); Mean Corpuscular Volume 96 fL (80-100); Mean Platelet Volume 9.3 fL (9.1-12.4); NEUTROPHILS ABSOLUTE AUTO 5.24 K/mm3 (1.96-9.15); NEUTROPHILS PERCENT AUTO 72 % (41-73); Platelet Count 143 K/mm3 (150-400); RDW Coefficient Variation 13.9 % (11.7-14.2); RDW Standard Deviation 49.1 fL (35.1-46.3); Red Blood Cell Count 3.83 M/mm3 (4.30-5.90); White Blood Cell Count 7.29 K/mm3 (4.00-11.30)
[2022-02-24 05:38] LABS: Albumin, Blood 2.2 g/dL (3.4-5.0); Anion Gap 5 mmol/L (6-16); Blood Urea Nitrogen 21 mg/dL (8-24); CO2, Blood 26 mmol/L (21-32); Calcium, Blood 8.2 mg/dL (8.5-10.1); Chloride, Blood 107 mmol/L (98-108); Creatinine, Blood 0.75 mg/dL (0.60-1.20); Glomerular Filtration Rate 98 (60-); Glucose, Blood 125 mg/dL (70-99); Potassium, Blood 3.8 mmol/L (3.5-5.5); Sodium, Blood 138 mmol/L (136-145)
--- NOTE | 2022-02-24 06:26 | NUR ---
SHIFT SUMMARY PATIENT SEDATED ON VENTILATOR. NODS APPROPRIATELY BUT DOES NOT FOLLOW COMMANDS. GRIMACES WITH STIMULATION. PROPOFOL @ 10MCG/KG/HR, FENTANYL @ 25MCG/HR, PRECEDEX @0.3/HR, VSS, VENTILATOR SETTINGS UNCHANGED THROUGHOUT SHIFT. ONE BM NOTED THIS SHIFT. VELASQUEZ CATHETER IN PLACE DRAINING TO GRAVITY. TURNED Q2 HOURS.
--- NOTE | 2022-02-24 07:00 | NUR ---
ASSUME CARE: I have assumed care of this patient.
--- NOTE | 2022-02-24 13:21 | NUR ---
PHONE CALL: Pt's daughter Mckenna was provided a phone update.
--- NOTE | 2022-02-24 13:33 | NUR ---
REPORT: handoff given to LUCY Jacob
--- NOTE | 2022-02-24 14:00 | NUR ---
ASSUMED CARE FROM DL RN PT REPOSITIONED, AND PICC LINE DRESSING CHANGED. PT REMAINS ON SPONT PS 10, 40%FIO2 AND PEEP 5. ALL NEEDS MET AT THIS TIME.
--- NOTE | 2022-02-24 19:53 | NUR ---
ASSUMED CARE PT IS INTUBATED AND SEDATED WITH FENTANYL AND PROPOFOL. PRECEDEX GTT .03MCG/KG/HR. VENT SETTINGS SPONT W/ PEEP 5 AND FI02 40% RR 20-30. LUNGS CLEAR T/O. CREPITUS IN NECK, CHEST, AND LEFT ARM. CHEST TUBE LEFT DISTAL TO WATER SEAL. SEROSANGUINEOUS DRAINAGE NOTED. DRESSING C/D/I. VSS, HYPERTENSION NOTED. SR IN THE 90s. PT DOES NOT FOLLOW COMMANDS, OR OPEN EYES. SPONTAINEOUS MOVEMENT IN ALL EXTREM. GRIMACES WITH ORAL CARE AND PULLS AWAY. VELASQUEZ PATENT AND DRAINING TO GRAVITY. RECTAL TUBE IN PLACE.
[2022-02-25 04:31] LABS: Albumin, Blood 2.3 g/dL (3.4-5.0); Anion Gap 4 mmol/L (6-16); Blood Urea Nitrogen 22 mg/dL (8-24); Bun/Creatinine Ratio 30.9 (12.0-20.0); CO2, Blood 28 mmol/L (21-32); Calcium, Blood 8.3 mg/dL (8.5-10.1); Chloride, Blood 108 mmol/L (98-108); Creatinine, Blood 0.71 mg/dL (0.60-1.20); Glomerular Filtration Rate 100 (60-); Glucose, Blood 143 mg/dL (70-99); Phosphorus, Blood 2.9 mg/dL (2.5-4.9); Potassium, Blood 3.7 mmol/L (3.5-5.5); Sodium, Blood 140 mmol/L (136-145)
--- NOTE | 2022-02-25 06:11 | NUR ---
SHIFT SUMMARY PT REMAINS INTUBATED AND SEDATED WITH PROPOFOL, FENTANYL, AND PRECEDEX. VENT SETTINGS SPONT WITH PEEP 5 AND FI02 40%. LUNG SOUNDS CLEAR T/O. MOD AMOUNT OF THICK WHITE SECRETIONS SUCTIONED. CHEST TUBE TO WATER SEAL. 140ML SEROSANGIOUS OUTPUT. MAX TEMP 100.3. OTHER VSS. PIVOT 1.5 AT GOAL OF 50ML/HR. 30ML Q4 WATER FLUSHES. MOVING ALL EXTRM TO NOXIOUS STIMULI. GRIMACING AND TURNING HEAD AWAY W/ ORAL CARE. NOT FOLLOWING COMMANDS. VELASQUEZ PATENT AND DRAINING TO GRAVITY. RECTAL TUBE IN PLACE.
--- NOTE | 2022-02-25 12:20 | NUR ---
REASSESSMENT PT REMAINS SEDATED AND INTUBATED. SEDATION TURNED OFF FOR AOBUT 90 MIN THIS MORNING AND PT LOOKED LIKE HE WAS TRYING TO OPEN HIS EYES WHEN ASKED, BUT DIDN'T ACTUALLY OPEN THEM. ASKED PT TO SQUEEZE HANDS AND HE SHOOK HIS HEAD BACK AND FORTH IF SAYING NO AND WOULDN'T SQUEEZE. HE WOULDN'T WIGGLE TOES EITHER. SR, BP STABLE. LUNGS CLEAR, MODERATE AMT OF THICK WHITE SECRETIONS VIA ETT. TOLERATING TUBE FEED. PT'S SON VISITED PT AT BEDSIDE AND WAS UPDATED BY DR. CARLSON AND THIS NURSE. CONTINUING TO MONITOR.
--- NOTE | 2022-02-25 16:46 | NUR ---
SHIFT SUMMARY PT REMAINS INTUBATED AND SEDATED. HE WAKES UP WHEN SEDATION IS TURNED DOWN BUT WON'T FOLLOW COMMANDS. HE REMAINED ON PS 10 PEEP 5 THROUGHOUT THE DAY. HE DOES BETTER WHEN LAYING ON HIS R SIDE. WHEN HE IS TURNED TO THE L HIS RR INCREASES TO THE UPPER 20S AND SLOWS AGAIN ONCE TURNED OFF THAT SIDE. SS DRAINAGE FROM THE CHEST TUBE, REMAINS TO WATER SEAL WITH FLUCTUATION PRESENT. SR, BP STABLE. RECTAL TUBE IN PLACE, BUT PT DID HAVE ONE LARGE LEAK AROUND IT TODAY. HIS VELASQUEZ ALSO LEAKED ONCE. FLUSHED THE VELASQUEZ AND IT WAS PATENT AND APPEARS TO BE DRAINING OK CURRENTLY. NO VISITORS OR TC SINCE HIS SON WAS HERE THIS MORNING. CONTINUING TO MONITOR.
--- NOTE | 2022-02-25 19:58 | NUR ---
ASSUMED CARE PT IS INTUBATED AND SEDATED WITH FENTANYL, PROPOFOL AND PRECEDEX. VENT SETTINGS SPONT W/ PEEP 5 AND FIO2 40% RR 20-32. LUNGS CLEAR T/O AND DIM IN BASES. CREPITUS IN LOWER NECK, UPPER CHEST, AND LEFT ARM TO FORARM. LEFT CHEST TUBE TO WATER SEAL DRAINING SEROUS FLUID. DRSG C/D/I. VSS, FEBRILE AT 100.2. SR/ST 90-100's. PT GRIMACING AND TURNING HEAD AWAY W/ ORAL CARE. TRYING TO OPEN EYES WHEN ASKED. DOES NOT SQUEEZE HANDS WHEN ASKED. RESPONDS TO NOXIOUS STIMULI. SPONTANEOUS MOVEMENT IN ALL EXTREMITIES. VELASQUEZ PATENT AND DRAINING TO GRAVITY. RECTAL TUBE IN PLACE.
[2022-02-26 04:00] LABS: BASOPHILS ABSOLUTE AUTO 0.02 K/mm3 (0.00-0.23); BASOPHILS PERCENT AUTO 0 % (0-2); EOSINOPHILS ABSOLUTE AUTO 0.26 K/mm3 (0.00-0.68); EOSINOPHILS PERCENT AUTO 3 % (0-6); Hematocrit 37.2 % (37.0-53.0); Hemoglobin 12.1 g/dL (13.5-17.5); IMMATURE GRAN ABSOLUTE AUTO 0.06 K/mm3 (0.00-0.10); IMMATURE GRAN PERCENT AUTO 1 % (0-1); LYMPHOCYTES ABSOLUTE AUTO 1.17 K/mm3 (0.84-5.20); LYMPHOCYTES PERCENT AUTO 15 % (21-46); MONOCYTES ABSOLUTE AUTO 0.67 K/mm3 (0.16-1.47); MONOCYTES PERCENT AUTO 9 % (4-13); Mean Corpuscular HGB 31.8 pg (26.0-34.0); Mean Corpuscular HGB Conc 32.5 g/dL (31.5-36.5); Mean Corpuscular Volume 98 fL (80-100); Mean Platelet Volume 8.6 fL (9.1-12.4); NEUTROPHILS ABSOLUTE AUTO 5.55 K/mm3 (1.96-9.15); NEUTROPHILS PERCENT AUTO 72 % (41-73); Platelet Count 153 K/mm3 (150-400); RDW Coefficient Variation 13.9 % (11.7-14.2); RDW Standard Deviation 50.1 fL (35.1-46.3); Red Blood Cell Count 3.81 M/mm3 (4.30-5.90); White Blood Cell Count 7.73 K/mm3 (4.00-11.30)
[2022-02-26 04:40] LABS: Albumin, Blood 2.3 g/dL (3.4-5.0); Anion Gap 3 mmol/L (6-16); Blood Urea Nitrogen 23 mg/dL (8-24); Bun/Creatinine Ratio 34.2 (12.0-20.0); CO2, Blood 27 mmol/L (21-32); Calcium, Blood 8.7 mg/dL (8.5-10.1); Chloride, Blood 110 mmol/L (98-108); Creatinine, Blood 0.67 mg/dL (0.60-1.20); Glomerular Filtration Rate 102 (60-); Glucose, Blood 112 mg/dL (70-99); Phosphorus, Blood 3.5 mg/dL (2.5-4.9); Sodium, Blood 140 mmol/L (136-145)
--- NOTE | 2022-02-26 05:58 | NUR ---
SHIFT SUMMARY PT REMAINS INTUBATED AND SEDATED. VENT SETTINGS UNCHANGED T/O SHIFT. PROPOFOL, FENTANYL AND PRECEDEX INFUSING IN MAMADOU PICC. LUNG SOUNDS CLEAR T/O, DIM IN BASES. EXP WHEEZES ON LEFT NOTED 0000 ASSESSMENT. MOD/COPIOUS AMOUNT OF THICK WHITE SECRETIONS SUCTIONED. LEFT LATERAL CHEST TUBE TO WATER SEAL, TIDALING NOTED. 40ML SEROUS OUTPUT. MAX TEMP 100.1. OTHER VSS. PIVOT 1.5 AT GOAL OF 50ML/HR. NOT FOLLOWING DIRECTIONS BUT ATTEMPTED TO OPEN EYES WHEN ASKED. VELASQUEZ PATENT AND DRAINING TO GRAVITY. RECTAL TUBE IN PLACE.
--- NOTE | 2022-02-26 08:56 | NUR ---
Hood of Care: Care assumed at 0700hr. Patient intubated and sedated with propofol gtt at 15mcg/kg/min, precedex gtt at 0.3mcg/kg/hr, and fentanyl gtt at 24mcg/hr. Patient shows facial grimace to noxious stimuli and attempted to open eyes to verbal stimuli. Otherwise not following commands and showing any purposeful movement. Vent to PS of 10/5/40%, tolerating vent without difficulty, VSS. PICC to MAMADOU patent and intact. Vásquez cath patent and intact. Rectal tube patent and intact, draining small amount of liquid brown stool. TF at goal, 0ml residual this morning, no s/s of GI intolerance. Chest to left lateral chest wall to water-seal. No air-leak noted, tidaling with respirations, and small amount (since NOC shift) of serosanguineous fluid noted in collect chamber. Dr. Byrd to room this morning, discussed plan to stop sedation (starting with propofol), possibility of extubation today pending neuro status and respiratory status while off sedation. Propofol placed on stand-by at approx 0800hr. Will continue to monitor.
--- NOTE | 2022-02-26 18:16 | NUR ---
Shift Summary: No significant changes throughout shift. Propofol gtt off for approx 2 1/2hr this morning. Patient able to open eyes and follow simple commands, nod head yes/no. Patient restless while awake not re-directable. Prn fentanyl given with some effect, but patient remained restless. Patient also had copious amounts of thin clear/white secretions, requiring frequent suctioning. Dr. Byrd called to room to assess patient. Decision made to hold extubation and reassess tomorrow. Dr. Byrd also ordered PT prn pain medications. All lines, tubes remain patent and intact. Chest tube remains to water-seal with 50ml output this shift. Will continue to monitor until report to NOC shift RN.
--- NOTE | 2022-02-26 19:15 | NUR ---
ASSUMPTION OF CARE PT REMAINS INTUBATED WITH VENT SETTINGS PC 10/5/40%. RR 16-24 WITH TV 420S-480S. HE IS RECEIVING PROPOFOL 20MCG/KG/MIN, PRECEDEX 0.4MCG/KG/HR AND FENTANYL 5MCG/HR. FACIAL GRIMACING AND HEAD MOVEMENT WITH NOXIOUS STIMULI, PT WITHDRAWS EXTREMITIES FROM PAINFUL STIMULI. L LATERAL SIDE CHEST TUBE TO WATER SEAL, NO AIR LEAK. DRAINING SEROUS FLUID. LUNGS DIMINISHED T/O. TF INFUSING VIA OGT AT GOAL RATE WITH ZERO RESIDUALS. BOWEL TONES ACTIVE. RECTAL TUBE PATENT AND DRAINING LIGHT BROWN LIQUID STOOL TO GRAVITY. VELASQUEZ PATENT AND DRAINING CLEAR YELLOW URINE. SINUS RHTYHM ON MONITOR WITH RATE IN 80S, MAP >65. SEE SHIFT ASSESSMENT.
[2022-02-27 05:30] LABS: Base Excess Venous 1.3 mmol/L; PCO2 Venous 43.5 mmHg (38-42); pH Blood Venous 7.39 (7.34-7.37)
[2022-02-27 05:47] LABS: BASOPHILS ABSOLUTE AUTO 0.03 K/mm3 (0.00-0.23); BASOPHILS PERCENT AUTO 0 % (0-2); EOSINOPHILS ABSOLUTE AUTO 0.34 K/mm3 (0.00-0.68); EOSINOPHILS PERCENT AUTO 4 % (0-6); Hematocrit 38.3 % (37.0-53.0); Hemoglobin 12.2 g/dL (13.5-17.5); IMMATURE GRAN ABSOLUTE AUTO 0.08 K/mm3 (0.00-0.10); IMMATURE GRAN PERCENT AUTO 1 % (0-1); LYMPHOCYTES ABSOLUTE AUTO 1.83 K/mm3 (0.84-5.20); LYMPHOCYTES PERCENT AUTO 23 % (21-46); MONOCYTES ABSOLUTE AUTO 0.36 K/mm3 (0.16-1.47); MONOCYTES PERCENT AUTO 5 % (4-13); Mean Corpuscular HGB 31.8 pg (26.0-34.0); Mean Corpuscular HGB Conc 31.9 g/dL (31.5-36.5); Mean Corpuscular Volume 100 fL (80-100); NEUTROPHILS PERCENT AUTO 67 % (41-73); Platelet Count 180 K/mm3 (150-400); RDW Standard Deviation 51.1 fL (35.1-46.3); Red Blood Cell Count 3.84 M/mm3 (4.30-5.90); White Blood Cell Count 8.04 K/mm3 (4.00-11.30)
[2022-02-27 06:03] LABS: Bun/Creatinine Ratio 38.4 (12.0-20.0); Creatinine, Blood 0.7 mg/dL (0.60-1.20); Magnesium, Blood 2.3 mg/dL (1.6-2.4); Phosphorus, Blood 3.9 mg/dL (2.5-4.9); Potassium, Blood 3.8 mmol/L (3.5-5.5)
--- NOTE | 2022-02-27 06:14 | NUR ---
SHIFT SUMMARY PT REMAINS INTUBATED WITH VENT SETTINGS PC 10/5/40%. RR 19-26, TV 420S-480S. HE IS RECEIVING PROPOFOL 20MCG/KG/MIN, PRECEDEX 0.4MCG/KG/HR, AND FENTANYL GTT 25MCG/HR. FACIAL GRIMACING WITH NOXIOUS STIMULI. WITH PROPOFOL ON STANDBY PT BEGINS COUGHING WITH LARGE AMOUNTS OF THIN CLEAR/WHITE SECRETIONS AND BECOMES RESTLESS. L LATERAL CHEST TUBE REMAINS WATER SEALED, NO AIR LEAK, DRAINING SEROUS FLUID WITH SHIFT OUTPUT 50ML. CREPITUS TO L CHEST. VELASQUEZ PATENT AND DRAINING WITH SHIFT OUTPUT 800ML. TUBE FEEDING INFUSING AT GOAL RATE. RECTAL TUBE REMOVED THIS SHIFT DUE TO NO OUTPUT. VSS THROUGHOUT SHIFT. WILL REPORT TO ONCOMING RN.
--- NOTE | 2022-02-27 07:09 | NUR ---
ASSUMED CARE OF PT AT 0700 PT SEDATED AND INTUBATED. PROP RUNNING AT 20MCG, TKO AT 10 MLS, PRESEDEX AT 0.4, FENT AT 25 MCG. VENT 10/450/5/40%. VITAL HP AT 45 MLS/HR. NO VISITORS AT THIS TIME. SEE ASSESSMENT FOR FURTHER INFORMATION.
--- NOTE | 2022-02-27 08:13 | NUR ---
DR TONEY IN ROOM. PROP AND VITAL HP ON STANDBY AT THIS TIME.
--- NOTE | 2022-02-27 10:05 | NUR ---
PT EXTUBATED AT 0930. CHEST TUBE OUT AT 0945. PT TOLERATING WELL.
--- NOTE | 2022-02-27 12:17 | NUR ---
PT DAUGHTER IN ROOM WITH PT.
--- NOTE | 2022-02-27 18:25 | NUR ---
END OF SHIFT SUMMARY PT EXTUBATED THIS AM. PT HYPERTENSIVE AND SINUS TACHY SINCE EXTUBATION. HR 110-120'S, SBP 180'S. PT CONFUSED AT TIMES, HOWEVER DOES RECOGNIZE FAMILY AND VISITORS THROUGHOUT THE DAY. PT MOANING AND VOICETROUS NONSTOP. PAIN TREATED WITH PRN MEDICATIONS ORDERED AND FENTYNOL PHOTOGRAPHY SPOTTER RUNNING AT 25 MCG. PRODUCTIVE COUGH WITH THICK FRAGOSO SPUTUM PRESENT. FEBRILE WITH 101.9 TEMP, FAN IN ROOM AND TYLENOL SUPPOSITORY GIVEN. TEMP DOWN TO 100.1. VELASQUEZ PATENT AND DRAINING TO GRAVITY. NO BM THIS SHIFT.
--- NOTE | 2022-02-27 19:15 | NUR ---
ASSUMPTION OF CARE PT EXTUBATED TODAY AND ON 2L NC WITH SPO2 >93% AND RR 12-20. HE HAS A PRODUCTIVE COUGH WITH LARGE AMOUNTS OF THICK YELLOW SPUTUM. ENCOURAGED TO USE ORAL SUCTION BUT PT UNABLE TO LIFT ARM TO MOUTH. LUNGS COARSE THROUGHOUT, EXPIRATORY WHEEZE ON L SIDE. RT AT BEDSIDE WITH DUONEB. L LATERAL CHEST TUBE REMOVED TODAY. DRESSING C/D/I. SMALL AMOUNT OF CREPITUS PALPABLE ON L CHEST/SHOULDER AREA. PT IS A&OX3. HE REMAINS DROWSY AND SLOW TO RESPOND. EXTREMITIES VERY WEAK BUT PT MAKES PURPOSEFUL MOVEMENTS, SQUEEZES HANDS AND WIGGLES TOES. C/O CHRONIC BACK PAIN, MEDICATED PER EMAR. TEMP 100.2. BLANKETS REMOVED, FAN AND ICE PACKS IN PLACE. HE IS HYPERTENSIVE WITH SBP 180S, MEDICATED PER EMAR. SINUS RHTYHM WITH RATE IN 90S ON MONITOR, STRONG PULSES. VELASQUEZ PATENT AND DRAINING CLEAR/YELLOW URIEN TO GRAVITY. BED IN LOW POSITON, BED ALARM ON, AND CALL LIGHT WITHIN REACH. SEE SHIFT ASSESSMENT.
--- NOTE | 2022-02-27 21:36 | NUR ---
UPDATE PT CONTINUES TO HAVE BACK PAIN DESPITE REPOSITIONIG AND MEDICATION. PT ASKS "TO GO TO HIS ROOM" AND HE STS "I WANT TO SLEEP IN MY BED". HE FREQUENTLY PUTS LEGS OVER THE EDGE OF [facility] BED AND STS "I'M GETTING UP". DIFFICULTY REORIENTING PT TO UNIT AND ROOM. HE REMAINS HYPERTENSIVE WITH SBP >180. DR FARFAN CONSULTED. PLAN TO RESTART PRECEDEX. BED IN LOW POSITION, BED ALARM ON, CALL LIGHT WITHIN REACH.
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
[2022-02-28 05:40] LABS: BASOPHILS ABSOLUTE AUTO 0.04 K/mm3 (0.00-0.23); BASOPHILS PERCENT AUTO 0 % (0-2); EOSINOPHILS ABSOLUTE AUTO 0.42 K/mm3 (0.00-0.68); EOSINOPHILS PERCENT AUTO 4 % (0-6); Hematocrit 40.9 % (37.0-53.0); Hemoglobin 13.3 g/dL (13.5-17.5); IMMATURE GRAN ABSOLUTE AUTO 0.07 K/mm3 (0.00-0.10); IMMATURE GRAN PERCENT AUTO 1 % (0-1); LYMPHOCYTES ABSOLUTE AUTO 1.65 K/mm3 (0.84-5.20); LYMPHOCYTES PERCENT AUTO 17 % (21-46); MONOCYTES ABSOLUTE AUTO 0.59 K/mm3 (0.16-1.47); MONOCYTES PERCENT AUTO 6 % (4-13); Mean Corpuscular HGB 31.1 pg (26.0-34.0); Mean Corpuscular HGB Conc 32.5 g/dL (31.5-36.5); Mean Corpuscular Volume 96 fL (80-100); Mean Platelet Volume 8.8 fL (9.1-12.4); NEUTROPHILS ABSOLUTE AUTO 7.19 K/mm3 (1.96-9.15); NEUTROPHILS PERCENT AUTO 72 % (41-73); Platelet Count 219 K/mm3 (150-400); RDW Coefficient Variation 13.4 % (11.7-14.2); RDW Standard Deviation 47.6 fL (35.1-46.3); Red Blood Cell Count 4.27 M/mm3 (4.30-5.90); White Blood Cell Count 9.96 K/mm3 (4.00-11.30)
--- NOTE | 2022-02-28 05:57 | NUR ---
SHIFT SUMMARY PT HAS BEEN AWAKE AND RESTLESS MOST OF THE NIGHT. HE IS A&OX3 WITH EPISODES OF CONFUSION. PT CALM AND COOPERATIVE AT THIS TIME. PRECEDEX AT 04MCG/KG/HR. HE CONTINUES TO HAVE A PRODUCTIVE COUGH WITH SMALL AMOUNT OF YELLOW SPUTUM. LUNG SOUNDS COARSE WITH RHONCHI THROUGHOUT. L LATERAL CHEST TUBE SITE DRESSING C/D/I. HE IS ON 2L NC WITH SPO2 >93% AND RR 15-24. BOWEL TONES HYPOACTIVE, ABDOMEN SOFT TO PALPATION. PT STILL APPEARS DROWSY AND DID NOT PERFORM SWALLOW EVAL DUE TO ASPIRATION RISK. VELASQUEZ PATENT AND DRAINING CLEAR YELLOW URINE TO GRAVITY WITH SHIFT OUTPUT OF 1950ML. PICC TO RA. TMAX 100.2, CURRENT TEMP 99.7. PT CONTINUES TO C/O BACK AND L SIDE PAIN DESPITE REPOSITIONING AND MEDICATION. SINUS RHTYHM ON MONITOR WITH RATE 70S. PT HAS BEEN HYPERTENSIVE MOST OF THE SHIFT, MEDICATED MULTIPLE TIMES PER EMAR. WILL REPORT TO ONCOMING RN.
[2022-02-28 06:08] LABS: Bun/Creatinine Ratio 38.4 (12.0-20.0); Calcium, Blood 9.7 mg/dL (8.5-10.1); Creatinine, Blood 0.63 mg/dL (0.60-1.20); Potassium, Blood 3.9 mmol/L (3.5-5.5)
--- NOTE | 2022-02-28 08:07 | NUR ---
Care Assumed 0700 Pt on precedex 0.2 mcg/kg/hr and Fentanyl 25 mcg/hr EDUCATIONAL MANAGER, infusing via right upper arm PICC. Precedex titerated from 0.4 to 0.2 mcg/kg/hr, pt unable to state correct location but states correct date/year. Drowsy and slow to respond. States having left sided pain, worsened during turns, treated per emar. Unable to currently complete bedside swallow eval due to mentation. Pt follows directions, moves lower extrems and weak upper consulting marine engineer. On 2 L via NC, LS corse, creptius to left upper chest. Productive cough. Hyptensive SBP (170-180'S), will treat per emar. Left side chest tube site has C/D/I dressing. Vásquez in place with 350 ml of yellow/clear urine.
--- NOTE | 2022-02-28 10:13 | NUR ---
Update- Provider visit Dr. Gutierrez at bedside. New orders recieved for labetalol 20 mg, first dose now for HTN. Precedex titerated off. Pt able to state correct location now but continues to be drowsy. Fentanyl DERRICK HELPER in place for pain.
--- NOTE | 2022-02-28 13:34 | NUR ---
Update- Pt hypertensive and pulling off stickers/leads. Moving all extrems but following directions infrequently. Precedex remains on SB. Dr. Gutierrez called and recieved order for Ativan 2 mg one time dose.
--- NOTE | 2022-02-28 14:33 | NUR ---
Update-increased confusion Pt has increased confusion, possible visual hallucations - pointing outside window but unable to understand what patient is saying. Currently mumbaling. Hypertensive (SBP 180's) and tachycardia (HR 90's). Dr. Gutierrez made aware and new order for Ativan recieved. Precedex reamins on SB.
--- NOTE | 2022-02-28 15:16 | NUR ---
Update- Provider visit Dr. Morales in to see patient. Updated on pt care and recieved new orders for PT/OT eval. Dr. Gutierrez in to see patient and recieved new orders for decreasing Fentanyl TRAVERTINE INSTALLER GTT, see emar.
--- NOTE | 2022-02-28 17:08 | NUR ---
Family at bedside Son, daughter and daughters spouse at bedside. Patient with increased agitation at this time. All family questions answered and Dr. Gutierrez updated patients son.
--- NOTE | 2022-02-28 19:42 | NUR ---
Bedside report given to oncoming nurse. No other changes since last note.
--- NOTE | 2022-02-28 20:47 | NUR ---
ASSUMED CARE. ALERT AND VERY VERBAL BUT SPEECH IS GARBLED AND DIFFICULT TO UNDERSTAND AT TIMES. COOPERATIVE BUT AT TIMES CAN BECOME MEAN, CURSING AND BEING VERY DEMANDING. STATES PAIN IS THE SAME, DID GIVE ROXINAL AT WHICH HE SWALLOWED FINE. ATTEMPTED SOME THICKEN WATER WHICH DID WELL WITH BUT HE REFUSED TO GO FURTHER. GETS VERY AGGRIVATED WITH STATUE OUTSIDE OF THE WINDOW. BLOOD PRESSURE HAS IMPROVED SLIGHTLY WITH GIVING ROXINAL. LS COARSE WITH SOME CREPITIUS ON THE LEFT. LEFT CHEST WALL DRESSING CDI. TRACE EDEMA TO BLE. HR SINUS RATE 90'S. BP 160'S-180'S, WILL MONITOR. VELASQUEZ PATENT AND DRAINING. FENTANYL CLINICAL TRIALS ASSISTANT INFUSING AT 12MCQ/HR, AND TKO. BED IN LOW POSITION, CALL LIGHT IN REACH AND BED ALARM IS ON.
--- NOTE | 2022-02-28 21:15 | NUR ---
TINA WAS GETTING VERY AGGITATED ASKING FOR A PISTOL OR MACHINE GUN STATING "I SAW YOU LOAD IT" BLOOD PRESSURE WAS UP TO 190'S, WAS KICKING HIS LEGS OUT OF THE BED WANTING TO GET UP. GAVE 50MCQ OF FENTANYL AND LOBETOLOL. BP NOW DOWN TO 166/89. HE IS STARTING TO RELAX SOME. WILL CONTINUE TO MONITOR.
[2022-03-01 04:16] LABS: Hematocrit 43.4 % (37.0-53.0); Hemoglobin 14.6 g/dL (13.5-17.5); Mean Corpuscular HGB 31.7 pg (26.0-34.0); Mean Corpuscular HGB Conc 33.6 g/dL (31.5-36.5); Mean Corpuscular Volume 94 fL (80-100); Mean Platelet Volume 8.7 fL (9.1-12.4); Platelet Count 263 K/mm3 (150-400); RDW Standard Deviation 45.2 fL (35.1-46.3); White Blood Cell Count 11.72 K/mm3 (4.00-11.30)
[2022-03-01 04:33] LABS: Bun/Creatinine Ratio 33.6 (12.0-20.0); Calcium, Blood 9.4 mg/dL (8.5-10.1); Creatinine, Blood 0.71 mg/dL (0.60-1.20); Potassium, Blood 3.9 mmol/L (3.5-5.5)
--- NOTE | 2022-03-01 05:52 | NUR ---
SHIFT SUMMARY: AOX1, CONFUSED ABOUT TIME, PLACE AND EVENT. HAD OFF AND ON AGGIATTION AND AGGRESSION AT START OF SHIFT THAT RESOLVED AFTER GETTING PAIN MEDICATION. LS COARSE T/O, OCCATIONALLY WILL HAVE RHONCI THAT CLEARED WITH COUGH. COUGH IS MOIST NON-PRODUCTIVE. 2L NC TO KEEP SATS GREATER THAN 90%. SINUS TO SINUS TACH ON MONITOR, HIGHEST RATE 100'S. HYPERTENSIVE WITH AVERAGE SBP 160'S. GAVE LABATELOLX1. FENTANYL AGRICULTURAL EDUCATION TEACHER CONINUED TO INFUSE AT 12MCQ, GAVE PRN FENTANYL 50MCQ X2. VELASQUEZ OUTPUT 1100 CC. NO BM THIS SHIFT. SKIN REMAINED UNCHANGED. WILL REPORT TO DAYSHIFT. CALL LIGHT IN REACH.
--- NOTE | 2022-03-01 09:13 | NUR ---
ASSUMED CARE BEDSIDE REPORT FROM ROSA AYALA AT 0700. PT RESTING IN BED. OPENS EYES TO VERBAL STIMULI. GARBLED SPEECH, DIFFICULT TO UNDERSTAND. ORIENTED TO SELF. UNABLE TO STATE LOCATION BUT WHEN RN'S DISCUSSING BOWEL CARE, PT STATES THAT HE TYPICALLY TAKES SUPPOSITORIES. FOLLOWS SIMPLE COMMANDS BUT APPEARS TO RETURN TO SLEEP WHEN UNDISTURBED. LUNGS COARSE THROUGHOUT. 2L VIA NC. WET NON PRODUCTIVE COUGH. DRESSING INTACT TO LEFT LATERAL WALL S/P CHEST TUBE REMOVAL. CREPITUS TO LEFT CHEST WALL. ABD ROUND, SOFT, NON TENDER. BT X 4. VELASQUEZ PATENT, DRAINING CLEAR YELLOW URINE TO GRAVITY. PICC TO RUE, DRESSING C/D/I. WILL CONTINUE TO MONITOR.
--- NOTE | 2022-03-01 17:35 | NUR ---
SHIFT SUMMARY PT ORIENTED TO SELF ONLY AT THIS TIME. MENTATION HAS WAXED AND WANED THIS SHIFT. OCCASIONAL HALLUCINATIONS. REPORTS SEEING MY SISTER IN ROOM. ABLE TO REDIRECT. REMAINS ON 2L VIA NC. COUGH HAS GOTTEN STRONGER, ABLE TO BRING SECRETIONS UP. LUNGS COARSE. DOBHOFF PLACED THIS SHIFT AND MED GIVEN BUT PT PULLED OUT THIS EVENING. DR SESAY AWARE. OK TO REMAIN s TUBE UNTIL TOMORROW. VELASQUEZ PATENT, DRAINED 700 ML CLEAR YELLOW URINE TO GRAVITY. STATUS CHANGED TO PCU THIS SHIFT. WORKED c PT/OT AND SPEECH, FAILED SPEECH EVAL, REMAINS NPO. WILL CONTINUE TO MONITOR UNTIL REPORT TO ONCOMING NURSE.
--- NOTE | 2022-03-01 19:35 | NUR ---
ASSUMPTION OF CARE BEDSIDE REPORT GIVEN PER DAY RN. PT NOTED TO BE RESTLESS IN BED AND MOANING. PT IS PLEASANTLY CONFUSED AT THIS TIME. PT RECENTLY HAD A DH TUBE PLACED BUT REMOVED THIS EVENING. PLAN TO REASSESS IN THE MORNING. MD AWARE. PT IS WEARING NASAL CANNULA AND BREATHING IS NOTED TO BE SHALLOW BUT UNLABORED. WET, WEAK COUGH NOTED. ENCOURAGED PT IN DEEP BREATHE/COUGH, AND IS USE. PT UNABLE TO PERFORM AT THIS TIME. PRN PAIN MEDICATION TO BE GIVEN TO PT. PT IS SAFE WITH SIDERAILS UP X3, BED IN LOW POSITION AND LOCKED. PT EDUCATED TO USE CALL LIGHT. WILL MONITOR PT CLOSELY.
--- NOTE | 2022-03-01 21:25 | NUR ---
PROVIDER NOTIFICATION PT REMOVED DH TUBE PRIOR TO PM SHIFT. DR MONTES RETURNED CALL FROM THIS RN AND NOTIFIED MD OF PT BEING UNABLE TO TOLERATE PO MEDS DUE TO FAILED SWALLOW STUDY AND PT REMOVAL OF DH TUBE. PROVIDER OK WITH USE OF PRN LABETALOL FOR HIS HTN TONGIHT AND PRN FENT FOR PAIN AND TO TRY DH TUBE PLACEMENT IN AM. WILL MONITOR PT FOR RESPONSE TO THESE MEDS.
--- NOTE | 2022-03-02 | NUR ---
FOLLOW UP ASSESSMENT PT AWAKE IN BED WITH VSS AND SOME AGITATION. PT HAS NOT BEEN ABLE TO RECEIVE PO MEDS DUE TO HIS REMOVAL OF DH TUBE. PT GIVEN ZYPREXA IM PER EMAR INSTRUCTION FOR AGITATION. PT TOLERATED THIS WELL. PT REPOSITIONED IN BED WITH ASSIST. PT NOTED TO HAVE GOOD URINE OUTPUT. VITALS HAVE BEEN STABLE OTHER THAN SOME HTN WHICH PT HAS PRN LABETALOL FOR THIS. PT REMAINS CONFUSED BUT WORDS ARE COMING OUT MORE CLEARLY. PT STILL FOLLOWING COMMANDS AND OPENING EYES SPONATNEOUSLY. WILL CONTINUE TO MONITOR.
[2022-03-02 03:57] LABS: BASOPHILS ABSOLUTE AUTO 0.06 K/mm3 (0.00-0.23); BASOPHILS PERCENT AUTO 1 % (0-2); EOSINOPHILS ABSOLUTE AUTO 0.35 K/mm3 (0.00-0.68); EOSINOPHILS PERCENT AUTO 3 % (0-6); Hematocrit 43.5 % (37.0-53.0); Hemoglobin 14.4 g/dL (13.5-17.5); IMMATURE GRAN ABSOLUTE AUTO 0.13 K/mm3 (0.00-0.10); IMMATURE GRAN PERCENT AUTO 1 % (0-1); LYMPHOCYTES ABSOLUTE AUTO 2.27 K/mm3 (0.84-5.20); LYMPHOCYTES PERCENT AUTO 20 % (21-46); MONOCYTES PERCENT AUTO 5 % (4-13); Mean Corpuscular HGB 31.2 pg (26.0-34.0); Mean Corpuscular HGB Conc 33.1 g/dL (31.5-36.5); Mean Corpuscular Volume 94 fL (80-100); Mean Platelet Volume 8.7 fL (9.1-12.4); NEUTROPHILS ABSOLUTE AUTO 7.74 K/mm3 (1.96-9.15); NEUTROPHILS PERCENT AUTO 69 % (41-73); Platelet Count 273 K/mm3 (150-400); RDW Standard Deviation 44.7 fL (35.1-46.3); Red Blood Cell Count 4.61 M/mm3 (4.30-5.90); White Blood Cell Count 11.15 K/mm3 (4.00-11.30)
[2022-03-02 04:12] LABS: Albumin, Blood 2.8 g/dL (3.4-5.0); Anion Gap 5 mmol/L (6-16); Blood Urea Nitrogen 26 mg/dL (8-24); Bun/Creatinine Ratio 35.2 (12.0-20.0); CO2, Blood 29 mmol/L (21-32); Calcium, Blood 9.7 mg/dL (8.5-10.1); Chloride, Blood 105 mmol/L (98-108); Creatinine, Blood 0.74 mg/dL (0.60-1.20); Glomerular Filtration Rate 99 (60-); Glucose, Blood 89 mg/dL (70-99); Phosphorus, Blood 3.6 mg/dL (2.5-4.9); Potassium, Blood 3.8 mmol/L (3.5-5.5); Sodium, Blood 139 mmol/L (136-145)
--- NOTE | 2022-03-02 04:45 | NUR ---
FOLLOW UP ASSESSMENT PT APPEARS TO BE SLEEPING IN BED COMFORTABLY WEARING 2LNC. THE IM ZYPREXA THE PT WAS GIVEN FOR AGITATION HAS WORKED WELL IN CALMING PT. VITALS HAVE REMAINED STABLE AND PT APPEARS COMFORTABLE. PT POSITION CHANGED WITH ASSIST DUE TO DECONDITIONED STATUS. PT REMAINS CONFUSED BUT PT REORIENTED EACH INTERACTION. PT NOTED TO HAVE A LOW GRADE TEMP THIS EVENING, BUT NEVER ABOVE 99.7.GOOD UOP NOTED, CLEAR YELLOW. WILL CONTINUE TO MONITOR.
--- NOTE | 2022-03-02 06:33 | NUR ---
END OF SHIFT SUMMARY PT HAS RESTED COMFORTABLY OVERNIGHT IN BED EXCEPT FOR ONE EPISODE IN THE NIGHT WITH NOTICEABLE AGITATION. PT WAS UNABLE TO RECEIVE ORDERED SEROQUEL AND PO PAIN MEDS BECAUSE THE PT REMOVED HIS DH TUBE PRIOR TO 7P SHIFT. HE RECEIVED ONE DOSE OF IM ZYPREXA FOR AGITATION. THE PT TOLERATED THIS WELL AND ALLOWED FOR A FEW HOURS OF SLEEP. PT RECEIVING FLUIDS AT TKO, WEARING 2L NC. VELASQUEZ OUTPUT ADEQUATE FOR THE SHIFT. PLAN TO PLACE DH TUBE IN THE AM TO ALLOW FOR PROPER NUTRITION SINCE PT IS NOT PASSIING SWALLOW EVALS AT THIS TIME. VITALS ARE STABLE. WILL CONTINUE TO [id number].
--- NOTE | 2022-03-02 07:59 | NUR ---
RECEIVED PT AT 0700 THIS AM. PT VERY SLEEPY, DIFFICULT TO AROUSE. IV TKO, NC @ 2L, VELASQUZE TO GRAVITY DRAINAGE. NOT FOLLOWING COMMANDS, TOO SLEEPY. SEE ASSESSMENT FOR DETAILS.
--- NOTE | 2022-03-02 11:27 | NUR ---
TUBE FEEDING RESTARTED AT 25ML/HR VIA DOBBHOFF TUBE. DIFFICULT TUBE PLACEMENT VERIFIED BY XRAY. PT BRIEFLY RESTRAINED, PT ANSWERS QUESTIONS APPROPRIATELY, ie MONTH, YEAR, LOCATION. AM MEDS REQUESTED FROM PHARMACY. PT BEING COOPERATIVE AT THIS TIME.
--- NOTE | 2022-03-02 16:34 | NUR ---
PONCHO HAS BEEN VERY SOMNOLENT MOST OF THE DAY, HE HASN'T AWAKENED FOR S/T OR FOR P/T. HE IS DIFFICULT TO AROUSE AND COMMUNICATE WITH. HIS AFTERNOON PAIN MED WAS HELD D/T THIS. HE IS MORE RESTLESS NOW, ANSWERING QUESTIONS SOME. TF REMAINS GOING @ 30ML TIL 2199 THEN WILL INCREASE TO 50ML. BP IMPROVED SINCE ABLE TO GET MEDS DOWN. VELASQUEZ CONT TO GRAVITY.
--- NOTE | 2022-03-02 16:46 | NUR ---
SON AND DAUGHTER AND GRANDDAUGHTER IN TO SEE HIM, HE IS MORE CUSTOMER SERVICE AND SALES CONSULTANT, TRYING TO MAKE JOKES WITH THEM. WINKING AT HIS DAUGHTER. STILL DIFFICULT TO UNDER- STAND HIS WORDS, HAS TO REPEAT HIMSELF. SAT MORE UPRIGHT FOR HIS VISIT WITH THE FAMILY.
--- NOTE | 2022-03-02 18:39 | NUR ---
PONCHO HAS BEEN NEARLY SOMNOLENT MOST OF THE SHIFT, HE "WOKE UP" AROUND 1700 WITH HIS FAMILY AT THE BEDSIDE, WAS ENGAGING AND JOKING WITH THEM. WHEN ASKED ABOUT PAIN DENIED, ALTHOUGH HE DOES GRIMACE WITH COUGHING. HE HAS MOIST, WET PRODUCTIVE COUGH THAT IS PRODUCTIVE, USUALLY SWALLOWS. ORAL CARE DONE Q4 WITH GOOD ASSIST FROM PATIENT, TURNED Q2, PT STARTING TO MOVE HIMSELF SOME. DOBB- FRANK REMAINS IN PLACE WITH TF @ 30ML/HR, DUE TO INCREASE AT 2200.
--- NOTE | 2022-03-02 19:15 | NUR ---
ASSUMPTION OF CARE NOTE REPORT RECEIVED AT THE BEDSIDE FROM LUCY GREEN. PT APPEARS DROWSY IN BED. PT HAD A NEW DH TUBE PLACED TODAY AND IS RECEIVING TUBE FEEDINGS THROUGH THIS. AT 2200 PT TF RATE WILL BE INCREASED TO 50ML/HR. PT HAS NASAL CANNULA IN PLACE AND IS NOTED TO HAVE A WEAK, WET COUGH. EDUCATED PT ON IMPORTANCE OF DEEP BREATHING AND COUGHING; ESPECIALLY IN THE SETTING OF HIS FALL AND BROKEN RIBS. WILL ATTEMPT TO EDUCATE HIM ON HOW TO PERFORM HIS IS. VELASQUEZ PATENT AND SECURE DRAINING CLEAR YELLOW URINE. VITALS ARE STABLE AT THIS TIME. TKO INFUSING THROUGH MAMADOU PICC. WILL CONTINUE TO MONITOR.
--- NOTE | 2022-03-02 22:20 | NUR ---
PHYSICIAN NOTIFICATION PT BP DROPPED TO 60S/50S. PT STILL MENTATING AND ABLE TO TALK TO ME. DR MARIE, HOSPITALIST BROOD HATCHERY MANAGER, CALLED AND ORDER WAS GIVEN FOR A 1 TIME 500ML NS BOLUS. BLOOD PRESSURE IMPROVED SIGNIFICANTLY WITH THE NS BOLUS. WILL CONTINUE TO MONITOR PT.
[2022-03-03 03:52] LABS: BASOPHILS ABSOLUTE AUTO 0.04 K/mm3 (0.00-0.23); BASOPHILS PERCENT AUTO 0 % (0-2); EOSINOPHILS ABSOLUTE AUTO 0.42 K/mm3 (0.00-0.68); EOSINOPHILS PERCENT AUTO 4 % (0-6); Hematocrit 42.2 % (37.0-53.0); Hemoglobin 14.1 g/dL (13.5-17.5); IMMATURE GRAN PERCENT AUTO 1 % (0-1); LYMPHOCYTES PERCENT AUTO 20 % (21-46); MONOCYTES ABSOLUTE AUTO 0.53 K/mm3 (0.16-1.47); MONOCYTES PERCENT AUTO 6 % (4-13); Mean Corpuscular HGB 31.8 pg (26.0-34.0); Mean Corpuscular HGB Conc 33.4 g/dL (31.5-36.5); Mean Corpuscular Volume 95 fL (80-100); Mean Platelet Volume 8.7 fL (9.1-12.4); NEUTROPHILS ABSOLUTE AUTO 6.62 K/mm3 (1.96-9.15); NEUTROPHILS PERCENT AUTO 69 % (41-73); Platelet Count 258 K/mm3 (150-400); RDW Standard Deviation 45.2 fL (35.1-46.3); Red Blood Cell Count 4.44 M/mm3 (4.30-5.90); White Blood Cell Count 9.61 K/mm3 (4.00-11.30)
[2022-03-03 04:12] LABS: Albumin, Blood 2.7 g/dL (3.4-5.0); Anion Gap 4 mmol/L (6-16); Blood Urea Nitrogen 28 mg/dL (8-24); Bun/Creatinine Ratio 32.9 (12.0-20.0); CO2, Blood 30 mmol/L (21-32); Chloride, Blood 109 mmol/L (98-108); Creatinine, Blood 0.85 mg/dL (0.60-1.20); Glomerular Filtration Rate 95 (60-); Glucose, Blood 130 mg/dL (70-99); Potassium, Blood 3.3 mmol/L (3.5-5.5); Sodium, Blood 143 mmol/L (136-145)
--- NOTE | 2022-03-03 06:36 | NUR ---
SHIFT SUMMARY PT HAS REMAINED STABLE OVERNIGHT OTHER THAN ONE EPISODE OF HYPOTENSION THAT WAS QUICKLY RESOLVED BY IV NS 500ML BOLUS. PT RESTING COMFORTABLY ON 2-3 L NC. PT HAS BEEN CONFUSED MOST OF THE NIGHT BUT WAS DROWSY BUT ORIENTED UNTIL LATER IN THE NIGHT. PT RECEIVED MEDS PER DH TUBE AND RECEIVED TF, WHICH IS NOW AT THE GOAL OF 50ML/HR THROUGH DH TUBE. PT HAS HAD ADEQUATE UOP THIS SHIFT. K+ REPLACED THIS MORNING WITH 40 MEQ IN 250 NS. REPORT GIVEN TO AM NURSE WHEN AVAILABLE. WILL CONTINUE TO MONITOR.
--- NOTE | 2022-03-03 07:10 | NUR ---
ASSUMED CARE OF PT AT 0700 PT SLEEPING IN ROOM WITH NO VISITORS AT THIS TIME. K+ RUNNING WITH TKO ON STANDBY. TF RUNNING AT 50 MLS/HR. VELASQUEZ CATH DRAINING TO GRAVITY. SEE ASSESSMENT FOR FURTHER INFORMATION.
--- NOTE | 2022-03-03 14:40 | NUR ---
PT TRANSFERED TO PCU 07 FROM ICU 13. PT TX'D IN A CHAIR. WHEN INITAL VS WERE TAKEN THE PT WAS HYPOTENSIVE. CALLED AND ORDERED A 500ML BOLUS OF NSS. BP STBALE AFTER BOLUS. WHEN TRYING TO GET THE PT BACK INTO BED WE WERE UNSUCCESSFUL W/ 3 PEOPLE. PT WILL BE MOVED TO PCU 4 FOR ALIFT ROOM. PT NEEDS A LIFT FOR TRANSFERINING. HIS NG TUBE WAS D/C'D AND THE PT IS ON A PUREE DIET AND REQUIRES FEEDING. PT BACK IN BED NOW AND IS RESTING. HE IS ALERT AND ONLY ORIENTED TO SELF AND SURROUNDINGS.
--- NOTE | 2022-03-03 21:30 | NUR ---
PT UPDATE UPON ASSESSMENT, PT FOUND TO BE HYPOTENSIVE. PER REPORT PT PREVIOUSLY HYPOTENSIVE DURING DAY SHIFT AND RESPONDED WELL TO NS BOLUS. CALL PLACED TO MD HALE. MD HALE W/ ORDERS FOR 1L NS BOLUS AND NS MAINTENECE FLUID FOLLOWING BOLUS.
[2022-03-04 04:50] LABS: BASOPHILS ABSOLUTE AUTO 0.08 K/mm3 (0.00-0.23); BASOPHILS PERCENT AUTO 1 % (0-2); EOSINOPHILS ABSOLUTE AUTO 0.41 K/mm3 (0.00-0.68); EOSINOPHILS PERCENT AUTO 5 % (0-6); Hematocrit 39.3 % (37.0-53.0); Hemoglobin 12.6 g/dL (13.5-17.5); IMMATURE GRAN PERCENT AUTO 1 % (0-1); LYMPHOCYTES ABSOLUTE AUTO 2.52 K/mm3 (0.84-5.20); LYMPHOCYTES PERCENT AUTO 29 % (21-46); MONOCYTES ABSOLUTE AUTO 0.46 K/mm3 (0.16-1.47); MONOCYTES PERCENT AUTO 5 % (4-13); Mean Corpuscular HGB 31.3 pg (26.0-34.0); Mean Corpuscular HGB Conc 32.1 g/dL (31.5-36.5); Mean Corpuscular Volume 98 fL (80-100); Mean Platelet Volume 8.8 fL (9.1-12.4); NEUTROPHILS ABSOLUTE AUTO 5.22 K/mm3 (1.96-9.15); NEUTROPHILS PERCENT AUTO 59 % (41-73); Platelet Count 249 K/mm3 (150-400); RDW Coefficient Variation 13.2 % (11.7-14.2); Red Blood Cell Count 4.02 M/mm3 (4.30-5.90); White Blood Cell Count 8.79 K/mm3 (4.00-11.30)
[2022-03-04 05:13] LABS: Albumin, Blood 2.6 g/dL (3.4-5.0); Anion Gap 3 mmol/L (6-16); Blood Urea Nitrogen 28 mg/dL (8-24); Bun/Creatinine Ratio 33.5 (12.0-20.0); CO2, Blood 28 mmol/L (21-32); Calcium, Blood 9.1 mg/dL (8.5-10.1); Chloride, Blood 112 mmol/L (98-108); Creatinine, Blood 0.84 mg/dL (0.60-1.20); Glomerular Filtration Rate 95 (60-); Glucose, Blood 97 mg/dL (70-99); Phosphorus, Blood 3.6 mg/dL (2.5-4.9); Sodium, Blood 143 mmol/L (136-145)
--- NOTE | 2022-03-04 06:15 | NUR ---
SHIFT SUMMARY PT ALERT, AGITATED AT START OF SHIFT. CONFUSED. STATED HE WANTED TO GO HOME. MEDICATED W/ PRN ZYPREXA X1. SOFT BP SEE PREVIOUS NOTE. PT SOUNDED WHEEZY DURING AM VITALS. RT IN ROOM FOR BREATHING TX. VSS NOW. PT MEDICATED FOR BACK PAIN PER EMAR. VELASQUEZ CATHETER DRAINING TO GRAVITY. NO BM THIS SHIFT. DAUGHTER CALLED DURING SHFIT FOR UPDATE, SPOKE TO HER, DAUGHTER TO VISIT IN AM. CALL LIGHT IN REACH.
--- NOTE | 2022-03-04 17:02 | NUR ---
SHIFT SUMMARY: PT MORE ALERT AND ORIENTED THIS SHIFT. ABLE TO RECOGNIZE FAMILY AND HOLD CONVERSATION, FORGETFUL AT TIMES. BP STABLE, HR SR 90'S, AFEBRILE, SATING >94% ON 2L NC. PT WORKED WITH OT/PT THIS AFTERNOON, ABLE TO GET IN CHAIR WITH TWO PERSON MAX ASSIST. VELASQUEZ CATH IN PLACE DRAINING DARK YELLOW URINE TO GRAVITY, 1100 ML OUTPUT. NO BM THIS SHIFT. NS GTT @125 IN [place]. LUNG SOUNDS CLEAR IN UPPER, DIMINISHED IN BASES. MEDICATED Q6 FOR CHRONIC BACK PAIN, SEE EMAR. FAMILY IN THIS MORNING AND UPDATED ON PT CARE. PT CURRENTLY SITTING UP EATING DINNER. BED IN LOW, CALL LIGHT IN REACH.
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
--- NOTE | 2022-03-05 17:03 | NUR ---
SHIFT SUMMARY: PT ALERT AND ORIENTED X1 THIS AM, STARTED TO CLEAR AFTER MORNING ASSESSMENT. ABLE TO STATE NAME, , WHERE HE WAS. ABLE TO HOLD CONVERSATION AND DISCUSS HIS "FAVORITE PLACES TO EAT IN [place]". NO HALLUCINATIONS OR EPISODES OF IRRTABILITY THROUGHOUT SHIFT. BP STABLE. HR SR 70'S, AFEBRILE, PT SATING >95% ON 2L NC. VELASQUEZ CATH IN PLACE PATENT, DRAINING YELLOW URINE TO GRAVITY. NO BM. PT WORKED WITH OT/PT TODAY. 2 PERSON MAX ASSIST RECOMMENDED. SPEECH THERAPY IN THIS AM, ADVANCED DIET TO MECH SOFT, PILLS WHOLE IN APPLESAUCE, TOLERATED WELL. PT CHANGED TO MED TELE THIS AFTERNOON. CURRENTLY IN BED, EATING DINNER. BED IN LOW, ALARM ON, CALL LIGHT IN REACH
--- NOTE | 2022-03-05 18:13 | NUR ---
TRANSFER: PT TRANSFERRED TO ROOM [id number] @[id number]. REPORT GIVEN TO ELKE Agrawal RN
--- NOTE | 2022-03-05 18:40 | NUR ---
PATIENT ARRIVED TO MEDICAL FLOOR A PCU TRANSFER. HE IS CONFUSED, BED ALARM ON. PT REPORTS HE MUST HAVE A BOWEL MOVEMENT, BED APPIAH OFFERED TWICE, UNSUCCESSFULLY. PT APOLOGIZES FOR HIS TONE OF VOICE, HE IS AT TIMES IRRITABLE AND AT TIMES APOLOGETIC. COOPERATIVE AND FOLLOWS DIRECTIONS, ALTHOUGH HE IS IMPULSIVE. TELEMETRY ON. IV FLUIDS CONNECTED TO PICC LINE IN RIGHT UPPER ARM. OXYGEN AT 2LPM VIA NC. REPORT WILL BE GIVEN TO NIGHT NURSE.
--- NOTE | 2022-03-06 05:44 | NUR ---
NURSE NOTE/ SHIFT SUMMARY: PT REMAINS CONFUSED THROUGHOUT THE NIGHT. AT THE BEGINNING OF SHIFT APPROXIMATELY 2044 PT BECAME SUDDENLY AGGITATED. BEGAN SCREAMING AT STAFF, ATTEMPTING TO GET OUT OF BED WHILE SWINGING FISTS AT STAFF AND ALMOST CAUSING HIMSELF TO FALL. PATIENT TORE THE IV TUBING CONNECTED TO PICC FOR FLUIDS AND PUSHED BEDSIDE TABLE AT NURSING STAFF. STAFF ASSIST WAS CALLED AND SECURITY CALLED TO ROOM. BY THE TIME SECURITY ARRIVED PATIENT WAS CALM ENOUGHT TO ALLOW STAFF TO ASSIST IN REPOSITIONING ALTHOUGH STILL GIVING VERBAL THREATS. VEST RESTRAINT AND ORDER OBTAINED 2104- SECURITY ASSIST TO PLACE NON VIOLENT RESTRAINT. PRN ZYPREXA ADMINISTERED. POST ADMINISTRATION OF ZYPREXA AND PRN PAIN MEDICATIONS FOR CONTINUED BACK PAIN- PT WAS ABLE TO REST COMFORTABLY AND REMAIN CALM ALTHOUGH CONTINUED TO BE CONFUSED. BED ALARM ACTIVATED, BED IN LOW POSITION, CALL KIM AND BELONGINGS IN REACH.
[2022-03-06 12:20] LABS: Source, Urine Foley catheter
[2022-03-06 12:37] LABS: Appearance, Urine Clear (Clear); Bilirubin, Urine Neg (Neg); Blood, Urine Neg (Neg); Color, Urine Yellow (P-Yellow); Glucose Qualitative, Urine Neg (Neg); Ketones, Urine Neg (Neg); Leukocyte Esterase, Urine Neg (Neg); Nitrite, Urine Neg (Neg); Protein, Urine Neg (Neg); Urobilinogen, Urine NORM (Normal)
--- NOTE | 2022-03-06 16:56 | NUR ---
PT HAS BEEN CONCERNED WITH QUALITY OF PAIN MANAGMENT. RN CONSULTED WITH JOANN FROM [facility] TO DISCUSS PAIN MANAGEMENT. AT BEDSIDE, DR. FLORES ORDERED A URINALYSIS AND A FENTANYL PAIN PATCH. PT SEEMED TO BE MORE COMFORTABLE AFTER APPLICATION OF PAIN PATCH. HE WAS NO LONGER MOANING IN PAIN, AND ABLE TO VISIT PLEASANTLY WITH FAMILY MEMBERS AT BEDSIDE. RESTING QUIETLY IN BED, WATCHING TV. STILL CONFUSED, ATTEMPTED TO REMOVE HIS TELEMETRY BOX BECAUSE HE THOUGHT IT WAS A CASSETTE TAPE. PT REMAINED FREE OF RESTRAINTS THROUGH OUT THE SHIFT. PICC IN THE RIGHT UPPER ARM. VELASQUEZ DRAINING DARK YELLOW URINE WITH SCANT SEDIMENT. PT WITH PRODUCTIVE COUGH, OCCASSIONALLY COARSE IN THE UPPER LUNGS. RESPONDS TO PRN RESPIRATORY TREATMENTS. VSS.
--- NOTE | 2022-03-06 19:20 | NUR ---
Called to see pt this gregorioternjeimy, assisted with his brething treatment he was struggleing to tolerate it. Pt making statements about wanting to he was so miserable. he wanted to fill out a polst. He would not want to go back on ventilator or want cpr. Called son to discuss his fathers expressions. He did not call back. Family in to visit today and they were having conversation about his care will follow up with son.
--- NOTE | 2022-03-06 19:43 | NUR ---
OXYCODONE - PT STATES HE TAKES OXYCODONE AT HOME FOR CHRONIC PAIN. HE STATES HE IS ON A PAIN CONTRACT WITH HIS DR. JUANITO DELEON.
--- NOTE | 2022-03-06 20:29 | NUR ---
NURSE NOTE: CONTACTED DORON SANCHEZ FOR PATIENT REQUEST FOR PRN OXYCODONE INSTEAD OF FENTANYL. DORON SACNHEZ DECLINED PATIENTS REQUEST FOR PRN OXYCODONE AT THIS TIME.
--- NOTE | 2022-03-07 03:45 | NUR ---
NURSE NOTE/SHIFT SUMMARY: BEGINNING OF SHIFT PATIENT A/O X3 DISORIENTED TO TIME, THROUGOUT THE NIGHT PATIENT HAS BECOME INCREASINGLY CONFUSED. PREVIOUSLY REPORTED THIS IS ONGOING PRESENTATION OF INCREASED CONFUSION AT NIGHT. REMAINING ON 2L O2 NASAL CANNULA SATING ABOVE 93%- DOES DESAT INTO THE 80'S WHEN REMOVING O2 NASAL CANNULA. CURRENTLY A/O X 1-2. DECREASED SLEEP TONIGHT APPEARING VERY RESTLESS. PT REPORTING CONTINUED CHRONIC BACK PAIN, REQUESTING PRN OXYCODONE- MD DECLINED REQUEST FOR OXYCODONE, PER MD CONTINUE PAIN MANAGEMENT WITH ORDERED PRN FENTANYL. -VELASQUEZ CATHETER REMAINS IN PLACE DRAINING WELL WITH ADEQUATE OUTPUT. BED ALARM REMAINS ACTIVATED, BED IN LOW POSITION, CALL KIM AND BELONGINGS IN REACH.
[2022-03-07 05:28] LABS: BASOPHILS ABSOLUTE AUTO 0.04 K/mm3 (0.00-0.23); BASOPHILS PERCENT AUTO 1 % (0-2); EOSINOPHILS PERCENT AUTO 6 % (0-6); Hematocrit 38.1 % (37.0-53.0); Hemoglobin 12.1 g/dL (13.5-17.5); IMMATURE GRAN ABSOLUTE AUTO 0.03 K/mm3 (0.00-0.10); IMMATURE GRAN PERCENT AUTO 0 % (0-1); LYMPHOCYTES ABSOLUTE AUTO 1.88 K/mm3 (0.84-5.20); LYMPHOCYTES PERCENT AUTO 27 % (21-46); MONOCYTES ABSOLUTE AUTO 0.47 K/mm3 (0.16-1.47); MONOCYTES PERCENT AUTO 7 % (4-13); Mean Corpuscular HGB 31.3 pg (26.0-34.0); Mean Corpuscular HGB Conc 31.8 g/dL (31.5-36.5); Mean Corpuscular Volume 98 fL (80-100); Mean Platelet Volume 9.1 fL (9.1-12.4); NEUTROPHILS ABSOLUTE AUTO 4.17 K/mm3 (1.96-9.15); NEUTROPHILS PERCENT AUTO 60 % (41-73); Platelet Count 246 K/mm3 (150-400); RDW Standard Deviation 47.2 fL (35.1-46.3); Red Blood Cell Count 3.87 M/mm3 (4.30-5.90); White Blood Cell Count 6.99 K/mm3 (4.00-11.30)
[2022-03-07 05:56] LABS: Calcium, Blood 9.6 mg/dL (8.5-10.1); Creatinine, Blood 0.85 mg/dL (0.60-1.20)
--- NOTE | 2022-03-07 08:00 | NUR ---
pt laying in bed awake pulling off tele and o2 monitor, and 02 agitated because he wants to get up and walk to the bathroom to have a bm, replaced his gown and tele, sats are high 90's on r/a, he refused to use the bedpan, got him up to bsc with two person assist, is very weak, but able to bare weight and pivot over to bsc, had a large bm, sat in a chair for breakfast, took po meds ok, lungs are a bit course, dim on left mid field and base, very painful moving, gaurding left side, hrr, tele in place running sr per monitor, see strip, trace edema noted to b/l le, picc line t o josé, site is clear and patent, btx4, abd flat soft nontender, garcia cath in place, skin is c/w/d except some bruising to left side where he fell, dressing to left side where there was a chest tube, maddison, call light in reach.
--- NOTE | 2022-03-07 18:05 | NUR ---
pt has had visitors in room today, had a bed bath and shave, dangling on the side of the bed for dinner, is more confused and grumpy this evening, no further changes, call light in reach.
--- NOTE | 2022-03-08 03:43 | NUR ---
SHIFT SUMMARY: A/OX 1-2, CONTINUED INCREASED CONFUSION AT NIGHT. INCREASED RESTLESSNESS DUE TO CHRONIC BACK PAIN. FREQUENT REPOSITIONING AND REORIENTATION PROVIDED. PT CONTINUES TO REPORT CHRONIC BACK PAIN DIFFICULTY GETTING RELIEF- PT ABLE TO SLEEP POST ADMINISTRATION OF SCHEDULED MEDS, PRN OXYCODONE AND ACETAMINOPHEN, APPLICATION OF HEATING PAD TO BACK. OTHERWISE NO ACUTE CHANGES THROUGHOUT THE NIGHT. BED ALARM ACTIVATED, BED IN LOW POSITION, CALL KIM AND BELONGINGS IN REACH.
[2022-03-08 05:58] LABS: Bun/Creatinine Ratio 15.1 (12.0-20.0); Creatinine, Blood 0.86 mg/dL (0.60-1.20); Potassium, Blood 3.8 mmol/L (3.5-5.5)
--- NOTE | 2022-03-08 18:34 | NUR ---
SHIFT SUMMARY NO ACUTE CHANGES THIS SHIFT. PT A/O X2-3 DURING THE DAY AND C/O PAIN IN HIS RIBS AND HIS BOTTOM. TREATED FOR PAIN PER EMR. PREVENTATIVE MEPILEX APPLIED TO BACKSIDE FOR PREVENTION. PT TO HAVE VELASQUEZ CLAMPED TONIGHT FOR BLADDER TRAINING. VSS. WILL POSSIBLY GO TO SNF AT DISCHARGE.
--- NOTE | 2022-03-09 04:27 | NUR ---
SHIFT SUMMARY: A/OX3-4. SIGNIFICANTLY MORE ORIENTED TONIGHT IN COMPARISON TO PREVIOUS 3 NIGHTS WITH OBSERVED INCREASED CONFUSION FROM THIS RN. NO IRRITABILITY OBSERVED, PT RETAINING MORE INFORMATION. CONTINUED COMPLAINTS OF CHRONIC BACK PAIN- MANAGED WITH PRN PAIN MEDICATION. VELSAQUEZ CATH BLADDER TRAINING THROUGHOUT THE NIGHT- PATIENT CALLING APPROPRIATELY. BED ALARM ACTIVATED, BED IN LOW POSITION, CALL KIM AND BELONGINGS IN REACH.
--- NOTE | 2022-03-09 17:08 | NUR ---
SHIFT SUMMARY PT AxOx2-3 WITH INTERMITTENT CONFUSION AND FORGETFULNESS. PT'S MENTATION SEEMED TO BE FAIRLY CLEAR THIS AM BETWEEN NAPPING BEFORE AND AFTER BREAKFAST. PT REPORTS CHRONIC PAIN IN HIS BACK. MEDICATED PER EMAR. PT AND OT WORKED WITH THE PATIENT THIS SHIFT. 2 ASSIST WITH FWW AND GB FOR TRANSFERS. BED ALARM ON FOR MENTATION DECLINE LATER IN THE AFTERNOON. PATIENT HAS HAD MUTIPLE VISITORS THIS SHIFT. PT WAS STATING THAT HIS NIECE IS TAKING HIM OUT TO A [employer] RESTAURANT FOR DINNER. PT NOT EASILY AGREEABLE TO REORIENTING ON THAT TOPIC. DISTRACTION AND REDIRECTION PROVIDED. VELASQUEZ CATHETER AND TELE DC'D THIS SHIFT. PT HAS BEEN SPONTANEOUSLY VOIDING THEREAFTER. PT CURRENTLY RESTING IN BED WITH CALL LIGHT IN REACH. VITALS REVIEWED. PT DENIES ANY NEEDS AT THIS TIME.
--- NOTE | 2022-03-10 06:15 | NUR ---
SHIFT SUMMARY PT COMPLAINED OF PAIN LAST EVENING. MEDICATED PER EMAR WITH OXYCONTIN AND ROXICODONE. PT AWAKE MUCH OF THE NIGHT. ON 2L O2. PT HAS CALL LIGHT WITHIN HIS REACH.
--- NOTE | 2022-03-10 14:57 | NUR ---
REPORT REPORT GIVEN TO MARCIANO AYALA. NO ACUTE CHANGES SINCE ASSUMING CARE AT 0700. PATIENT IS ALERT AND ORIENTED, FORGETFUL AT TIMES. HE HAS BEEN PLEASANT AND COOPERATIVE WITH CARE. HE USES HIS CALL LIGHT AND WAITS FOR STAFF TO RESPOND. HE IS AGREEABLE TO SNF AND PLANS TO RETURN HOME WITH FAMILY AFTER SNF STAY. HE WORKED WITH PHYSICAL THERAPY.
--- NOTE | 2022-03-10 15:07 | NUR ---
BEDSIDE REPORT RECEIVED FROM PEDRO PABLO RN, ASSUMED CARE OF PATIENT AT THIS TIME. REVIEWED SHIFT ASSESSMENT AND AGREE WITH DOCUMENTATION. PT IN BED WATCHING TV, REPORTS PAIN IN CHEST BUT IS TOLERABLE AT THIS TIME. NEXT DOSE OF OXYCODONE CAN BE GIVEN AT 1725. PT ON 1 L O2 IN NO APPARENT RESPIRATORY DISTRESS. PT DENIES NEEDS AT THIS TIME.
--- NOTE | 2022-03-10 17:50 | NUR ---
SHIFT SUMMARY: PT A/O X 4, ONE ASSIST WITH GB/WALKER. PLEASANT AND COOPERATIVE WITH CARE. PT PAIN MANAGED AT THIS TIME WITH OXYCODONE AND TYLENOL. SOME YELLOW BRUISING AT CHEST TUBE SITE. BANDAGE OVER SITE CDI. PT UP TO CHAIR AT THIS TIME EATING DINNER. NO OTHER CONCERNS AT THIS TIME.
--- NOTE | 2022-03-11 05:02 | NUR ---
PT IS A/OX3, WITH WHAT SEEMS TO BE PERIODS OF CONFUSION.FORGETFULLNESS. PT PT WAS MEDICATED FOR PAIN T/O THE NIGHT. THE PT ONLY SLEPT FOR SHORT PERIODS AT A TIME. THE PT WAS UP AMBULATING USEING THE FWW OFF AND ON T/O THE NIGHT. THE PT WAS UP TO THE BATHROOM AND UP TO THE CHAIR. WHILE UP THE PTS O2 SAT'S WERE >91%, HOWEVER, WHEN LAYING FLAT THE PT'S SAT'S FELL TO 85%, O2 WAS APPLIED AT 2L/MIN. CALL LIGHT IN REACH, WILL CONTINUE TO MONITOR AND ASSESS FOR CHANGES
[2022-03-11 11:12] LABS: BASOPHILS ABSOLUTE AUTO 0.02 K/mm3 (0.00-0.23); BASOPHILS PERCENT AUTO 0 % (0-2); EOSINOPHILS PERCENT AUTO 7 % (0-6); Hematocrit 40.6 % (37.0-53.0); Hemoglobin 12.9 g/dL (13.5-17.5); IMMATURE GRAN ABSOLUTE AUTO 0.02 K/mm3 (0.00-0.10); IMMATURE GRAN PERCENT AUTO 0 % (0-1); LYMPHOCYTES ABSOLUTE AUTO 1.62 K/mm3 (0.84-5.20); LYMPHOCYTES PERCENT AUTO 27 % (21-46); MONOCYTES ABSOLUTE AUTO 0.52 K/mm3 (0.16-1.47); MONOCYTES PERCENT AUTO 9 % (4-13); Mean Corpuscular HGB 31.3 pg (26.0-34.0); Mean Corpuscular HGB Conc 31.8 g/dL (31.5-36.5); Mean Corpuscular Volume 99 fL (80-100); NEUTROPHILS ABSOLUTE AUTO 3.54 K/mm3 (1.96-9.15); NEUTROPHILS PERCENT AUTO 58 % (41-73); Platelet Count 231 K/mm3 (150-400); RDW Coefficient Variation 12.9 % (11.7-14.2); RDW Standard Deviation 46.3 fL (35.1-46.3); Red Blood Cell Count 4.12 M/mm3 (4.30-5.90); White Blood Cell Count 6.12 K/mm3 (4.00-11.30)
[2022-03-11 11:26] LABS: Source, Urine Straight Cath
[2022-03-11 11:34] LABS: Bun/Creatinine Ratio 18.6 (12.0-20.0); Calcium, Blood 9.5 mg/dL (8.5-10.1); Creatinine, Blood 0.86 mg/dL (0.60-1.20); Potassium, Blood 4.4 mmol/L (3.5-5.5)
[2022-03-11 11:58] LABS: Bilirubin, Urine Neg (Neg); Blood, Urine Neg (Neg); Glucose Qualitative, Urine Neg (Neg); Ketones, Urine Neg (Neg); Leukocyte Esterase, Urine Neg (Neg); Nitrite, Urine Neg (Neg); Protein, Urine Neg (Neg); Urobilinogen, Urine NORM (Normal)
[2022-03-11 12:04] LABS: Appearance, Urine Clear (Clear); Color, Urine Yellow (P-Yellow)
--- NOTE | 2022-03-11 17:01 | NUR ---
SHIFT SUMMARY: PT SOMNOLENT AND DIFFCULIT TO AROUSE. PT HAD MOMENTS OF HALLUCINATION. PT NOT ABLE TO TAKE HIS MEDICATION, DUE TO ASPIRATION RISK. DR. FLORES NOTIFIED OF PT CHANGE IN CONDITION. DR. FLORES ORDERED CHEST X-RAY, BLOOD CULTURE, LABS, AND URINE CULTURE. PT VITALS WNL, TEMPTURE 99.5 TEMPORAL. PT IMPROVED AT THE END OF SHIFT. PT IS AWAKE ABLE TO HOLD A CONVERSATION. PT LABS AND URINE CULTURE WNL PT IS EATING AND DRINKING FLUIDS INDEPENDANTLY. PT ABLE TO USE SPIROMETTER INDEPENDANTLY. PT SON IS VISITED. PT IS SITTING IN HIS RECLINER EATING HIS DINNER WITH CALL LIGHT WITH IN REACH.
--- NOTE | 2022-03-12 04:40 | NUR ---
SHIFT SUMMARY; PATIENT UP TILL 1 AM COMPLAINING OF DIFFICULTY SLEEPING. HE ASKS FOR SNACK AND IS PROVIDED WITH YOGURT AND ROOTBEER. HE EVENTUALLY SLEEPS SOUNDLY UNTIL 5AM WHEN LAB COMES TO DRAW BLOOD. HE USES CALL LIGHT APPROPRIATELY THROUGHOUT THE NIGHT AND IS ABLE TO MAKE HIS NEEDS KNOWN. PATIENT RESTS ON HIS LEFT SIDE AND SAYS IT IS LESS PAINFULL TO LAY THAT WAY. PATIENT IS ENCOURAGED TO USE INCENTIVE SPIROMETER THROUGHOUT THE SHIFT AND IS COMPLIANT WHEN AWAKE. WILL REMAIN AVAILABLE FOR THIS PATIENT FOR ANY WANTS OR NEEDS THAT COME UP PRIOR TO SHIFT CHANGE.
[2022-03-12 06:01] LABS: BASOPHILS ABSOLUTE AUTO 0.04 K/mm3 (0.00-0.23); BASOPHILS PERCENT AUTO 1 % (0-2); EOSINOPHILS ABSOLUTE AUTO 0.37 K/mm3 (0.00-0.68); EOSINOPHILS PERCENT AUTO 6 % (0-6); Hematocrit 40.1 % (37.0-53.0); Hemoglobin 12.9 g/dL (13.5-17.5); IMMATURE GRAN ABSOLUTE AUTO 0.02 K/mm3 (0.00-0.10); IMMATURE GRAN PERCENT AUTO 0 % (0-1); LYMPHOCYTES ABSOLUTE AUTO 2.32 K/mm3 (0.84-5.20); LYMPHOCYTES PERCENT AUTO 38 % (21-46); MONOCYTES ABSOLUTE AUTO 0.57 K/mm3 (0.16-1.47); MONOCYTES PERCENT AUTO 9 % (4-13); Mean Corpuscular HGB 31.3 pg (26.0-34.0); Mean Corpuscular HGB Conc 32.2 g/dL (31.5-36.5); Mean Corpuscular Volume 97 fL (80-100); Mean Platelet Volume 9.6 fL (9.1-12.4); NEUTROPHILS ABSOLUTE AUTO 2.81 K/mm3 (1.96-9.15); NEUTROPHILS PERCENT AUTO 46 % (41-73); Platelet Count 220 K/mm3 (150-400); RDW Coefficient Variation 12.8 % (11.7-14.2); RDW Standard Deviation 45.6 fL (35.1-46.3); Red Blood Cell Count 4.12 M/mm3 (4.30-5.90); White Blood Cell Count 6.13 K/mm3 (4.00-11.30)
[2022-03-12 06:07] LABS: Bun/Creatinine Ratio 16.3 (12.0-20.0); Calcium, Blood 9.5 mg/dL (8.5-10.1); Creatinine, Blood 0.86 mg/dL (0.60-1.20); Potassium, Blood 4.3 mmol/L (3.5-5.5)
--- NOTE | 2022-03-13 04:19 | NUR ---
SHIFT SUMMARY; NO ACUTE CHANGES IN CONDITION NOTED FOR THIS PATIENT DURING NOC SHIFT. HE IS MEDICATED X 2 WITH PAIN MEDICATION FOR LEFT SIDE PAIN. PATIENT HAS DIFFICULTY SLEEPING HE IS VERY UNCOMFORTABLE. EFFORTS TO REPOSTION OR ADD ADITIONAL PILLOWS ARE UNSUCCESFUL. PATIENT DID WORK WITH PT OT YESTERDAY DURING DAY AND WONDERS IF HE DID TOO MUCH AND THAT MAY BE WHY HE IS HURTING. WILL PASS ON IN SHIFT REPORT TO DAY SHIFT RN TO LET PT AND OT KNOW THAT HE HAD DIFFICULTY NIGHT AND MAY HAVE FREQUENCY CHECKER THERAPY SESSION TODAY.
--- NOTE | 2022-03-13 08:00 | NUR ---
pt laying in bed watching tv a/ox3, pleasant and cooperative with care, follows commands well, reports pain at 7/10, donell to left side, lungs are clear in upper barfield, very dim in bases, resp even and unlabored, no cough noted, currently on 2 liters o2 via n/c, hrr, distant, no edema noted, ppp +1, cap refill <3sec, vs stable, afebrile, iv site is picc line to josé site is clear and patent, btx4, abd flat soft nontender, voids without diff, skin c/w/d, maew, maddison, call light in reach. family in to see him.
--- NOTE | 2022-03-13 18:06 | NUR ---
pt was able to ambulate out in the toscano with PT, other rm uneventful day, no acute changes or needs. call light in reach.
--- NOTE | 2022-03-13 21:50 | NUR ---
C/O CHEST PAIN. HAND HOLDING LEFT CHEST. SEE VS - BP ELEVATED. ASKING FOR HIS "NITOR", NITRO NOT ORDRED. MD NOTIFIED AND ORDERS OBTAINED FOR NITOR (BUT TO HOLD ISMO DUE AT 2100). PHARMACY NOTIFIED. CHARGE NURSE NOTIFIED
--- NOTE | 2022-03-13 22:23 | NUR ---
EKG DONE, POSSIBLE INFERIOR INFARCT, BUT UNDETERMINED AGE. TROP DRAWN. PT NOW VOICED NO CHEST PAIN. NITRO HELD WILL GIVE SCHEDULED MEDS INSTEAD.
--- NOTE | 2022-03-13 22:55 | NUR ---
WAS NOTIFIED OF EKG RESULTS. NO NEW ORDERS. PT CURRENTLY ASYMPTOMATIC. CALL LIGHT IN REACH
--- NOTE | 2022-03-14 03:43 | NUR ---
SPANNER OPERATOR SUMMARY AT SHIFT COMMENCE VOICED CHEST PAIN. AND REQUESTED HIS "NITRO". NO SUCH MED WAS NOTED ON SEP. VITAL SIGHS ELEVATED BP. CALL PLACED TO MD WELDER FIRST CLASS. ORDERS FOR EKG, TROP LEVEL AND PRN OF NITOR TO BE GIVEN IF ROUTINE ISORBIDE NOT GIVEN. WHEN NURSE BROUGHT IN NITRO, PT VOICED CHEST PAIN GONE AND SO NITRO HELD. EKG REVEALED ABNORMAL EKG, REVEALED POSSIBLE INFARCT BUT UNKNOWN WHEN IT HAPPENED. TROP LEVEL WNL. MD WAS NOTIFIED, NO EXTRA ORDERS GIVEN. HAS BEEN RESTING QUIETLY WITH OCCASIONAL INTERRUPTION. NO FURTHER VOICED CHEST PAIN, BUT DID REQUEST ANALGSEIC FOR BACK AND RIB PAIN. SEE MAR FOR DETAILS. CALL LIGHT IN REACH. RECENTLY JOKING WITH NURSE. WILL CONTINUE TO MONITOR.
--- NOTE | 2022-03-14 14:03 | NUR ---
SHIFT SUMMARY PT AWAKE DURING SHIFT REPORT, WANTING BREAKFAST. SNACK GIVEN PER PT REQUEST. PT ABLE TO GET UP TO EOB ON HIS OWN TO USE URINAL AND SIT UP FOR MEALS. WEAK AND UNSTEADY WHEN UP OOB. MEDICATED FOR C/O BACK PAIN X1 THIS SHIFT. HAS SLEPT OFF AND ON THRU OUT THE DAY. VISITOR TO THIS AFTERNOON. DENIED FURTHER NEEDS AT THIS TIME. CALL LT IN REACH.
--- NOTE | 2022-03-15 03:54 | NUR ---
UTILIZATION SPECIALIST SUMMARY AWAKE AT INTERVALS THROUGHOUT SHIFT. CALLING OUT FOR PAIN MEDS AND FOR ATTENTION. SEE MAR FOR DETAILS. O2 PER NC. SATS WNL. HOB ELEVATED FOR COMFORT. BP ELEVATED BUT TOLERATING ANTIHYPERTENSIVE MEDS WELL. CALL LIGHT IN REACH. WILL CONTINUE TO MONITOR.
--- NOTE | 2022-03-15 11:22 | NUR ---
PATIENT COMPLETED HIS HOME EVAL. DURING THE PROCESS, HE AMBULATED FROM HIS ROOM, DOWN TO THE END OF HALLWAY. UPON RETURN, HE BECAME NAUSEATED. HE STATES THAT IT STARTED WITH LIGHTHEADEDNESS, AND THE THE NAUSEA. IT ONLY LASTED A FEW MINUTES BEFORE GOING AWAY. HE STATES THIS HAPPENS AT HOME SOMETIMES WELL. BP 116/79, PULSE 98 02 95% RA- AFTERWARD.
--- NOTE | 2022-03-15 12:53 | NUR ---
DISCHARGE-1300 PATIENT WAS PROVIDED PAPERWORK REGARDING DISCHARGE, EDUCATION ON CONDITION AND NEW MEDICATION. HIS IV WAS REMOVED AND HE WAS BROUGHT DOWN BY TO MEET THE [facility] THAT IS WAITING FOR HIM. [facility] WILL TRANSPORT TO [place] IN [place], WHERE HE WILL BE RESIDING. ANY NEW MEDICATIONS THAT THE PATIENT WILL NEED WERE FAXED TO [facility] AND THEY WILL DELIVER TO THE FACILITY. [facility]
--- NOTE | 2022-03-15 17:09 | NUR ---
PATIENT CONTINUES ON 2 LITERS OF 02. MEDICATION ADJUSTED SLIGHTLY TODAY. PAIN IS STILL A COMPLAINT(RIBS). LS WHEEZE IN LEFT SIDE, HRR WITH HISTORY OF STENTS AND DOUBLE BIPASS ABOUT ONE YEAR AGO. NEUROPATHY RESULTS IN NUMBNESS AND TINGELING IN FINGERS AND TOES. PATIENT ATE NO BREAKFAST OR LUNCH, BUT REQUESTS ROOTBEER AND ICE CREAM. HE HAS HAD NAUSEA AND DID RECEIVE ZOFRAN SL. WE WILL ENCOURAGE HIM TO EAT SMALL PORTIONS FOR DINNER TO SEE IF THIS HELPS REDUCE NAUSEA.
--- NOTE | 2022-03-15 23:58 | NUR ---
AT SHIFT COMMENCE VOICED SEVERE PAIN OF RIBS, AM RN VOICED ANALGESIC WAS DECREASED, PT VOICED IT WASNT HELPING. MD NOTIFIED, MEDS ADMINISTERED. SEE MAR FOR DETAILS. WAS UP AMBULATING ABOUT HALLS WITH WALKER. MEDS NOW WORKING. RESING IN BED. CALL LIGHT IN REACH
--- NOTE | 2022-03-16 04:08 | NUR ---
EQUIPMENT MAN SUMMARY HAS HAD DISCOMFORT IN BACK THROUGHOUT SHIFT. MD WAS NOTIFIED AND MEDICATIONS ORDERED - SEE MAR FOR DETAILS. UP AND WALKING HALLS WITH WALKER AT INTERVALS. CURRENTLY IN BED RESTING. CALL LIGHT IN REACH.
[2022-03-16 05:48] LABS: Base Excess Venous 7.6 mmol/L; PCO2 Venous 50.1 mmHg (38-42); pH Blood Venous 7.42 (7.34-7.37)
[2022-03-16] MEDS ORDERED: HYDCHL25 PO (12:20)
[2022-03-16] MEDS ORDERED: NICO21TP TOP (12:21)
[2022-03-16] MEDS ORDERED: POTA10T PO (12:21)
--- NOTE | 2022-03-16 13:12 | NUR ---
PATIENT WAS DISCHARGED TO HOME TODAY. DISCHARGE INSTRUCTIONS, PATIENT EDUCATION, AND MEDICATION EDUCATION WAS PROVIDED BEFORE HE LEFT. PICC LINE WAS REMOVED WITHOUT COMPLICATION. PATIENT WAS WHEELED TO THE DOOR, WHERE HIS FAMILY WAS WAITING WITH [employer]. PATIENT WILL HAVE HOME HEALTH SERVICES AND THEY WILL CONTACT HIM TO SCHEDULE.
== END 2022-03-16 12:55 | disposition home health service (06) | DRG 207 ==
LOC: ER 18:50 → ICUW 23:00 → PCU 03-03 12:00 → MEDS 03-05 18:27
PROVIDERS: Emergency Medicine; Family Medicine; Internal Medicine; Internal Medicine Critical Care Medicine; ADMIT Family Medicine
PROC: 0W9B00Z Drainage of Left Pleural Cavity with Drainage Device, Open Approach (ICD-10-PCS; principal; 2022-02-19)
PROC: 5A1955Z Respiratory Ventilation, Greater than 96 Consecutive Hours (ICD-10-PCS; 2022-02-19)
PROC: 0BH17EZ Insertion of Endotracheal Airway into Trachea, Via Natural or Artificial Opening (ICD-10-PCS; 2022-02-19)
PROC: 02HV33Z Insertion of Infusion Device into Superior Vena Cava, Percutaneous Approach (ICD-10-PCS; 2022-02-22)
PROC: 4A143B0 Monitoring of Venous Pressure, Central, Percutaneous Approach (ICD-10-PCS; 2022-02-23)
DX: J93.0 Spontaneous tension pneumothorax (principal); J15.6 Pneumonia due to other Gram-negative bacteria; G92.8 Other toxic encephalopathy; J96.01 Acute respiratory failure with hypoxia; J69.0 Pneumonitis due to inhalation of food and vomit; R57.8 Other shock; S22.42XA Multiple fractures of ribs, left side, initial encounter for closed fracture; F10.239 Alcohol dependence with withdrawal, unspecified; E87.1 Hypo-osmolality and hyponatremia; T79.7XXA Traumatic subcutaneous emphysema, initial encounter; E87.2 Acidosis; J44.9 Chronic obstructive pulmonary disease, unspecified; F17.210 Nicotine dependence, cigarettes, uncomplicated; I25.10 Atherosclerotic heart disease of native coronary artery without angina pectoris; E87.6 Hypokalemia; I12.9 Hypertensive chronic kidney disease with stage 1 through stage 4 chronic kidney disease, or unspecified chronic kidney disease; N18.30 Chronic kidney disease, stage 3 unspecified; R13.10 Dysphagia, unspecified; Z20.822 Contact with and (suspected) exposure to COVID-19; B19.20 Unspecified viral hepatitis C without hepatic coma; G89.29 Other chronic pain; E78.00 Pure hypercholesterolemia, unspecified; E83.39 Other disorders of phosphorus metabolism; M54.9 Dorsalgia, unspecified; D69.6 Thrombocytopenia, unspecified; Z87.19 Personal history of other diseases of the digestive system; I25.2 Old myocardial infarction; Z98.890 Other specified postprocedural states; Z86.718 Personal history of other venous thrombosis and embolism; Z79.899 Other long term (current) drug therapy; Z79.82 Long term (current) use of aspirin; Z79.01 Long term (current) use of anticoagulants; Z79.51 Long term (current) use of inhaled steroids; Z79.2 Long term (current) use of antibiotics; Z79.891 Long term (current) use of opiate analgesic; Z79.52 Long term (current) use of systemic steroids; Z95.1 Presence of aortocoronary bypass graft; W19.XXXA Unspecified fall, initial encounter
CPT/HCPCS: 0241U; 31500; 32551; 36415; 36569; 36600; 51702; 71045; 71260; 74177; 80048; 80053; 80069; 81003; 82140; 82330; 82803; 82947; 83605; 83735; 84100; 84145; 84484; 85025; 85027; 86140; 87040; 87070; 87077; 87186; 92526; 92610; 93005; 93010; 93925; 94002; 94003; 94640; 94664; 94760; 94761; 94762; 96374; 96375; 96376; 97110; 97116; 97162; 97166; 97530; 97535; 99291-25; 99292; A9270; C1751; C9113; G0480; J0295; J0696; J1644; J1650; J2060; J2704; J3010; J3411; J3480; J7030; J7040; J7050; J7120; Q9967

== ENCOUNTER 2022-09-07 08:58 | Emergency (ER) | payer MEDICARE ==
[~2022-09-07] VITALS: Ht 180.3 cm; Wt 86.2 kg
[~2022-09-07 08:58] MED LIST changes: +HYDCHL25 PO
== END 2022-09-07 13:15 | disposition home or self-care (01) ==
LOC: ER 08:58
DX: M54.50 Low back pain, unspecified (principal); G89.29 Other chronic pain; I10 Essential (primary) hypertension; I25.2 Old myocardial infarction; I25.10 Atherosclerotic heart disease of native coronary artery without angina pectoris; F17.210 Nicotine dependence, cigarettes, uncomplicated; Z79.899 Other long term (current) drug therapy
CPT/HCPCS: 72100; 94640; 94664; 99284-25

== ENCOUNTER → 2023-01-27 | Outpatient (CLI) | payer MEDICARE ==
[2023-01-27 13:15] LABS: BASOPHILS ABSOLUTE AUTO 0.03 K/mm3 (0.00-0.23); BASOPHILS PERCENT AUTO 0 % (0-2); EOSINOPHILS PERCENT AUTO 4 % (0-6); Hematocrit 42.7 % (37.0-53.0); Hemoglobin 13.8 g/dL (13.5-17.5); IMMATURE GRAN ABSOLUTE AUTO 0.02 K/mm3 (0.00-0.10); IMMATURE GRAN PERCENT AUTO 0 % (0-1); LYMPHOCYTES PERCENT AUTO 31 % (21-46); MONOCYTES ABSOLUTE AUTO 0.39 K/mm3 (0.16-1.47); MONOCYTES PERCENT AUTO 6 % (4-13); Mean Corpuscular HGB 32.4 pg (26.0-34.0); Mean Corpuscular HGB Conc 32.3 g/dL (31.5-36.5); Mean Corpuscular Volume 100 fL (80-100); Mean Platelet Volume 10.2 fL (9.1-12.4); NEUTROPHILS ABSOLUTE AUTO 4.02 K/mm3 (1.96-9.15); NEUTROPHILS PERCENT AUTO 59 % (41-73); Platelet Count 187 K/mm3 (150-400); RDW Standard Deviation 51.4 fL (35.1-46.3); Red Blood Cell Count 4.26 M/mm3 (4.30-5.90); White Blood Cell Count 6.86 K/mm3 (4.00-11.30)
[2023-01-27 13:39] LABS: Alanine Aminotransfer (ALT/SGP 22 U/L (12-78); Albumin, Blood 3.6 g/dL (3.4-5.0); Albumin/Globulin Ratio 1.1 (0.8-1.8); Alk Phos 84 U/L (50-136); Anion Gap 6 mmol/L (6-16); Aspartate Aminotrans (AST/SGOT 20 U/L (12-37); Bilirubin, Total 0.5 mg/dL (0.1-1.0); Blood Urea Nitrogen 16 mg/dL (8-24); Bun/Creatinine Ratio 15.7 (12.0-20.0); CHOL/HDL RATIO 1.5; CO2, Blood 31 mmol/L (21-32); Calcium, Blood 9.3 mg/dL (8.5-10.1); Chloride, Blood 107 mmol/L (98-108); Cholesterol 105 mg/dL (50-200); Creatinine, Blood 1.02 mg/dL (0.60-1.20); Globulin, Blood 3.2 g/dL (2.2-4.0); Glomerular Filtration Rate 80 (60-); Glucose, Blood 91 mg/dL (70-99); HDL Cholesterol 70 mg/dL (>39); LDL/HDL RATIO 0.3; Low Density Lipoprotein Chol 20 mg/dL (0-110); Potassium, Blood 4.7 mmol/L (3.5-5.5); Sodium, Blood 144 mmol/L (136-145); Total Protein, Blood 6.8 g/dL (6.4-8.2); Triglycerides 73 mg/dL (30-160); Very Low Density Lipoprot Chol 14 mg/dL (6-32)
== END ==
LOC: LAB SHORT 09:30 → LAB 09:30
PROVIDERS: Physician Assistant
DX: I10 Essential (primary) hypertension (principal); E78.2 Mixed hyperlipidemia
CPT/HCPCS: 80053; 80061; 85025

== ENCOUNTER → 2023-03-17 | Outpatient (CLI) | payer MEDICARE | END | disposition home or self-care (01) | LOC: LAB SHORT 14:20 → LAB 14:20 | PROVIDERS: Physician Assistant | DX: G89.4 Chronic pain syndrome (principal); Z79.899 Other long term (current) drug therapy | CPT/HCPCS: G0480 ==

== ENCOUNTER → 2023-05-19 | Outpatient (CLI) | payer MEDICARE | END | disposition home or self-care (01) | LOC: LAB SHORT 11:05 → LAB 11:05 | PROVIDERS: Physician Assistant | DX: Z51.81 Encounter for therapeutic drug level monitoring (principal); Z79.899 Other long term (current) drug therapy | CPT/HCPCS: G0480 ==

== ENCOUNTER 2023-07-29 16:57 | Inpatient (IN) | payer MEDICARE ==
[2023-07-29] VITALS (8 sets, daily range): BP systolic 78–103; BP diastolic 45–73
[~2023-07-29] VITALS: Ht 170.2 cm; Wt 87.1 kg
[2023-07-29 17:20] LABS: Calcium, Ionized (POC) 0.94 mmol/L (1.10-1.46); Chloride (POC) 95 mmol/L (98-108); Creatinine (POC) 5.8 mg/dL (0.8-1.3); Glucose (ISTAT POC) 92 mg/dL (70-99); Hemoglobin (POC) 14.3 g/dL (13.5-17.5); Potassium (POC) 3.7 mmol/L (3.5-5.5); Sodium (POC) 133 mmol/L (135-148); Total CO2 (POC) 26 mmol/L (21-32)
[2023-07-29] MEDS ORDERED: NS 1,000 ML IV ONE ×2 (17:26→23:28)
[2023-07-29 17:32] LABS: Hematocrit 39.6 % (37.0-53.0); Hemoglobin 13.5 g/dL (13.5-17.5); Mean Corpuscular HGB 35.3 pg (26.0-34.0); Mean Corpuscular HGB Conc 34.1 g/dL (31.5-36.5); Mean Corpuscular Volume 104 fL (80-100); Platelet Count 163 K/mm3 (150-400); RDW Coefficient Variation 13.5 % (11.7-14.2); RDW Standard Deviation 50.8 fL (35.1-46.3); Red Blood Cell Count 3.82 M/mm3 (4.30-5.90); White Blood Cell Count 17.33 K/mm3 (4.00-11.30)
[2023-07-29] MEDS ORDERED: BACL10 PO (17:35)
[2023-07-29 17:36] LABS: International Normalized Ratio 1.19; Prothrombin Time Results 12.4 Sec (9.7-11.5)
[2023-07-29 17:42] LABS: Ethanol (Alcohol), Blood, Med <3 mg/dL; Magnesium, Blood 2.2 mg/dL (1.6-2.4)
[2023-07-29] MEDS ORDERED: NS 1,000 ML IV SCH ×5 (17:45→21:10)
[2023-07-29 17:46] LABS: Alanine Aminotransfer (ALT/SGP 32 U/L (12-78); Albumin, Blood 3.3 g/dL (3.4-5.0); Albumin/Globulin Ratio 0.9 (0.8-1.8); Alk Phos 75 U/L (50-136); Anion Gap 10 mmol/L (6-16); Aspartate Aminotrans (AST/SGOT 132 U/L (12-37); Bilirubin, Total 0.7 mg/dL (0.1-1.0); Blood Urea Nitrogen 37 mg/dL (8-24); Bun/Creatinine Ratio 7.1 (12.0-20.0); CO2, Blood 26 mmol/L (21-32); Calcium, Blood 7.7 mg/dL (8.5-10.1); Chloride, Blood 98 mmol/L (98-108); Globulin, Blood 3.5 g/dL (2.2-4.0); Glomerular Filtration Rate 11 (60-); Glucose, Blood 98 mg/dL (70-99); Potassium, Blood 3.7 mmol/L (3.5-5.5); Sodium, Blood 134 mmol/L (136-145); Total Protein, Blood 6.8 g/dL (6.4-8.2)
[2023-07-29 17:58] LABS: BAND PERCENT MAN 18 % (0-8); BASOPHILS PERCENT MAN 0 % (0-2); EOSINOPHILS PERCENT MAN 0 % (0-6); LYMPHOCYTES ABSOLUTE MAN 1.38 K/mm3 (0.84-5.20); LYMPHOCYTES PERCENT MAN 8 % (21-46); MONOCYTES ABSOLUTE MAN 0.69 K/mm3 (0.16-1.47); MONOCYTES PERCENT MAN 4 % (4-13); NEUTROPHILS ABSOLUTE MAN 15.25 K/mm3 (1.96-9.15); SEG NEUTROPHILS PERCENT MAN 70 % (41-73); TOTAL CELLS COUNTED 100
[2023-07-29 18:13] LABS: PCO2 Arterial 41.5 mmHg (35-45); PO2 Arterial 313 mmHg (80-100)
[2023-07-29] MEDS ORDERED: Piperacillin/Tazobactam Sod 3.375 GM in NS 50 ML IV ONE (18:30)
[2023-07-29] MEDS ORDERED: Naloxone HCl 0.4MG / ML 1ML Vial IV ONE (19:00)
[2023-07-29] MEDS ORDERED: Vancomycin HCL 1,500 MG in NS 250 ML IV ONE (19:05)
[2023-07-29 19:40] LABS: Influenza A, PCR NEGATIVE (NEGATIVE); Influenza B, PCR NEGATIVE (NEGATIVE); Resp Syncytial Virus, PCR NEGATIVE (NEGATIVE); SARS-Cov-2 (COVID-19) PCR, MMC NEGATIVE (NEGATIVE)
[2023-07-29 19:47] LABS: Source, Urine Straight Cath
[2023-07-29 20:01] LABS: Appearance, Urine Hazy (Clear); Bilirubin, Urine Neg (Neg); Blood, Urine 5+ (Neg); Color, Urine Yellow (P-Yellow); Glucose Qualitative, Urine Neg (Neg); Ketones, Urine Neg (Neg); Leukocyte Esterase, Urine Neg (Neg); Nitrite, Urine Neg (Neg); Protein, Urine 2+ (Neg); Urobilinogen, Urine NORM (Normal)
[2023-07-29 20:22] LABS: Amorphous Light (0-Heavy); Bacteria Rare /hpf; Red Blood Cells, Urine TNTC /hpf (0-2); Squamous Epithelial Cells Not Seen /hpf (Few); White Blood Cells, Urine Not Seen /hpf (0-5)
[2023-07-29 20:25] LABS: U Amphetamine Screen Not Detected; U Barbituate Screen Not Detected; U Benzodiazapine Screen Not Detected; U Buprenorphine Screen Not Detected; U Cannabinoids Screen Not Detected; U Cocaine Screen Not Detected; U Methadone Screen Not Detected; U Methamphetamine Screen Not Detected; U Opiates Screen DETECTED; U Oxycodone Screen Not Detected; U Phencyclidine Screen Not Detected
[2023-07-29] MEDS ORDERED: FLU VACC QS2023-24(6MOS UP)/PF 60 MCG/0.5 ML SYRINGE IM ONE (21:10)
[2023-07-29] MEDS ORDERED: Ipratropium/Albuterol SulF 2.5-0.5MG/3 ML Amp INH PRN (21:10)
[2023-07-29] MEDS ORDERED: Ondansetron HCl 2 MG / ML 2ML Vial IV PRN (21:10)
--- NOTE | 2023-07-29 21:45 | NUR ---
ASSUMPTION OF CARE RECEIVED INTO CARE, 4 PERSON TRANSFER FROM STRETCHER TO BED. ATTACHED TO MONITOR. MILDLY ANXIOUS/AGGITATED TRYING TO GET OUT OF BED, EASILY REDIRECTABLE. BRIEF CHANGED, INCONT SMALL BM, CATHETER INSITU. PHOTOS TAKEN OF ALL WOUNDS. DAUGHTER BROUGHT INTO ROOM. SEE ADMISSION ASSESSMENT FOR FURTHER DETAILS.
[2023-07-29] MEDS ORDERED: Heparin Sodium,Porcine 5,000 UNIT/0.5 ML SDV SC SCH (22:00)
--- NOTE | 2023-07-29 23:15 | NUR ---
BEDSIDE RENAL ULTRASOUND COMPLETE. TECH STATED SHE COULD NOT SEE THE CATHETER IN THE BLADDER AND THAT THE BLADDER WAS DISTENDED/HOLDING 117ML. CATHETER HAS BEEN DRAINING. CATHETER SITE CLEANSED WITH CHLORHEXIDINE, VOLUME IN BALLOON REMOVED, CATHETER ADVANCED AND BALLOON RE-INFLATED. PT TOLERATED WELL.
[2023-07-30] VITALS (75 sets, daily range): BP systolic 67–169; BP diastolic 42–146
[2023-07-30] MEDS ORDERED: NS 500 ML IV ONE ×2 (01:00→05:05)
[2023-07-30] MEDS ORDERED: Naloxone HCl 0.4MG / ML 1ML Vial IV ONE (01:00)
--- NOTE | 2023-07-30 01:00 | NUR ---
BLOOD PRESSURE DR RAMIRES PHONED PT BP HAS BEEN 70S/40S MAP55. SEE EMAR FOR NARCAN AND NS BOLUS ORDERS.
[2023-07-30] MEDS ORDERED: FentaNYL Citrate 50 MCG/ML 2 ML Injection IV ONE ×2 (01:40→03:05)
[2023-07-30] MEDS ORDERED: FentaNYL Citrate 50 MCG/ML 2 ML Injection IV PRN (01:40)
--- NOTE | 2023-07-30 01:58 | NUR ---
HOSPITALIST CALL PT INCREASING AGGITATION POST NARCAN, PULLING AT GOWN/CORDS/LINES, CRYING OUT, NOT REDIRECTABLE. HEMATURIA NOTICED. DR RAMIRES CALLED AND UPDATED ON PT STATUS, NEW ORDER FOR BLADDER IRRIGATION AND FOR ANALGESIC. SEE ORDERS/EMAR.
[2023-07-30] MEDS ORDERED: LORazepam 2 MG/ML 1ML Injection IV ONE ×2 (03:00→11:25)
[2023-07-30] MEDS ORDERED: OLANZapine 10 MG Vial IM ONE (03:00)
--- NOTE | 2023-07-30 03:28 | NUR ---
AGGITATION MORE CONFUSED. YELLING "AN", DAUGHTER STATES THAT IS HIS WHO 10 YEARS AGO. YELLING STARTED TO INCREASE AND PT BEGAN YELLING "TAKE IT OUT OF MY HAND" AND STARTED SWEARING. SWUNG TOWARDS DAUGHTER. DR RAMIRES CALLED TO UPDATE ON PTS CONDITION, SEE NEW ORDERS/EMAR. CIWA ASSESSMENT DONE AND NOW 16. PRNS GIVEN PER EMAR.
[2023-07-30] MEDS ORDERED: ChlordiazePOXIDE 25 MG Cap PO PRN (03:30)
[2023-07-30] MEDS ORDERED: LORazepam 2 MG/ML 1ML Injection IV PRN (03:30)
[2023-07-30 03:56] LABS: Hematocrit 35.4 % (37.0-53.0); Hemoglobin 11.8 g/dL (13.5-17.5); Mean Corpuscular HGB 35.2 pg (26.0-34.0); Mean Corpuscular HGB Conc 33.3 g/dL (31.5-36.5); Mean Corpuscular Volume 106 fL (80-100); Mean Platelet Volume 10.3 fL (9.1-12.4); Platelet Count 135 K/mm3 (150-400); RDW Coefficient Variation 13.6 % (11.7-14.2); RDW Standard Deviation 52.4 fL (35.1-46.3); Red Blood Cell Count 3.35 M/mm3 (4.30-5.90)
[2023-07-30 04:21] LABS: Albumin, Blood 2.7 g/dL (3.4-5.0); Albumin/Globulin Ratio 0.9 (0.8-1.8); Bilirubin, Total 0.5 mg/dL (0.1-1.0); Bun/Creatinine Ratio 9.8 (12.0-20.0); Calcium, Blood 6.7 mg/dL (8.5-10.1); Creatinine, Blood 4.41 mg/dL (0.60-1.20); Potassium, Blood 3.8 mmol/L (3.5-5.5); Total Protein, Blood 5.7 g/dL (6.4-8.2)
[2023-07-30 04:31] LABS: BAND PERCENT MAN 25 % (0-8); BASOPHILS PERCENT MAN 0 % (0-2); EOSINOPHILS ABSOLUTE MAN 0.09 K/mm3 (0.00-0.68); EOSINOPHILS PERCENT MAN 1 % (0-6); LYMPHOCYTES ABSOLUTE MAN 0.57 K/mm3 (0.84-5.20); LYMPHOCYTES PERCENT MAN 6 % (21-46); METAMYELOCYTE ABSOLUTE MAN 0.09 K/mm3 (0.00-0.00); METAMYELOCYTE PERCENT MAN 1 % (0-0); MONOCYTES ABSOLUTE MAN 0.47 K/mm3 (0.16-1.47); MONOCYTES PERCENT MAN 5 % (4-13); NEUTROPHILS ABSOLUTE MAN 8.26 K/mm3 (1.96-9.15); SEG NEUTROPHILS PERCENT MAN 62 % (41-73); TOTAL CELLS COUNTED 100
[2023-07-30] MEDS ORDERED: Flumazenil 0.1 MG / ML 5ML Vial IV ONE (05:00)
[2023-07-30] MEDS ORDERED: NS 1,000 ML IV SCH ×2 (05:05→09:55)
--- NOTE | 2023-07-30 05:20 | NUR ---
HOSPITALIST ASSESSMENT DR RAMIRES CAME BY TO ASSESS PT. PT NOT RESPONSIVE TO ANY STIMULI. AUDIBLE GURGLING, NO COUGH/GAG/SWALLOW AT THIS TIME. REVERSAL AGENT FOR ATIVAN GIVEN PER EMAR. BLOOD PRESSURE SOFT NOT MAINTAINING MAP OF 65, SEE NEW ORDERS. BOLUS AND LEVO GIVEN PER EMAR. POST ADMINISTRATION OF FLUMAZENIL PT MOANED. SLIGHTLY MOVED HEAD AND SHOULDERS TO PAINFUL STIMULI. NO RESPONSE TO EXTREMITIES TO NAIL BED PRESSURE.
[2023-07-30] MEDS ORDERED: Calcium Gluconate 10% 1,000 MG in NS 50 ML IV ONE ×2 (05:25→15:50)
[2023-07-30] MEDS ORDERED: Ampicillin Sod/Sulbactam Sod 3 GM in NS 100 ML IV SCH (06:00)
--- NOTE | 2023-07-30 06:17 | NUR ---
SHIFT SUMMARY ADMITTED FROM ER. WAS [facility] 14 ON ARRIVAL THEN THROUGHOUT THE NIGHT STARTED TO BECOME MORE CONFUSED AND HALLUCINATING. CIWA 3-16. WAS VERY DROWSY AND NARCAN WAS GIVEN THEN BECAME VERY AGGITATED YELLING AND SWINGING AT DAUGHTER, PRNS GIVENS PER EMAR. THEN PT BECAME UNAROUSABLE AND FLUMAZENIL WAS GIVEN, NOT EFFECTIVE. IN SR/SB, BP HAS BEEN SOFT, A TOTAL OF 2L BOLUS NS GIVEN AND LEVOPHED INITIATED. ON 3L NC, WHEEZY/COARSE/DIMINISHED, HAD A BREATHING TREATMENT. NO LONGER HAS COUGH OR GAG. AUDIBLY MORE GURGLY, POSSIBLY ASPIRATED, DR RAMIRES IS AWARE. NPO. VELASQUEZ DRAINED 200ML. HEMATURIA WITH SMALL CLOTS, ORDER OBTAINED FOR BLADDER IRRIGATION. HAD 2 LIQUID BMS. DRESSING APPLIED TO OPEN WOUND ON LEFT FOOT. DAUGHTER AT BEDSIDE MOST OF NIGHT. NO VOICED CONCERNS AT THIS TIME. PT REMAINS LYING IN BED WITH EYES CLOSED, MAINTAING A MAP 65 ON 4MCG LEVO, MOANING AT TIMES. EQU771 ON 3LNC.
--- NOTE | 2023-07-30 08:00 | NUR ---
AM NOTE... ASSUMED CARE OF PT AT 0700, PT IS UNRESPONSIVE AT THIS TIME, RIGHT HAND WITHDRAWS SLIGHTLY FROM PAINFUL STIMULI. HE IS IN SR/SB 50'S-60'S, LEVOPHED IS RUNNING AT 4MCG/MIN TO KEEP MAPS>65 AT THIS TIME. 1+ EDEMA IS NOTED TO BLE. PULSES VERY FAINT TO PALPATION. THE PT'S BILATERAL FINER TIPS ARE DARK PURPLE, CAP REFIL IS >4 SECONDS. HE IS ON 3L NC WITH O2 SATS>92% L/S VERY COARSE T/O WITH SCATTERED WHEEZES DIM IN THE BASES, RR WAS 12-16 AND IS NOW IN THE 20'S, WORK OF BREATHING ALSO IS INCREASED FROM APROX 30 MINS PRIOR. BT ARE PRESENT AND VERY HYPOACTIVE, ABD IS SOFT TO PALPATION. PT'S VELASQUEZ IS PATENT AND DRAINING SCANT DARK MARIELOS URINE TO GRAVITY. DR. MURPHY AT THE BEDSIDE TO ASSESS THE PT'S UNRESPONSIVENESS, NEW ORDERS FOR LABS GIVEN. WILL CONTINUE TO MONITOR.
[2023-07-30 08:23] LABS: PCO2 Arterial 42.1 mmHg (35-45); PO2 Arterial 79.8 mmHg (80-100); pH Blood Arterial 7.25 (7.35-7.45)
[2023-07-30 08:47] LABS: C-REACTIVE PROTEIN, EXT RANGE 18.8 mg/dL (0.000-0.300); Magnesium, Blood 1.7 mg/dL (1.6-2.4)
[2023-07-30 08:59] LABS: Albumin, Blood 2.5 g/dL (3.4-5.0); Albumin/Globulin Ratio 0.8 (0.8-1.8); Bilirubin, Total 0.4 mg/dL (0.1-1.0); Bun/Creatinine Ratio 10.9 (12.0-20.0); Calcium, Blood 6.8 mg/dL (8.5-10.1); Creatinine, Blood 4.02 mg/dL (0.60-1.20); Globulin, Blood 3.2 g/dL (2.2-4.0); Phosphorus, Blood 7.3 mg/dL (2.5-4.9); Total Protein, Blood 5.7 g/dL (6.4-8.2)
[2023-07-30] MEDS ORDERED: MethylPREDNISolone Sod Succ 125 MG Vial IV SCH ×2 (09:00→10:00)
[2023-07-30] MEDS ORDERED: D5W-1/2NS 1,000 ML IV SCH (09:55)
--- NOTE | 2023-07-30 10:25 | NUR ---
PT UPDATE.... AT APROX 1000 THE PT'S O2 SATS STARTED TO TREND DOWN FROM 95-98% TO 88-90%, THE PT'S WORK OF BREATHING HAD INCEASED FROM THE EARLIER ASSESSMENT WELL. THE PT WAS PULLED UP IN THE BED AND THE HEAD OF BED WAS INCREASED WELL. DURING THIS THE PT STARTED TO WAKE UP, HE WAS ATTEMPTING TO MOVE HIS ARMS AND PULL HIS IVs OUT, HE SAID "I CAN'T MOVE MY ARMS" AND "GET THIS GUM OUT OF MY MOUTH!" THE PT WAS VERY GURGLY AND UNABLE TO COUGH UP THE SECRETIONS. ORAL CARE WAS DONE WITH THE SUCTION SWABS, LEGAL DOCUMENT ASSISTANT WAS NOTIFIED D/T THE CONTINUED DESATURATIONS DOWN TO THE LOW 80'S. DR. MURPHY AT THE BEDSIDE TO ASSESS THE PT. ORDERS FOR RT AND BIPAP/AIRVO WELL NT SUCTION WERE GIVEN. RT WAS CALLED. THE PT WAS NT SUCTIONED AND PLACED ON A NRB MASK AT 15L, HIS O2 SATS SLOWLY IMPROVED TO >95% WHILE ON THE NRB. ORDERS FOR A PICC LINE WERE ALSO GIVEN. THE PT'S SON ARRIVED TO THE UNIT AND WAS UPDATED BY DR. MURPHY. PT CONTINUES TO BE A FULL CODE AT THIS TIME. WILL CONTINUE TO MONITOR.
--- NOTE | 2023-07-30 10:47 | NUR ---
PT UPDATE... BIPAP SETTINGS ARE 14/7 AND 60%
[2023-07-30] MEDS ORDERED: Nicotine 21 MG PATCH TOP SCH (13:40)
[2023-07-30] MEDS ORDERED: Acetaminophen 650 MG Supp PR PRN (13:40)
[2023-07-30 13:59] LABS: Albumin, Blood 2.5 g/dL (3.4-5.0); Anion Gap 9 mmol/L (6-16); Blood Urea Nitrogen 46 mg/dL (8-24); Bun/Creatinine Ratio 14.7 (12.0-20.0); CO2, Blood 20 mmol/L (21-32); Calcium, Blood 6.9 mg/dL (8.5-10.1); Chloride, Blood 112 mmol/L (98-108); Creatinine, Blood 3.12 mg/dL (0.60-1.20); Glomerular Filtration Rate 21 (60-); Glucose, Blood 123 mg/dL (70-99); Phosphorus, Blood 5.4 mg/dL (2.5-4.9); Potassium, Blood 3.8 mmol/L (3.5-5.5); Sodium, Blood 141 mmol/L (136-145)
[2023-07-30] MEDS ORDERED: Thiamine HCl 100 MG in NS 50 ML IV SCH (14:30)
[2023-07-30] MEDS ORDERED: Folic Acid 1 MG in NS 50 ML IV SCH (14:30)
[2023-07-30] MEDS ORDERED: Lactated Ringer's 1,000 ML IV SCH (16:05)
[2023-07-30] MEDS ORDERED: Mag Sulfate 1 GM/D5% 100ML 100 ML IV STA (16:14)
[2023-07-30 17:32] LABS: Albumin, Blood 2.4 g/dL (3.4-5.0); Anion Gap 6 mmol/L (6-16); Blood Urea Nitrogen 43 mg/dL (8-24); Bun/Creatinine Ratio 16.5 (12.0-20.0); CO2, Blood 20 mmol/L (21-32); Chloride, Blood 112 mmol/L (98-108); Creatinine, Blood 2.61 mg/dL (0.60-1.20); Glomerular Filtration Rate 26 (60-); Glucose, Blood 154 mg/dL (70-99); Potassium, Blood 3.8 mmol/L (3.5-5.5); Sodium, Blood 138 mmol/L (136-145)
[2023-07-30] MEDS ORDERED: Lidocaine 2% Jelly Uro-Jet UR ONE (18:25)
--- NOTE | 2023-07-30 18:25 | NUR ---
Bedside RN request Palliative Care speak with pt's son. The physician and son just had a discussion and changed pt's code status from Full Code to DNR. Son talked about his dad's many good years. He states he does realize that changing code status doesn't make him any sicker, but states he does know his dad is "very sick", and voices concern that the patient may not make a full recovery. He reminisced, told me stories about when his dad was younger. He thanked me for the time. Plan to return tomorrow.
--- NOTE | 2023-07-30 18:39 | NUR ---
SHIFT SUMMARY... THE PT WAS ON THE BIPAP AT 14/7 AND 60% TITRATED DOWN TO 45% SINCE THE PREVIOUS NOTE. O2 SATS>90%, L/S CONTINUE TO BE COARSE WITH SCATTERED WHEEZES DIM IN THE BASES. AT 1130 THE PT'S ARMS STARTED TO FLEX AND SHAKE AND HIS EXTREMITIES WOULD BECOME VERY STIFF, DURING THIS TIME THE PT WAS NOT RESPONDING TO VERBAL STIMULI, HE WOULD WITHDRAW FROM PAIN. PROVIDER WAS NOTIFIED AND 0.5MG IV ATIVAN WAS GIVEN. THE PT CONTINUED TO BE UNRESPONSIVE. Q2 TURNS WERE PROVIDED TO PREVENT SKIN BREAKDOWN. THE PT'S FAMILY HAS BEEN AT THE BEDSIDE OFF AND ON T/O THIS SHIFT. THE PT'S VELASQUEZ DRAINED 250MLS OF DARK MARIELOS URINE TO GRAVITY, AFTER HIS VELASQUEZ WAS DRAINED THIS RN PROVIDED ORAL CARE THROUGH THE BIPAP MASK AT 1800. DURING THE ORAL CARE THE PT WOKE UP AND ATTEMPTED TO PULL THE MASK OFF HIS FACE. HE ALSO STATED "I HAVE TO PEE" THE PT WAS TOLD HE HAD A VELASQUEZ AND TO GO AHEAD A PEE, THE PT GRUNTED AND CLEAR YELLOW URINE WAS NOTED IN THE VELASQUEZ TUBING, A BLADDER SCAN WAS DONE THAT SHOWED 313 MLS OF URINE WAS IN THE BLADDER. THE PT'S VELASQUEZ TUBING WAS NOT KINKED DURING THIS TIME. TRACING LATHE SET UP OPERATOR WAS NOTIFIED. THE PT'S VELASQUEZ WAS FLUSHED WITH 20MLS OF THE VELASQUEZ FLUSHED EASILY AND DRAINED EASILY. WILL CONTINUE TO BLADDER SCAN AND MONITOR THE VELASQUEZ FOR DRAINAGE ISSUES. CALL LIGHT IN REACH WILL CONTINUE TO MONITOR UNTIL REPORT IS GIVEN TO ONCOMING RN.
--- NOTE | 2023-07-30 19:15 | NUR ---
ASSUMPTION OF CARE RECEIVED INTO CARE, REPORT GIVEN BY DAY RN. PT LYING IN BED WITH BIPAP ON, SON AND GRANDSON AT BEDSIDE. WOKE SUDDENLY AND BECAME AGGITATED PULLING BIPAP OFF, SWITCHED TO HFNC 6L, RT MADE AWARE. DR BURDEN BY TO ASSESS. IVF RATE DECREASED AND ORDER FOR LASIX ENTERED. ATIVAN GIVEN PER EMAR AND PER DR BURDEN TO SETTLE PT TO TOLERATE BIPAP. VELASQUEZ INSITU DRAINING MARIELOS URINE. VSS. NO VOICED CONCERNS BY FAMILY AT THIS TIME, PT STARTING TO SETTLE, SEE SHIFT ASSESSMENT.
[2023-07-30] MEDS ORDERED: Furosemide 10 MG/ML 4ML Vial IV ONE (19:30)
[2023-07-31] VITALS (27 sets, daily range): BP systolic 108–174; BP diastolic 31–137
[2023-07-31 05:26] LABS: Hematocrit 33.3 % (37.0-53.0); Mean Corpuscular HGB 34.8 pg (26.0-34.0); Mean Corpuscular Volume 105 fL (80-100); Mean Platelet Volume 10.2 fL (9.1-12.4); Platelet Count 112 K/mm3 (150-400); RDW Coefficient Variation 13.9 % (11.7-14.2); RDW Standard Deviation 53.1 fL (35.1-46.3); Red Blood Cell Count 3.16 M/mm3 (4.30-5.90); White Blood Cell Count 6.63 K/mm3 (4.00-11.30)
[2023-07-31] MEDS ORDERED: Pantoprazole Sodium 40 MG Injection IV SCH (06:00)
[2023-07-31] MEDS ORDERED: Pantoprazole Sodium 40 MG Tab PO SCH ×2 (06:00→09:00)
[2023-07-31 06:05] LABS: BAND PERCENT MAN 30 % (0-8); BASOPHILS PERCENT MAN 0 % (0-2); EOSINOPHILS PERCENT MAN 0 % (0-6); LYMPHOCYTES ABSOLUTE MAN 0.33 K/mm3 (0.84-5.20); LYMPHOCYTES PERCENT MAN 5 % (21-46); MONOCYTES ABSOLUTE MAN 0.13 K/mm3 (0.16-1.47); MONOCYTES PERCENT MAN 2 % (4-13); Magnesium, Blood 1.9 mg/dL (1.6-2.4); NEUTROPHILS ABSOLUTE MAN 6.16 K/mm3 (1.96-9.15); SEG NEUTROPHILS PERCENT MAN 63 % (41-73); TOTAL CELLS COUNTED 100
--- NOTE | 2023-07-31 06:05 | NUR ---
SHIFT SUMMARY ALERT AND ORIENTED, STARTED TO CLEAR MORE THROUGHOUT THE NIGHT. WHEN CHANGED IN THE MORNING PT WAS ABLE TO HOLD A CONVERSATIONG, APOLOGIZING FOR BEING INCONT STOOL, ABLE TO COMMUNICATE NEEDS BETTER. ATIVAN GIVEN X2 PER EMAR FOR ANXIETY/MILD AGGITATION. FENT GIVEN PER EMAR FOR BACK PAIN. REMAINS IN SR/SB, DID NOT REQUIRE LEVO, MAINTAINING MAP>70. TOLERATING BIPAP 14/12 30%, ABLE TO EXPEL THICK FRAGOSO SECRETIONS. CHEST COARSE/WHEEZY. HAD 1 DOSE LASIX, DIURESED WELL. INCONT ONE LIQUID STOOL. FAMILY AT BEDSIDE BEGINNING OF NIGHT. NO VOICED CONCERNS BY PT AT THIS TIME. CALL KIM IN REACH.
[2023-07-31 06:23] LABS: Albumin, Blood 2.3 g/dL (3.4-5.0); Albumin/Globulin Ratio 0.8 (0.8-1.8); Bilirubin, Total 0.4 mg/dL (0.1-1.0); Bun/Creatinine Ratio 21.3 (12.0-20.0); Calcium, Blood 7.8 mg/dL (8.5-10.1); Creatinine, Blood 1.78 mg/dL (0.60-1.20); Phosphorus, Blood 4.1 mg/dL (2.5-4.9); Potassium, Blood 3.6 mmol/L (3.5-5.5); Total Protein, Blood 5.3 g/dL (6.4-8.2)
--- NOTE | 2023-07-31 07:38 | NUR ---
AM NOTE... ASSUMED CARE OF PT AT 0700. PT IS A&O TO SELF, PLACE, FAMILY AND SITUATION, STATED THE YEAR WAS 2003. HE IS ON THE BIPAP AT 14/7 AND 30% WITH O2 SATS>92%. L/S COARSE T/O DIM IN THE MID AND LOWER BASES. RR 14-18. PT HAS A WEAK, PRODUCTIVE COUGH WITH A MODERATE AMOUNT OF THICK FRAGOSO/YELLOW SECRETIONS. HE IS IN SR IN THE 70'S-80'S BP IS STABLE WITH MAPS>70, LEVOPHED HAS BEEN OFF SINCE APROX 1700 YESTERDAY. HE HAS 1+ EDEMA NOTED TO HIS BLE, HIS BILATERAL HANDS/FINGERS ARE PINK AND WARM. HIS BLE ARE ALSO PINK AND WARM COMPARED TO YESTERDAY. VELASQUEZ IS PATENT AND DRAINING TO GRAVITY. WILL CONTINUE TO MONITOR.
[2023-07-31] MEDS ORDERED: Potassium Chl 20MEQ/Water100ML 100 ML IV STA (07:46)
[2023-07-31] MEDS ORDERED: Mag Sulfate 1 GM/D5% 100ML 100 ML IV STA (07:46)
[2023-07-31] MEDS ORDERED: Calcium Gluconate 10% 1,000 MG in NS 50 ML IV ONE (07:50)
[2023-07-31] MEDS ORDERED: Acetylcysteine 200 MG/ML 4ML Vial INH SCH ×2 (08:05→08:10)
[2023-07-31] MEDS ORDERED: NS 250 ML IV PRN (08:50)
[2023-07-31] MEDS ORDERED: NS 100 ML IV ONE (08:52)
[2023-07-31] MEDS ORDERED: Furosemide 10 MG/ML 4ML Vial IV SCH (09:00)
[2023-07-31] MEDS ORDERED: ChlordiazePOXIDE 25 MG Cap PO PRN (10:00)
[2023-07-31] MEDS ORDERED: Ampicillin Sod/Sulbactam Sod 3 GM in NS 100 ML IV SCH (10:00)
[2023-07-31] MEDS ORDERED: Lidocaine 2% Jelly Uro-Jet UR ONE (10:25)
--- NOTE | 2023-07-31 18:34 | NUR ---
SHIFT SUMMARY.... THE PT'S O2 HAS BEEN TITRATED FROM BIPAP TO 4L NC DOWN TO 2L NC. PT WAS GIVEN A BEDBATH/LINEN CHANGE THIS SHIFT. PT HAD 1 INCONT STOOL THIS SHIFT. THE PT HAS DONE WELL WITH SIPS OF WATER WHILE SITTING UP AND AWAKE. CWIA SCORES WERE 0-11 THIS SHIFT, HE WAS MEDICATED PER EMAR WITH 1MG IV ATIVAN WITH GOOD RESULTS. PT'S VELASQUEZ IS PATENT AND DRAINED CLEAR YELLOW URINE TO GRAVITY. THE PT'S SON WAS AT THE BEDSIDE OFF AND ON THIS SHIFT. THE WOUND THE PT'S LEFT FOOT WAS CLEANED AND DRESSED BY THIS RN. CALL LIGHT IN REACH WILL CONTINUE TO MONITOR UNTIL REPORT IS GIVEN TO ONCOMING RN.
[2023-07-31] MEDS ORDERED: HydrALAZINE HCl 20 MG / ML 1ML Vial IV PRN (19:40)
--- NOTE | 2023-07-31 19:50 | NUR ---
ASSUMPTION OF CARE PATIENT RESTING IN BED WITH EYES CLOSED. WAKES TO VERBAL STIMULI. PATIENT ABLE TO STATE THAT HE IS AT [facility] AND HIS NAME/, OTHERWISE CONFUSED. SPEECH SLOW AND MUMBLED. PATIENT MOVING ALL EXTREMITIES BUT WEAK. PATIENT WEARING 2L NC WITH SPO2 >95%, RR 20-25. ON CONTINUOUS MONITOR, SR 90s, BP STABLE AT THIS TIME. ATTENDS CHANGE AND CATH/JANE CARE COMPLETED DURING ASSESSMENT D/T PATIENT HAVING BM. VELASQUEZ IN PLACE DRAINING CLEAR YELLOW URINE. SOME BLOOD NOTED AT TIP OF PENIS. DENIES FURTHER NEEDS AT THIS TIME. BED IN LOW POSITION, CALL LIGHT IN REACH.
[2023-08-01] VITALS (45 sets, daily range): BP systolic 142–198; BP diastolic 53–136
[2023-08-01] MEDS ORDERED: MethylPREDNISolone Sod Succ 125 MG Vial IV SCH
[2023-08-01 04:17] LABS: Hematocrit 33.5 % (37.0-53.0); Hemoglobin 11.4 g/dL (13.5-17.5); Mean Corpuscular Volume 103 fL (80-100); Mean Platelet Volume 10.1 fL (9.1-12.4); NRBC ABSOLUTE 0.02 K/mm3 (0.00-0.02); NRBC Auto 0.2 /100 WBC (0.0-0.2); Platelet Count 106 K/mm3 (150-400); RDW Coefficient Variation 13.8 % (11.7-14.2); RDW Standard Deviation 51.8 fL (35.1-46.3); Red Blood Cell Count 3.26 M/mm3 (4.30-5.90); White Blood Cell Count 10.24 K/mm3 (4.00-11.30)
[2023-08-01 04:36] LABS: Albumin, Blood 2.4 g/dL (3.4-5.0); Anion Gap 6 mmol/L (6-16); Blood Urea Nitrogen 40 mg/dL (8-24); CO2, Blood 26 mmol/L (21-32); Calcium, Blood 8.2 mg/dL (8.5-10.1); Chloride, Blood 114 mmol/L (98-108); Creatinine, Blood 1.25 mg/dL (0.60-1.20); Glomerular Filtration Rate 62 (60-); Glucose, Blood 146 mg/dL (70-99); Phosphorus, Blood 2.4 mg/dL (2.5-4.9); Potassium, Blood 3.3 mmol/L (3.5-5.5); Sodium, Blood 146 mmol/L (136-145)
[2023-08-01 04:57] LABS: BAND PERCENT MAN 19 % (0-8); BASOPHILS PERCENT MAN 0 % (0-2); EOSINOPHILS PERCENT MAN 0 % (0-6); LYMPHOCYTES PERCENT MAN 4 % (21-46); METAMYELOCYTE PERCENT MAN 1 % (0-0); MONOCYTES PERCENT MAN 3 % (4-13); NEUTROPHILS ABSOLUTE MAN 9.42 K/mm3 (1.96-9.15); SEG NEUTROPHILS PERCENT MAN 73 % (41-73); TOTAL CELLS COUNTED 100
--- NOTE | 2023-08-01 06:19 | NUR ---
SHIFT SUMMARY PATIENT WAKES TO VERBAL STIMULI, ORIENTED x2-3, WILL WAKE CONFUSED AT TIMES AND WILL YELL OUT FOR FAMILY MEMBERS. PATIENT REDIRECTABLE. CIWA 8-13 OVERNIGHT, MEDICATED PER EMAR FOR WITHDRAWAL SYMPTOMS. BP HYPERTENSIVE AT TIMES, PRN HYDRALAZINE GIVEN PER EMAR. MONITOR READING SR 60-80s. PATIENT ALTERNATING BETWEEN 2L NC AND BIPAP DURING THE NIGHT. BIPAP SETTINGS 14/7/30% FIO2, SPO2 >90% ENTIRE SHIFT. VELASQUEZ IN PLACE DRAINING DARK YELLOW URINE TO GRAVITY, NOTED BLEEDING AT TIP OF PENIS. ATTENDS IN PLACE. TURNED Q2. NO OTHER ACUTE CHANGES DURING THE NIGHT. WILL REPORT TO DAY SHIFT RN.
[2023-08-01] MEDS ORDERED: Acetylcysteine 200 MG/ML 4ML Vial INH SCH (07:00)
--- NOTE | 2023-08-01 07:36 | NUR ---
ASSUMED CARE: PT RESTING IN BED, MUMBLING, CALLING OUT OCCASIONALLY. HAVING TO BE FREQUENTLY REMINDED TO NOT PULL AT LINES AND TUBES. 95% ON RA BUT TACHYPNEIC IN THE 20S. NSR ON TELE IN 80S. VELASQUEZ IN PLACE DRAINING CLEAR YELLOW URINE. IVF THROUGH PICC LINE.
[2023-08-01] MEDS ORDERED: Baclofen 10 MG Tab PO SCH (09:00)
[2023-08-01] MEDS ORDERED: Losartan Potassium 50 MG Tab PO SCH (09:00)
--- NOTE | 2023-08-01 10:03 | NUR ---
AFTER REVIEWING ATIVAN FOR LAST 24 HOURS IT WAS NOTED THAT PT HAS HAD 11 MG IN THE LAST [address] DOTY TO DISCUSS THIS AND ORDER FOR PRECEDEX RECIEVED. DOSE STARTED AT 0.4MCG/KG AT THIS TIME. BIPAP IN PLACE TO EASE WORK OF BREATHING.
[2023-08-01] MEDS ORDERED: Potassium Chloride 40 MEQ in NS 250 ML IV ONE (10:55)
--- NOTE | 2023-08-01 15:00 | NUR ---
CALL TO DR DOTY TO DISCUSS PT'S BLOOD PRESSURE. PT HYPERTENSIVE AND MEDS GIVEN ABLE PER ORDERS. NEW ORDER FOR IV LABETOLOL
[2023-08-01] MEDS ORDERED: Labetalol HCL 5 MG/ML 4ML Injection (Single Dose) IV PRN (15:10)
--- NOTE | 2023-08-01 15:30 | NUR ---
DRESSING TO PT'S COCCYX AND LEFT FOOT DRESSINGS CHANGED
--- NOTE | 2023-08-01 16:03 | NUR ---
CALL TO DR DOTY DUE TO PT'S BPS BEING EVEN MORE ELEVATED. NEW ORDERS FOR NOW DOSE OF HYDRALAZINE
[2023-08-01] MEDS ORDERED: HydrALAZINE HCl 20 MG / ML 1ML Vial IV ONE (16:05)
--- NOTE | 2023-08-01 18:52 | NUR ---
SHIFT SUMMARY: PT REMAINS ON BIPAP AT 14/7 AND 30% FIO2. MEDICATED THIS SHIFT WITH ATIVAN AND PRECEDEX RUNNING AT 0.2MCG/KG AT THIS TIME. MEDICATING FREQUENTLY FOR BLOOD PRESSURE. FAMILY AT BEDSIDE AT THIS TIME.
[2023-08-01] MEDS ORDERED: HydrALAZINE HCl 20 MG / ML 1ML Vial IV PRN (21:15)
--- NOTE | 2023-08-01 23:01 | NUR ---
ASSUMED CARE CARE WAS ASSUMED OF PT AT 1900, REPORT GIVEN BY ELLIE AYALA. PT A/O TO SELF. PT ABLE TO STATE . CIWA 18. MEDICATING PT PER EMAR. WHEN PT IS AWAKE, AGITATED AND ASKING FOR SON OR DAUGHTER. PT DIFFICULT TO CONSOLE, ATTEMPTS TO TAKE BIPAP OFF FREQUENTLY. PRECEDEX GTT INFUSING, SEE FLOWSHEET. BIPAP SETTINGS 14/7 30% WITH BACKUP RATE 12. RR 18-26 DEPENDING ON IF PT SLEEPING OR NOT. O2 SATS >95% AT THIS TIME. CARDIAC MONITORING REFLECTS SINUS KARI, HR 50s. PT HYPERTENSIVE, SBP > 160. NOTIFIED HOSPITALIST. MEDICATING PT PER EMAR. VELASQUEZ PATENT AND DRAINING TO GRAVITY, MARIELOS/ORANGE URINE NOTED.
[2023-08-02] VITALS (78 sets, daily range): BP systolic 122–197; BP diastolic 79–116
--- NOTE | 2023-08-02 00:46 | NUR ---
HTN NOTIFIED HOSPITALIST OF PT'S PERSISTENT HTN THAT ISN'T RESPONDING TO CURRENT MEDICATIONS. ORDERS RECIEVED, SEE EMAR.
--- NOTE | 2023-08-02 02:36 | NUR ---
HTN NOTIFIED HOSPITALIST OF PT'S HTN AFTER VASOTEC ADMIN. NITRO GTT ORDERED WITH INSTRUCTIONS TO TURN OFF ONCE SBP < 160.
[2023-08-02 03:49] LABS: Hematocrit 30.7 % (37.0-53.0); Hemoglobin 10.2 g/dL (13.5-17.5); Mean Corpuscular HGB 34.7 pg (26.0-34.0); Mean Corpuscular HGB Conc 33.2 g/dL (31.5-36.5); Mean Corpuscular Volume 104 fL (80-100); Mean Platelet Volume 11.1 fL (9.1-12.4); NRBC ABSOLUTE 0.04 K/mm3 (0.00-0.02); NRBC Auto 0.4 /100 WBC (0.0-0.2); Platelet Count 56 K/mm3 (150-400); RDW Coefficient Variation 14.8 % (11.7-14.2); RDW Standard Deviation 56.1 fL (35.1-46.3); Red Blood Cell Count 2.94 M/mm3 (4.30-5.90); White Blood Cell Count 9.49 K/mm3 (4.00-11.30)
[2023-08-02 04:18] LABS: Albumin, Blood 2.1 g/dL (3.4-5.0); Albumin/Globulin Ratio 0.8 (0.8-1.8); BAND PERCENT MAN 12 % (0-8); BASOPHILS PERCENT MAN 0 % (0-2); Bilirubin, Total 2.2 mg/dL (0.1-1.0); Bun/Creatinine Ratio 32.7 (12.0-20.0); Calcium, Blood 7.9 mg/dL (8.5-10.1); Creatinine, Blood 1.13 mg/dL (0.60-1.20); EOSINOPHILS PERCENT MAN 0 % (0-6); Globulin, Blood 2.6 g/dL (2.2-4.0); LYMPHOCYTES ABSOLUTE MAN 0.18 K/mm3 (0.84-5.20); LYMPHOCYTES PERCENT MAN 2 % (21-46); METAMYELOCYTE ABSOLUTE MAN 0.09 K/mm3 (0.00-0.00); METAMYELOCYTE PERCENT MAN 1 % (0-0); MONOCYTES ABSOLUTE MAN 0.18 K/mm3 (0.16-1.47); MONOCYTES PERCENT MAN 2 % (4-13); MYELOCYTE ABSOLUTE MAN 0.09 K/mm3 (0.00-0.00); MYELOCYTE PERCENT MAN 1 % (0-0); NEUTROPHILS ABSOLUTE MAN 8.92 K/mm3 (1.96-9.15); Potassium, Blood 3.4 mmol/L (3.5-5.5); SEG NEUTROPHILS PERCENT MAN 82 % (41-73); TOTAL CELLS COUNTED 100; Total Protein, Blood 4.7 g/dL (6.4-8.2)
[2023-08-02] MEDS ORDERED: Potassium Chloride 40 MEQ in NS 250 ML IV ONE (05:30)
--- NOTE | 2023-08-02 05:37 | NUR ---
SHIFT SUMMARY PT REMAINS A/O TO SELF. CIWA RANGES FROM 10-18, MEDICATING PT PER EMAR AND REDUCING STIMULI. CPOT 2 AT THIS TIME, MEDICATED PT PER EMAR FOR PAIN THE SHIFT. PRECEDEX GTT INFUSING, SEE FLOWSHEET. PT ABLE TO FOLLOW COMMANDS AT TIME. WHEN PT IS AGITATED PT IS DIFFICULT TO CONSOLE. PT ON BIPAP AT THIS TIME, 14/7 30%. PT TOLERATING 3 L N/C THIS SHIFT BUT WAS SWITCHED BACK TO BIPAP D/T INCREASED COARSENESS IN LUNG JJ. O2 SATS REMAINED > 95%. CARDIAC MONITORING REFLECTS SINUS KARI, HR 50s. BP HYPERTENSIVE, NITRO GTT STARTED THIS SHIFT, SEE PREVIOUS NURSE NOTES. SEE FLOWSHEET FOR NITRO GTT TITRATIONS. GOAL FOR NITRO PER HOSPITALIST IS SBP < 160. VELASQUEZ PATENT AND DRAINING ORANGE URINE TO GRAVITY. PICC TO CHARIS PATENT, GTTs INFUSING.
--- NOTE | 2023-08-02 09:08 | NUR ---
ASSUMED CARE BEDSIDE REPORT FROM MATTHEW AYALA AT 0700. PT RESTING IN BED. PRECEDEX GTT INFUSING AT SHIFT CHANGE, PLACED ON STANDBY. RASS -2. PT ORIENTED TO SELF ONLY, DOES NOT FOLLOW COMMANDS. SR, RATE 70'S. NITRO GTT INFUSING FOR SBP <160. LUNGS DIM IN BASES. REMOVED BIPAP, ON RA, O2 SATS >90%. NON PRODUCTIVE COUGH. ST EVAL THIS AM, ADVANCE DIET TOLERATED. ABD ROUND, SOFT, NON TENDER. BT X 4. VELASQUEZ PATENT, DRAINING MARIELOS URINE TO GRAVITY. PICC TO [facility], DRESSING C/D/I. WILL CONTINUE PLAN OF CARE.
[2023-08-02] MEDS ORDERED: Atenolol 50 MG Tab PO ONE (16:25)
[2023-08-02] MEDS ORDERED: Isosorbide Mononitrate 60 MG TABCR PO ONE (16:25)
--- NOTE | 2023-08-02 18:02 | NUR ---
SHIFT SUMMARY PT'S ORIENTATION IMPROVED THIS SHIFT. ORIENTED TO SELF, FAMILY, AND PLACE. ABLE TO MAKE NEEDS KNOWN. CIWA <8. MEDICATED c LIBRIUM ONCE. FAMILY REPORTS PERIODS OF SOBRIETY c WITHDRAWALS. FOLLOWS SIMPLE COMMANDS. GENERALIZED WEAKNESS. EVAL BY ST, DIET ADVANCED. TOLERATING PO WELL c ASSIST. NITRO CONTINUED FOR BP, HOME MEDICATIONS ORDERED AND GIVEN. SR, RATE 80'S. 3L VIA NC. LUNGS CLEAR. OCCASIONAL COUGH. PICC TO LUE. VELASQUEZ PATENT, DRAINING TO GRAVITY, 1400 ML OUT THIS SHIFT. WILL CONTINUE PLAN OF CARE UNTIL REPORT TO ONCOMING NURSE.
--- NOTE | 2023-08-02 19:55 | NUR ---
ASSUMED CARE PT IS A&O TO SELF AND PLACE ([place], DOES NOT KNOW WHAT TOWN [place] IN). PT BELIEVES IT IS 2014. ANSWERS QUESTIONS AND COMMUNICATES APPROPRIATELY. GENERALIZED WEAKNESS. NITRO GTT INFUSING PER EMAR. MEDICATED W/ LIBRIUM PER EMAR AND ABLE TO TAKE MEDS W/ WATER WELL. VELASQUEZ PATENT AND DRAINING TO GRAVITY. DENIES CP, SOB, OR NAUSEA.
[2023-08-02] MEDS ORDERED: Ticagrelor 90 MG TABLET PO SCH (21:00)
[2023-08-02] MEDS ORDERED: Polyethylene Glycol 3350 17 gm PO SCH (23:25)
[2023-08-03] VITALS (85 sets, daily range): BP systolic 141–211; BP diastolic 86–129
--- NOTE | 2023-08-03 04:13 | NUR ---
UPDATE DR RAMIRES IN UNIT AND NOTIFIED ABOUT PT'S HTN. ORDERS TO GIVE ATENOLOL AND IMDUR DOSE NOW (SEE ORDER).
[2023-08-03] MEDS ORDERED: Isosorbide Mononitrate 60 MG TABCR PO ONE (04:15)
[2023-08-03] MEDS ORDERED: Atenolol 50 MG Tab PO ONE (04:15)
[2023-08-03 04:26] LABS: Hematocrit 30.4 % (37.0-53.0); Hemoglobin 10.5 g/dL (13.5-17.5); Mean Corpuscular HGB 34.9 pg (26.0-34.0); Mean Corpuscular HGB Conc 34.5 g/dL (31.5-36.5); Mean Corpuscular Volume 101 fL (80-100); NRBC ABSOLUTE 0.08 K/mm3 (0.00-0.02); NRBC Auto 0.6 /100 WBC (0.0-0.2); RDW Coefficient Variation 15.8 % (11.7-14.2); RDW Standard Deviation 57.7 fL (35.1-46.3); Red Blood Cell Count 3.01 M/mm3 (4.30-5.90)
[2023-08-03 04:45] LABS: Platelet Count 28 K/mm3 (150-400)
[2023-08-03 05:02] LABS: Albumin, Blood 2.7 g/dL (3.4-5.0); Albumin/Globulin Ratio 0.9 (0.8-1.8); BAND PERCENT MAN 3 % (0-8); BASOPHILS PERCENT MAN 0 % (0-2); Bun/Creatinine Ratio 30.8 (12.0-20.0); Calcium, Blood 8.4 mg/dL (8.5-10.1); Creatinine, Blood 1.72 mg/dL (0.60-1.20); EOSINOPHILS PERCENT MAN 0 % (0-6); Globulin, Blood 2.9 g/dL (2.2-4.0); LYMPHOCYTES ABSOLUTE MAN 0.28 K/mm3 (0.84-5.20); LYMPHOCYTES PERCENT MAN 2 % (21-46); MONOCYTES ABSOLUTE MAN 0.28 K/mm3 (0.16-1.47); MONOCYTES PERCENT MAN 2 % (4-13); MYELOCYTE ABSOLUTE MAN 0.14 K/mm3 (0.00-0.00); MYELOCYTE PERCENT MAN 1 % (0-0); NEUTROPHILS ABSOLUTE MAN 13.68 K/mm3 (1.96-9.15); Potassium, Blood 3.2 mmol/L (3.5-5.5); SEG NEUTROPHILS PERCENT MAN 92 % (41-73); TOTAL CELLS COUNTED 100; Total Protein, Blood 5.6 g/dL (6.4-8.2)
--- NOTE | 2023-08-03 06:28 | NUR ---
SHIFT SUMMARY PT CURRENTLY RESTING QUIETLY IN BED. PT WAS FREQUENTLY UP AND AGITATED, YELLING FOR "MAN" AND "YAHAIRA", REDIRECTABLE BY REMINDING PT THAT HE IS IN PT. MENTATION APPEARS TO BE THE SAME. DIFFICULTY MANAGING BLOOD PRESSURE TONIGHT W/ NITROGLYCERIN BEING TITRATED UP TO 120MCG/MIN (SEE FLOWSHEET FOR PRESSURES AND TITRATIONS). LABETALOL APPEARS TO WORK WELL FOR A SHORT AMOUNT OF TIME. ONE TIME DOSE OF ATENOLOL AND IMDUR GIVEN DURING THE NIGHT PER ORDER, WHICH DOES NOT APPEAR TO HAVE HELPED.
[2023-08-03] MEDS ORDERED: Potassium Chloride 40 MEQ in NS 250 ML IV ONE (06:50)
[2023-08-03] MEDS ORDERED: Atenolol 50 MG Tab PO SCH (09:00)
[2023-08-03] MEDS ORDERED: Aspirin 81 MG Chew PO SCH (09:00)
[2023-08-03] MEDS ORDERED: Atorvastatin 40 MG Tab PO SCH (09:00)
--- NOTE | 2023-08-03 09:30 | NUR ---
AM NOTE... ASSUMED CARE OF PT AT 0700, PT IS A&O TO SELF, PLACE, PRESIDENT BUT NOT THE YEAR OR WHY HE IS AT THE HOSPITAL. HE IS LETHARGIC AND FALLS ASLEEP QUICKLY. HE IS ON THE NITRO DRIP RUNNING AT 120MCG TO KEEP SBPs <160. PT IS IN SR IN THE 70'S. 1+ EDEMA NOTED TO HIS BLE. DEPENDENT EDEMA NOTED TO HIS BILATERAL HANDS. HE IS ON 3L NC WITH O2 SATS>90% L/S COARSE IN THE UPPER LOBES DIM T/O. BT PRESENT AND HYPOACTIVE, PT HAS HAD 2 LOOSE BROWN STOOLS THIS AM. WHEN NOT LETHARGIC AND SLEEPY THE PT IS REFUSING TO TAKE HIS PO MEDICATIONS STATING "I'M TIRED OF TAKING ALL THESE MEDS! I JUST WANT TO ." PALLIATIVE CARE IS INVOLVED IN THE CASE. WILL CONTINUE TO MONITOR
[2023-08-03] MEDS ORDERED: Carvedilol 6.25 MG Tab PO SCH ×2 (11:00→17:00)
[2023-08-03] MEDS ORDERED: Isosorbide Mononitrate 60 MG TABCR PO SCH (11:00)
[2023-08-03 11:10] LABS: Base Excess Venous 6.5 mmol/L; Bicarbonate Venous 29.6 mmol/L (24.0-30.0); PCO2 Venous 40.9 mmHg (38-42); pH Blood Venous 7.48 (7.34-7.37)
--- NOTE | 2023-08-03 18:24 | NUR ---
SHIFT SUMMARY... PT HAS BEEN ON 3L NC WITH O2 SATS>92%. PT HAS REFUSED ALL PO MEDS THIS SHIFT. NITRO DRIP HAS BEEN RUNNING TO KEEP SBPs <160. OTHER VS STABLE T/O THIS SHIFT. PT HAS BEEN HAVING MULTIPLE LOOSE BROWN STOOLS T/O THIS SHIFT. VELASQUEZ IS PATENT AND DRAINING TO GRAVITY, PT'S URETHRA IS OOZING BLOOD, CATH CARE DONE Q2 HRS THIS SHIFT. PT HAS BEEN ARGUMENTATIVE WITH STAFF, REFUSING MEDICATIONS AND STATING "I JUST WANT TO GO HOME." THE PT PULLED OFF THE NICOTINE PATCH THAT WAS PLACED ON HIS ARM THIS AM. HE ALSO HAS BEEN PULLING OFF HIS TELE LEADS, SPO2 PROBE AND NC ALL THIS SHIFT. BED ALARM IS ON D/T THE PT ATTEMPTING TO CLIMB OUT OF BED SEVERAL TIMES. THIS AFTERNOON THE RT WENT INTO THE ROOM AFTER SOME OF THE PT'S FAMILY WAS VISITING, SHE FOUND A PRESCRIPTION BOTTLE FROM [employer] THAT HAD A CIGGARETTE INSIDE. SHE LET THIS RN KNOW AND THE MILK ROUTE DELIVERER ALSO WAS MADE AWARE. THIS RN SEARCHED THE PT'S BED/BELONGINGS AND DID NOT FIND ANY FURTHER IGNITION SOURCES. PT AND FAMILY EDUCATED ON FIRE RISKS IN THE HOSPITAL WELL WHEN O2 IS IN USE. CALL LIGHT IN REACH WILL CONTINUE TO MONITOR UNTIL REPORT IS GIVEN TO ONCOMING RN.
--- NOTE | 2023-08-03 19:15 | NUR ---
ASSUMPTION OF CARE RECEIVED INTO CARE, BEDSIDE REPORT GIVEN BY DAY RN. ON NITRO INFUSION, CHECKED WITH EMAR. VSS, IN NSR. PT LYING IN BED WITH EYES CLOSED, RESPONDS TO VERBAL STIMULI. NO VOICED CONCERNS AT THIS TIME. CALL KIM IN REACH.
[2023-08-04] VITALS (94 sets, daily range): BP systolic 129–178; BP diastolic 69–126
[2023-08-04 04:42] LABS: Hematocrit 21.5 % (37.0-53.0); Hemoglobin 7.5 g/dL (13.5-17.5); Mean Corpuscular HGB 34.6 pg (26.0-34.0); Mean Corpuscular HGB Conc 34.9 g/dL (31.5-36.5); Mean Corpuscular Volume 99 fL (80-100); NRBC ABSOLUTE 0.08 K/mm3 (0.00-0.02); NRBC Auto 0.7 /100 WBC (0.0-0.2); RDW Coefficient Variation 16.7 % (11.7-14.2); RDW Standard Deviation 59.2 fL (35.1-46.3); Red Blood Cell Count 2.17 M/mm3 (4.30-5.90); White Blood Cell Count 10.91 K/mm3 (4.00-11.30)
[2023-08-04 04:52] LABS: Platelet Count 13 K/mm3 (150-400)
[2023-08-04 05:03] LABS: BAND PERCENT MAN 3 % (0-8); BASOPHILS PERCENT MAN 0 % (0-2); EOSINOPHILS PERCENT MAN 0 % (0-6); LYMPHOCYTES ABSOLUTE MAN 0.32 K/mm3 (0.84-5.20); LYMPHOCYTES PERCENT MAN 3 % (21-46); MONOCYTES ABSOLUTE MAN 0.43 K/mm3 (0.16-1.47); MONOCYTES PERCENT MAN 4 % (4-13); MYELOCYTE ABSOLUTE MAN 0.21 K/mm3 (0.00-0.00); MYELOCYTE PERCENT MAN 2 % (0-0); NEUTROPHILS ABSOLUTE MAN 9.92 K/mm3 (1.96-9.15); SEG NEUTROPHILS PERCENT MAN 88 % (41-73); TOTAL CELLS COUNTED 100
[2023-08-04 05:08] LABS: Albumin, Blood 2.1 g/dL (3.4-5.0); Albumin/Globulin Ratio 0.7 (0.8-1.8); Bilirubin, Total 1.9 mg/dL (0.1-1.0); Bun/Creatinine Ratio 30.5 (12.0-20.0); Calcium, Blood 6.8 mg/dL (8.5-10.1); Creatinine, Blood 1.67 mg/dL (0.60-1.20); Globulin, Blood 2.9 g/dL (2.2-4.0); Phosphorus, Blood 2.4 mg/dL (2.5-4.9); Potassium, Blood 2.8 mmol/L (3.5-5.5)
[2023-08-04] MEDS ORDERED: POTASSIUM PHOSPHATE IV ONE (05:15)
[2023-08-04] MEDS ORDERED: [UNRECOGNIZED DRUG - OTHER] IV ONE (05:15)
[2023-08-04] MEDS ORDERED: Sodium Chloride 0.45% 1,000 ML IV SCH (05:20)
[2023-08-04] MEDS ORDERED: Potassium Phosphate Dibasic 30 MM in Dextrose 5% 500 ML IV STA (05:22)
--- NOTE | 2023-08-04 06:10 | NUR ---
SHIFT SUMMARY ORIENTED TO PLACE, PERSON, YEAR. CONFUSED AT TIMES. AT BEGINNING OF NIGHT WAS CONSTANTLY ASKING FOR A CIGARETTE AND BECOMING HANDSY. NO INCREASE IN AGGITATION, RESTLESS AT TIMES. EASILY REDIRECTABLE. ANALGESIC GIVEN PER EMAR FOR BACK PAIN. CONTINUES ON NITRO GTT HIGH 170MCG, HYDRALAZINE X2 AND LABETALOL X1, HYDRALAZINE MORE EFFECTIVE. PT ALLOWED GUZZLER BUILDER TO ADMINISTER DAY TIME CARVEDILOL AND LOSARTAN. REMAINS IN NSR. SBP HIGH 180S. ON 2LNC OVERNIGHT. VELASQUEZ DRAINED 950. DR RAMIRES PHONED THIS MORNING REGARDING LAB WORK, CRITICAL PLATELETS OF 13. HEMOGLOBIN DROPPING, LOW POTASSIUM AND PHOSP, HIGH SODIUM. ORDERS OBTAINED FOR IVF AND KPHOS REPLACEMENT. SEE EMAR. DAUGHTER PHONE AT , UPDATE PROVIDED. NO CONCERNS AT THIS TIME. CALL KIM IN REACH. REMAINS LYING IN BED WITH EYES CLOSED, APPEARS COMFORTABLE AT THIS TIME.
[2023-08-04] MEDS ORDERED: Isosorbide Mononitrate 60 MG TABCR PO SCH ×2 (09:00)
--- NOTE | 2023-08-04 09:28 | NUR ---
AM NOTE... ASSUMED CARE OF PT AT 0700, PT IS A&O TO SELF. HE IS IN SR IN THE 70'S. HE IS ON NITRO DRIP RUNNING AT 120MCG/MIN TO KEEP SBPs <160. CURRENTLY HIS SBPs ARE 140'S-150'S. HE IS ON 2L NC WITH O2 SATS>90% L/S EXP WHEEZES T/O DIM AND SLIGHT RALES IN THE LOWER LOBES. PT IS REFUSING TO TAKE HIS PO MEDS AGAIN THIS AM STATING "I DON'T WANT NO DOPE FROM YOU." THIS RN ATTEMPTED TO EXPLAINE TO THE PT WHAT HIS MEDS WERE AND WHAT THEY WERE FOR BUT THE PT CONTINUED TO SAY "I DON'T WANT NO DOPE FROM YOU!". PT HAS BEEN YELLING OUT "MAMMA!" AND "I WANT MY BLACK SHOES!" THIS RN ATTEMPTED TO RE-ORIENT BUT PT CONTINUES TO YELL OUT AT STAFF. PT'S VELASQUEZ IS PATENT AND DRAINING TO GRAVITY. CALL LIGHT IN REACH, WILL CONTINUE TO MONITOR.
[2023-08-04] MEDS ORDERED: Carvedilol 6.25 MG Tab PO ONE (11:15)
[2023-08-04 12:48] LABS: BASOPHILS ABSOLUTE AUTO 0.02 K/mm3 (0.00-0.23); BASOPHILS PERCENT AUTO 0 % (0-2); EOSINOPHILS PERCENT AUTO 0 % (0-6); Hemoglobin 8.1 g/dL (13.5-17.5); IMMATURE GRAN PERCENT AUTO 6 % (0-1); LYMPHOCYTES ABSOLUTE AUTO 0.44 K/mm3 (0.84-5.20); LYMPHOCYTES PERCENT AUTO 4 % (21-46); MONOCYTES ABSOLUTE AUTO 0.51 K/mm3 (0.16-1.47); MONOCYTES PERCENT AUTO 4 % (4-13); Mean Corpuscular HGB 33.5 pg (26.0-34.0); Mean Corpuscular HGB Conc 33.8 g/dL (31.5-36.5); Mean Corpuscular Volume 99 fL (80-100); NEUTROPHILS ABSOLUTE AUTO 10.12 K/mm3 (1.96-9.15); NEUTROPHILS PERCENT AUTO 86 % (41-73); NRBC ABSOLUTE 0.09 K/mm3 (0.00-0.02); NRBC Auto 0.8 /100 WBC (0.0-0.2); RDW Coefficient Variation 17.4 % (11.7-14.2); RDW Standard Deviation 60.7 fL (35.1-46.3); Red Blood Cell Count 2.42 M/mm3 (4.30-5.90); White Blood Cell Count 11.79 K/mm3 (4.00-11.30)
[2023-08-04 12:58] LABS: Platelet Count 14 K/mm3 (150-400)
[2023-08-04 13:03] LABS: International Normalized Ratio 1.27; Prothrombin Time Results 13.2 Sec (9.7-11.5)
[2023-08-04 13:11] LABS: Albumin, Blood 2.5 g/dL (3.4-5.0); Albumin/Globulin Ratio 0.9 (0.8-1.8); Bilirubin, Total 2.3 mg/dL (0.1-1.0); Calcium, Blood 7.9 mg/dL (8.5-10.1); Globulin, Blood 2.7 g/dL (2.2-4.0); Potassium, Blood 3.4 mmol/L (3.5-5.5); Total Protein, Blood 5.2 g/dL (6.4-8.2)
[2023-08-04] MEDS ORDERED: Carvedilol 6.25 MG Tab PO SCH (17:00)
[2023-08-04 17:30] LABS: Albumin, Blood 2.5 g/dL (3.4-5.0); Albumin/Globulin Ratio 0.9 (0.8-1.8); Bilirubin, Total 2.4 mg/dL (0.1-1.0); Bun/Creatinine Ratio 28.5 (12.0-20.0); Calcium, Blood 7.9 mg/dL (8.5-10.1); Globulin, Blood 2.7 g/dL (2.2-4.0); Potassium, Blood 3.4 mmol/L (3.5-5.5); Total Protein, Blood 5.2 g/dL (6.4-8.2)
[2023-08-04] MEDS ORDERED: D5W-LR 1,000 ML IV SCH (17:45)
--- NOTE | 2023-08-04 17:51 | NUR ---
SHIFT SUMMARY... PT CONTINUES ON THE NC AT 2L WITH O2 SATS>90%. NITRO DRIP HAS BEEN OFF SINCE 1630 WITH SBPs <160. THE PT HAS HAD 3 LOOSE/SOFT BROWN STOOLS THIS SHIFT. PT'S VELASQUEZ IS PATENT AND DRAINING TO GRAVITY. DR. PAULINO AND DR. CHAMBERS WERE BOTH CONSULTED TODAY. CALL LIGHT IN REACH WILL CONTINUE TO MONITOR UNTIL REPORT IS GIVEN TO ONCOMING RN
[2023-08-04 18:49] LABS: BASOPHILS ABSOLUTE AUTO 0.02 K/mm3 (0.00-0.23); BASOPHILS PERCENT AUTO 0 % (0-2); EOSINOPHILS PERCENT AUTO 0 % (0-6); Hematocrit 23.4 % (37.0-53.0); Hemoglobin 8.2 g/dL (13.5-17.5); IMMATURE GRAN PERCENT AUTO 5 % (0-1); LYMPHOCYTES ABSOLUTE AUTO 0.47 K/mm3 (0.84-5.20); LYMPHOCYTES PERCENT AUTO 4 % (21-46); MONOCYTES ABSOLUTE AUTO 0.47 K/mm3 (0.16-1.47); MONOCYTES PERCENT AUTO 4 % (4-13); Mean Corpuscular HGB 34.5 pg (26.0-34.0); Mean Corpuscular Volume 98 fL (80-100); NEUTROPHILS ABSOLUTE AUTO 11.19 K/mm3 (1.96-9.15); NEUTROPHILS PERCENT AUTO 87 % (41-73); NRBC ABSOLUTE 0.08 K/mm3 (0.00-0.02); NRBC Auto 0.6 /100 WBC (0.0-0.2); RDW Coefficient Variation 17.8 % (11.7-14.2); RDW Standard Deviation 62.4 fL (35.1-46.3); Red Blood Cell Count 2.38 M/mm3 (4.30-5.90); White Blood Cell Count 12.85 K/mm3 (4.00-11.30)
[2023-08-04 18:52] LABS: Platelet Count 14 K/mm3 (150-400)
--- NOTE | 2023-08-04 20:00 | NUR ---
ASSUMED CARE OF PT AT 1900. REPORT RECEIVED FROM OFFGOING RN. PT'S FAMILY AT BEDSIDE. AWARE OF PENDING TRANSFER TO [facility] IF BED COMES AVAILABLE. PT HAS WITHDRAWN AFFECT. NO YELLING OR AGITATION TO NOTE. PT TO RECEIVE TWO UNITS FFP THIS EVENING. WILL REVIEW CHART AND PLAN OF CARE FOR THIS PT.
--- NOTE | 2023-08-04 20:10 | NUR ---
ASSUMED CARE OF PT AT 1900. REPORT RECEIVED. PT PRESENTS IN BED. FAMILY IN ROOM. PT DOES BREATHING TREATMENT WITHOUT PULLING AT MASK. RECEIVING FIRST OF TWO UNITS FFP. DAUGHTER ASKS QUESTIONS WITH THOSE BEING ANSWERED. SHE WANTS TO GO GET PT SOME MASHED POTATOES TO EAT. WILL ALLOW LONG PT AWAKE ENOUGH AND IS MONITORED FOR SAFETY. WILL REVIEW CHART AND PLAN OF CARE FOR THIS PT.
[2023-08-04 20:11] LABS: Source, Urine Foley catheter
[2023-08-04 20:17] LABS: Appearance, Urine Hazy (Clear); Bilirubin, Urine Neg (Neg); Blood, Urine 5+ (Neg); Color, Urine Amber (P-Yellow); Glucose Qualitative, Urine 2+ (Neg); Ketones, Urine Neg (Neg); Leukocyte Esterase, Urine Neg (Neg); Nitrite, Urine Neg (Neg); Protein, Urine 3+ (Neg); Urobilinogen, Urine NORM (Normal)
[2023-08-04 20:28] LABS: Amorphous Light (0-Heavy)
[2023-08-04 20:29] LABS: White Blood Cells, Urine 0-2 /hpf (0-5)
[2023-08-04 20:30] LABS: Bacteria Rare /hpf; Squamous Epithelial Cells Not Seen /hpf (Few)
--- NOTE | 2023-08-04 22:29 | NUR ---
PT TRANSFERS TO [facility] AT 2205. REPORT CALLED TO LUCY MONTAÑO AT [facility] 7A ROOM 5. REPORT DONE IN SBAR FASHION. ALLOWED FOR QUESTIONS. FAMILY HAS GONE HOME AND HAVE REMOVED PT'S BELONGINGS. PT IN STABLE CONDITION. MEDICATED PT WITH 25 MCG'S FENTNAYL FOR CHRONIC BACK PAIN AND ANTICIPATION OF PAIN WITH TRANSPORT.
[2023-08-05] MEDS ORDERED: Thiamine HCl 500 MG in NS 100 ML IV SCH (09:00)
[2023-08-05 13:23] LABS: HEP-IND THROMBOCYTOPEN PF4,IGG 0.048 OD (<=0.399)
[2023-08-06 08:15] LABS: HAPTOGLOBIN <10 mg/dL (30-200)
[2023-08-06] MEDS ORDERED: Thiamine HCl 100 MG Tab PO SCH (09:00)
== END 2023-08-04 22:06 | disposition short-term general hospital (02) | DRG 871 ==
LOC: ER 16:57 → ICUE 19:27
PROVIDERS: Emergency Medicine; Family Medicine; Hospitalist; Internal Medicine; ADMIT Internal Medicine
PROC: 02HV33Z Insertion of Infusion Device into Superior Vena Cava, Percutaneous Approach (ICD-10-PCS; principal; 2023-07-29)
PROC: 0T9B70Z Drainage of Bladder with Drainage Device, Via Natural or Artificial Opening (ICD-10-PCS; 2023-07-29)
PROC: 3E03329 Introduction of Other Anti-infective into Peripheral Vein, Percutaneous Approach (ICD-10-PCS; 2023-07-29)
PROC: 3E033XZ Introduction of Vasopressor into Peripheral Vein, Percutaneous Approach (ICD-10-PCS; 2023-07-30)
PROC: 4A133R1 Monitoring of Arterial Saturation, Peripheral, Percutaneous Approach (ICD-10-PCS; 2023-07-30)
PROC: HZ2ZZZZ Detoxification Services for Substance Abuse Treatment (ICD-10-PCS; 2023-08-03)
PROC: 30233K1 Transfusion of Nonautologous Frozen Plasma into Peripheral Vein, Percutaneous Approach (ICD-10-PCS; 2023-08-04)
DX: A41.9 Sepsis, unspecified organism (principal); G93.41 Metabolic encephalopathy; J69.0 Pneumonitis due to inhalation of food and vomit; K85.90 Acute pancreatitis without necrosis or infection, unspecified; J96.01 Acute respiratory failure with hypoxia; N17.9 Acute kidney failure, unspecified; M62.82 Rhabdomyolysis; R57.9 Shock, unspecified; F10.139 Alcohol abuse with withdrawal, unspecified; D69.3 Immune thrombocytopenic purpura; E87.21 Acute metabolic acidosis; Z66 Do not resuscitate; B19.20 Unspecified viral hepatitis C without hepatic coma; I10 Essential (primary) hypertension; E78.5 Hyperlipidemia, unspecified; I25.10 Atherosclerotic heart disease of native coronary artery without angina pectoris; W18.30XA Fall on same level, unspecified, initial encounter; G62.9 Polyneuropathy, unspecified; F17.210 Nicotine dependence, cigarettes, uncomplicated; D64.9 Anemia, unspecified; I16.0 Hypertensive urgency; J43.9 Emphysema, unspecified; S20.219A Contusion of unspecified front wall of thorax, initial encounter; F32.A Depression, unspecified; G89.29 Other chronic pain; Z95.5 Presence of coronary angioplasty implant and graft; Z79.891 Long term (current) use of opiate analgesic; Z79.899 Other long term (current) drug therapy; I25.2 Old myocardial infarction; Z98.890 Other specified postprocedural states; Z99.81 Dependence on supplemental oxygen; Z11.52 Encounter for screening for COVID-19; Y90.0 Blood alcohol level of less than 20 mg/100 ml
CPT/HCPCS: 0241U; 36415; 36430; 36569; 36600; 51702; 51798; 70450; 71045; 76770; 80047; 80053; 80069; 81001; 82140; 82248; 82330; 82550; 82570; 82803; 82947; 83010; 83605; 83615; 83735; 83880; 84100; 84145; 84300; 84443; 84484; 85014; 85025; 85060; 85384; 85397; 85610; 85651; 85730; 86022; 86140; 86850; 86880; 86900; 86901; 87040; 92610; 93005; 93010; 93306; 94640; 94660; 94664; 94760; 94762; 96361; 96365; 96375; 99285-25; A9270; C1751; C9113; J0295; J0360; J0612; J1644; J1940; J2060; J2310; J2543; J2930; J3010; J3370; J3411; J3475; J3480; J7030; J7040; J7042; J7050; J7060; J7120; J7121; P9059